=== PATIENT | male | born 1955 | race Caucasian/White ===

== ENCOUNTER → 2016-07-18 | Outpatient (CLI) | payer SELFPAY ==
[2016-06-23 08:05] VITALS: BP 164/79
--- NOTE | 2016-07-18 12:27 | RAD ---
HISTORY: Injury, fall, left shoulder pain Study: Left shoulder three view Comparison: None Findings: The appearance of the clavicle and AC joint are unremarkable. The glenohumeral articulation is norm al in its appearance. No acute cortical disruption or dislocation can be identified. The visualize d portions of the scapula are unremarkable. In addition, the visualized portions of the left hemith orax appear normal. IMPRESSION: 1. Negative exam. Reported By:
== END ==
LOC: RAD 11:07
PROVIDERS: ATTEND Nurse Practitioner Family
DX: M25.512 Pain in left shoulder (principal)
CPT/HCPCS: 73030

== ENCOUNTER 2016-08-03 15:24 | Inpatient (IN) | payer OTHER ==
[2016-08-03] MEDS ORDERED: TUSSIONEX PENNKINETIC SUSP PO PRN (16:14)
[2016-08-03] MEDS ORDERED: NS 1/2 1000 ML IV 1,000 ML IV ONE (16:47)
--- NOTE | 2016-08-03 16:56 | DR.H&P ---
H&P - History & Physical for Day of: H&P Date: 08/03/16 - Chief Complaint Chief Complaint: SOB, COUGH AND WHEEZING, WEAKNESS - Allergies Allergies/Adverse Reactions: Allergies Allergy/AdvReac Type Severity Reaction Status Date / Time No Known Drug Allergy Allergy Verified 06/19/16 10:45 - History of Present Illness History of Present Illness: 61 WHITE MALE DIRECT ADMIT FROM DR CRAVEN OFFICE WITH COPD EXACERBATION. 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 PT'S BP ELEVATED IN OFFICE TODAY 160/110. PT VERY ANXIOUS. PT ALSO HAS SEVERE OA AND CERVICAL DDD WITH PARESTHESIA TO BILATERAL UPPER EXTREMITIES. PLAN TO ADMIT FOR MANAGEMENT OF COPD EXACERBATION, DISCUSSED MARKETING CONTENT COORDINATOR SHELTER PLACEMENT DUE TO PROGRESSING OA, RESP DECLINE. - Past Medical History Past Medical History: Arthritis, COPD - Past Surgical History Surgical History: No History - Family History Family Medical History: Diabetes Mellitus, [place], Hypertension - Social History Does patient currently use any type of tobacco product: Yes Have you used tobacco products in the last 12 months: Yes Type of Tobacco Use: Cigarettes Does any household member use tobacco: No Alcohol Use: None Drug Use: None - Review of Systems Constitutional: Weakness Eyes: No Symptoms Reported ENT: Nose Discharge, Nose Congestion, Throat Pain Respiratory: Cough, Shortness of Breath, SOB with Excertion, Sputum, Wheezing Cardiovascular: Palpitations, Light Headedness Gastrointestinal: No Symptoms Reported Genitourinary: No Symptoms Reported Musculoskeletal: Back Pain, Leg Pain, Neck Pain Skin: No Symptoms Reported Neurological: Weakness - Physical Exam Vital Signs: Blood Pressure [Right Arm] 164/79 Blood Pressure 164/79 Oriented: Normal Eyes: Normal Ear: Normal Nose: Normal Throat: Dry Respiratory: Rhonchi Throughout, Wheezes Throughout Cardiovascular: Normal : Normal Auscultation: Bowel Sounds: Normal Palpation: Normal Tenderness: Epigastric Skin: Decreased Turgur Musculoskeletal: Shoulder, Leg, Back:Thoracic, Back:Lumbar Psychiatric: Anxiety Affect: Depressed Speech Pattern: Clear, Appropriate - Assessment/Plan (1) COPD (chronic obstructive pulmonary disease) Qualifiers: COPD type: COPD with acute exacerbation Chronic bronchitis type: C Emphysema type: E Qualified Code(s): J44.1 - Chronic obstructive pulmonary disease with (acute) exacerbation Status: Chronic Plan: ADMIT, PNEUMONIA PATHWAY, BLOOD AND SPUTUM CULTURES. IV ATBX, RESP THERAPY. CXR, EKG ON ADMISSION (2) Hypertensive urgency Status: Acute Plan: RESUME HOME MEDS, MONITOR. EKG ON ADMISSION (3) Weakness Status: Acute Plan: CHRONIC, PROGRESSIVE DUE TO SEVERE C SPINE AND L SPINE DDD WITH MYELOPATHY , PAIN CONTROL, PT (4) Cervical spine degeneration Qualifiers: Spinal osteoarthritis complication: S Status: Acute (5) Depression Qualifiers: Depression Type: D Major depression recurrence: M Active/Remission status : A Major depression episode severity: M Psychotic features: P Trimester: T Status: Chronic Plan: RESUME HOME MEDS (6) HTN (hypertension) Qualifiers: Hypertension type: H Status: Chronic
[2016-08-03] MEDS ORDERED: SALINE 0.9% 3 ML NEB TX ONE (16:57)
[2016-08-03] MEDS ORDERED: SALINE 0.9% 3 ML NEB TX NEB ONE (17:13)
[2016-08-03] MEDS: NS 1/2 1000 ML IV 1,000 ML IV SCH (17:15)
[2016-08-03] MEDS: ROCEPHIN VIAL 1 GM 1 GM in NS 50 ML IV + SPIKE MINIBAG* 50 ML IV SCH (17:16)
[2016-08-03] MEDS: ROBITUSSIN DM PO SCH ×2 (17:16→20:43)
[2016-08-03] MEDS: ZESTRIL TAB 10 MG PO SCH (17:17)
[2016-08-03] MEDS: XANAX PO PRN (17:17)
[2016-08-03 17:26] LABS: BASOPHILS # (AUTO) 0.1 X10^3/uL (0.0-0.1); BASOPHILS % (AUTO) 0.9 % (0.2-1.0); EOSINOPHILS # (AUTO) 0.1 x10^3/uL (0.0-0.2); EOSINOPHILS % (AUTO) 1.2 % (0.9-2.9); HEMATOCRIT 46.2 % (42.0-54.0); HEMOGLOBIN 16.3 g/dL (13.5-18.0); LYMPHOCYTES # (AUTO) 1.6 X10^3/uL (1.3-2.9); LYMPHOCYTES % (AUTO) 18.1 % (21.0-51.0); MEAN CORPUSCULAR HGB CONC 35.3 g/dL (33.0-35.0); MEAN CORPUSCULAR VOLUME 93.4 fL (80.0-100.0); MEAN PLATELET VOLUME 8.2 fL (7.4-11.0); MONOCYTES # (AUTO) 0.6 x10^3/uL (0.3-0.8); MONOCYTES % (AUTO) 6.2 % (0.0-13.0); NEUTROPHILS # (AUTO) 6.7 x10^3/uL (2.2-4.8); NEUTROPHILS % (AUTO) 73.6 % (42.0-75.0); PLATELET COUNT 159 X10^3/uL (150.0-450.0); RED BLOOD COUNT 4.95 X10^6/uL (4.7-6.0); RED CELL DISTRIBUTION WIDTH 13.4 % (11.6-16.5); WHITE BLOOD COUNT 9.1 X10^3/uL (3.6-10.0)
[2016-08-03 17:46] LABS: ALANINE AMINOTRANSFERASE 16 Units/L (12-78); ALBUMIN 4.1 g/dL (3.4-5.0); ALKALINE PHOSPHATASE 83 Units/L (46-116); ASPARTATE AMINO TRANSFERASE 12 Units/L (15-37); BLOOD UREA NITROGEN 19 mg/dL (7-18); CARBON DIOXIDE 28.4 mmol/L (21-32); CHLORIDE 102 mmol/L (98-107); GLUCOSE 72 mg/dL (65-99); MAGNESIUM 2.2 mg/dL (1.7-2.9); SODIUM 140 mmol/L (136-145); TOTAL PROTEIN 7.3 g/dL (6.4-8.2); eGFR BLACK RACES > 60 (>60); eGFR NON BLACK RACES > 60 (>60)
[2016-08-03 18:09] VITALS: BMI 22.6
[2016-08-03] MEDS ORDERED: POTASSIUM CHLORIDE LIQ 20 MEQ UDC PO PRN (18:27)
[2016-08-03] MEDS ORDERED: K-RIDER 10 MEQ/NS 100 ML 10 MEQ/100 ML BAG IV PRN (18:27)
[2016-08-03] MEDS ORDERED: K-LYTE EFFERVESCENT PO PRN (18:27)
[2016-08-03] MEDS ORDERED: K-DUR TAB 20 MEQ PO PRN (18:27)
[2016-08-03] MEDS: NICODERM PATCH 21 MG/24 HR TD SCH (18:46)
[2016-08-03] MEDS: CHECK PATCH XX SCH (20:44)
[2016-08-03] MEDS: DUONEB 0.5 MG/3 MG NEB SCH (21:42)
[2016-08-04] MEDS ORDERED: LEXAPRO ONE (07:58)
[2016-08-04] MEDS: CHECK PATCH XX SCH ×2 (08:06→21:16)
[2016-08-04] MEDS: LEVAQUIN PREMIX IV 500 MG 500 MG/100 ML BAG IV SCH (08:07)
[2016-08-04] MEDS: NICODERM PATCH 21 MG/24 HR TD SCH (08:07)
[2016-08-04] MEDS: LEXAPRO PO SCH (08:07)
[2016-08-04] MEDS: ROCEPHIN VIAL 1 GM 1 GM in NS 50 ML IV + SPIKE MINIBAG* 50 ML IV SCH (08:08)
[2016-08-04] MEDS: NORCO 10/325 TAB PO PRN ×2 (08:08→21:15)
[2016-08-04] MEDS: ROBITUSSIN DM PO SCH ×4 (08:08→21:15)
[2016-08-04] MEDS: ZESTRIL TAB 10 MG PO SCH (08:08)
[2016-08-04] MEDS: XANAX PO PRN ×2 (08:09→21:16)
[2016-08-04] MEDS: DUONEB 0.5 MG/3 MG NEB SCH ×4 (08:40→20:52)
--- NOTE | 2016-08-04 09:06 | RAD ---
HISTORY: Cough and pneumonia Study: PA and lateral Comparison: 06/21/2016 Findings: The heart is normal. The pulmonary vessels are normal. The lungs are mildly hyperinflated but clear. No consolidation or effusion is seen. The bones are intact. IMPRESSION: Stable chronic changes with no acute abnormality seen. Reported By:
--- NOTE | 2016-08-04 09:15 | CT ---
HISTORY: Shortness of breath, COPD Study: Noncontrast CT scan of the chest Comparison: Chest x-ray done August 03, 2016 Technique: non contrasted CT images of the chest are reviewed in axial, coronal and sagittal planes. Dose reduction techniques utilized automatic exposure control. Findings: There are changes of centrilobular emphysema bilaterally. There is a noncalcified 5.8 millimeter no other nodules are seen. nodule present in the lateral segment of the right middle lobe. Depending on the patient's level of risk, patient may not need CT followup. If high risk optional CT may be obtained at 12 months. No other nodules are seen. There is no evidence of adenopathy, infiltrate or pleural fluid. There are c hanges of mild cylindrical bronchiectasis bilaterally. Heavy right and left coronary artery calcific ations are seen. There is no evidence of thoracic aortic aneurysm. Multiple small bilateral nonobstr ucting kidney stones are present. The liver and adrenal glands are normal. There is multilevel anter ior thoracic spondylosis. IMPRESSION: Noncalcified right middle lobe nodule measuring 5.8 millimeters. Other nodules are seen. There is no evidence of adenopathy or fluid. No infiltrate is seen. Changes of COPD with centrilobular emphysema and mild cylindrical bronchiectasis. Reported By:
[2016-08-04] MEDS: MOBIC TAB 15 MG PO SCH (09:51)
[2016-08-04 12:26] LABS: BASOPHILS % (AUTO) 0.5 % (0.2-1.0); EOSINOPHILS # (AUTO) 0.1 x10^3/uL (0.0-0.2); EOSINOPHILS % (AUTO) 0.8 % (0.9-2.9); HEMATOCRIT 42.3 % (42.0-54.0); HEMOGLOBIN 14.7 g/dL (13.5-18.0); LYMPHOCYTES # (AUTO) 1.3 X10^3/uL (1.3-2.9); LYMPHOCYTES % (AUTO) 17.8 % (21.0-51.0); MEAN CORPUSCULAR HEMOGLOBIN 32.9 pg (27.0-34.0); MEAN CORPUSCULAR HGB CONC 34.8 g/dL (33.0-35.0); MEAN CORPUSCULAR VOLUME 94.5 fL (80.0-100.0); MEAN PLATELET VOLUME 8.3 fL (7.4-11.0); MONOCYTES # (AUTO) 0.5 x10^3/uL (0.3-0.8); MONOCYTES % (AUTO) 6.6 % (0.0-13.0); NEUTROPHILS # (AUTO) 5.4 x10^3/uL (2.2-4.8); NEUTROPHILS % (AUTO) 74.3 % (42.0-75.0); PLATELET COUNT 137 X10^3/uL (150.0-450.0); RED BLOOD COUNT 4.48 X10^6/uL (4.7-6.0); RED CELL DISTRIBUTION WIDTH 13.5 % (11.6-16.5); WHITE BLOOD COUNT 7.3 X10^3/uL (3.6-10.0)
[2016-08-04 12:33] LABS: ALANINE AMINOTRANSFERASE 14 Units/L (12-78); ALBUMIN 3.2 g/dL (3.4-5.0); ALKALINE PHOSPHATASE 70 Units/L (46-116); ASPARTATE AMINO TRANSFERASE 10 Units/L (15-37); BLOOD UREA NITROGEN 19 mg/dL (7-18); CALCIUM 8.7 mg/dL (8.5-10.1); CARBON DIOXIDE 30.8 mmol/L (21-32); CHLORIDE 106 mmol/L (98-107); COR CA(FOR HYPOALB) 9.3 mg/dL (8.5-10.1); COR NA(FOR HYPERGLY) 141 mmol/L (136-145); CREATININE 1.12 mg/dL (0.70-1.30); GLUCOSE 116 mg/dL (65-99); SODIUM 141 mmol/L (136-145); TOTAL PROTEIN 6.1 g/dL (6.4-8.2); eGFR BLACK RACES > 60 (>60); eGFR NON BLACK RACES > 60 (>60)
[2016-08-04] MEDS: NS 1/2 1000 ML IV 1,000 ML IV SCH (12:58)
[2016-08-04] MEDS ORDERED: NS 1/2 1000 ML IV 1,000 ML IV ONE (13:00)
--- NOTE | 2016-08-04 14:48 | PCM.PROG ---
Progress Note - Progress Note for Day of Date: 08/04/16 - Subjective Subjective: patient is a 61-year-old white male who was admitted on 08/03 with COPD exacerbation. Plan to continue IV antibiotics and respiratory therapy. Patient has continued complaints of neck and upper extremity pain. Plan to continue with pain control and discussed with case management plan for rehabilitation therapy. - Past Medical Family Social History Past Med/Fam/Surg Hx: No changes since H&P Allergies: Allergies No Known Drug Allergy Allergy (Verified 06/19/16 10:45) - Review of Systems ROS: No change since H&P - Vital Signs and I&O's Vital Signs: Temperature 98 F Pulse Rate [Right Brachial] 70 Pulse Rate 68 Respiratory Rate 18 Blood Pressure [Right Arm] 105/58 Blood Pressure 164/79 O2 Sat by Pulse Oximetry 94 Intake and Output: Intake & Output 08/02/16 08/03/16 08/04/16 08/05/16 11:59 11:59 11:59 11:59 Intake Total 600 Balance 600 - Physical Exam Oriented: Normal Eyes: Normal Ear: Normal Nose: Normal Throat: Dry Respiratory: Diminished, Rhonchi Cardiovascular: Normal : Normal Auscultation: Bowel Sounds: Normal Tenderness: Epigastric Skin: Decreased Turgur Musculoskeletal: Shoulder, Leg, Back:Thoracic, Back:Lumbar Psychiatric: Anxiety Affect: Depressed Speech Pattern: Clear, Appropriate - Laboratory and Diagnostics Result Diagrams: 08/04/16 12:10 08/04/16 12:10 Labs: 08/03/16 17:15 Sputum - Expectorated Sputum Sputum Culture - Preliminary 08/03/16 17:15 Sputum - Expectorated Sputum - Final Laboratory WBC 7.3 X10^3/uL (3.6-10.0) 08/04/16 12:10 RBC 4.48 X10^6/uL (4.7-6.0) L 08/04/16 12:10 Hgb 14.7 g/dL (13.5-18.0) 08/04/16 12:10 Hct 42.3 % (42.0-54.0) 08/04/16 12:10 MCV 94.5 fL (80.0-100.0) 08/04/16 12:10 MCH 32.9 pg (27.0-34.0) 08/04/16 12:10 MCHC 34.8 g/dL (33.0-35.0) 08/04/16 12:10 RDW 13.5 % (11.6-16.5) 08/04/16 12:10 Plt Count 137 X10^3/uL (150.0-450.0) L 08/04/16 12:10 MPV 8.3 fL (7.4-11.0) 08/04/16 12:10 Neut % 74.3 % (42.0-75.0) 08/04/16 12:10 Lymph % 17.8 % (21.0-51.0) L 08/04/16 12:10 [place] % 6.6 % (0.0-13.0) 08/04/16 12:10 Eos % 0.8 % (0.9-2.9) L 08/04/16 12:10 Baso % 0.5 % (0.2-1.0) 08/04/16 12:10 Neut # 5.4 x10^3/uL (2.2-4.8) H 08/04/16 12:10 Lymph # 1.3 X10^3/uL (1.3-2.9) 08/04/16 12:10 [place] # 0.5 x10^3/uL (0.3-0.8) 08/04/16 12:10 Eos # 0.1 x10^3/uL (0.0-0.2) 08/04/16 12:10 Baso # 0.0 X10^3/uL (0.0-0.1) 08/04/16 12:10 Absolute Nucleated RBC 0.0 /100WBC 08/04/16 12:10 Sodium 141 mmol/L (136-145) 08/04/16 12:10 Corrected Sodium 141 mmol/L (136-145) 08/04/16 12:10 Potassium 3.9 mmol/L (3.5-5.1) 08/04/16 12:10 Chloride 106 mmol/L (98-107) 08/04/16 12:10 Carbon Dioxide 30.8 mmol/L (21-32) 08/04/16 12:10 BUN 19 mg/dL (7-18) H 08/04/16 12:10 Creatinine 1.12 mg/dL (0.70-1.30) 08/04/16 12:10 Est GFR (MDRD) Af Amer > 60 (>60) 08/04/16 12:10 Est GFR (MDRD) Non-Af > 60 (>60) 08/04/16 12:10 Glucose 116 mg/dL (65-99) H 08/04/16 12:10 Calcium 8.7 mg/dL (8.5-10.1) 08/04/16 12:10 Corrected Calcium 9.3 mg/dL (8.5-10.1) 08/04/16 12:10 Magnesium 2.2 mg/dL (1.7-2.9) 08/03/16 17:15 Total Bilirubin 0.30 mg/dL (0.2-1.0) 08/04/16 12:10 AST 10 Units/L (15-37) L 08/04/16 12:10 ALT 14 Units/L (12-78) 08/04/16 12:10 Alkaline Phosphatase 70 Units/L (46-116) 08/04/16 12:10 Total Protein 6.1 g/dL (6.4-8.2) L 08/04/16 12:10 Albumin 3.2 g/dL (3.4-5.0) L 08/04/16 12:10 Globulin 2.9 g/dL (2.5-4.5) 08/04/16 12:10 Albumin/Globulin Ratio 1.1 Ratio (1.1-2.1) 08/04/16 12:10 - Plan (1) COPD (chronic obstructive pulmonary disease) Status: Chronic Qualifiers: COPD type: COPD with acute exacerbation Chronic bronchitis type: C Emphysema type: E Qualified Code(s): J44.1 - Chronic obstructive pulmonary disease with (acute) exacerbation Plan: BLOOD AND SPUTUM CULTURES collected on admission. IV ATBX, RESP THERAPY. CXR, EKG ON ADMISSION (2) Hypertensive urgency Status: Acute Plan: RESUME HOME MEDS, MONITOR. EKG ON ADMISSION (3) Weakness Status: Acute Plan: CHRONIC, PROGRESSIVE DUE TO SEVERE C SPINE AND L SPINE DDD WITH MYELOPATHY , PAIN CONTROL, PT (4) Cervical spine degeneration Status: Acute Qualifiers: Spinal osteoarthritis complication: S (5) Depression Status: Chronic Qualifiers: Depression Type: D Major depression recurrence: M Active/Remission status : A Major depression episode severity: M Psychotic features: P Trimester: T Plan: RESUME HOME MEDS (6) HTN (hypertension) Status: Chronic Qualifiers: Hypertension type: H
[2016-08-05] MEDS ORDERED: NS 1/2 1000 ML IV 1,000 ML IV ONE (04:25)
[2016-08-05] MEDS: NS 1/2 1000 ML IV 1,000 ML IV SCH ×2 (06:14→09:45)
[2016-08-05 06:24] LABS: BASOPHILS % (AUTO) 0.9 % (0.2-1.0); EOSINOPHILS # (AUTO) 0.1 x10^3/uL (0.0-0.2); EOSINOPHILS % (AUTO) 1.9 % (0.9-2.9); HEMATOCRIT 39.3 % (42.0-54.0); HEMOGLOBIN 13.6 g/dL (13.5-18.0); LYMPHOCYTES # (AUTO) 1.5 X10^3/uL (1.3-2.9); LYMPHOCYTES % (AUTO) 27.5 % (21.0-51.0); MEAN CORPUSCULAR HGB CONC 34.6 g/dL (33.0-35.0); MEAN CORPUSCULAR VOLUME 95.2 fL (80.0-100.0); MEAN PLATELET VOLUME 8.6 fL (7.4-11.0); MONOCYTES # (AUTO) 0.4 x10^3/uL (0.3-0.8); MONOCYTES % (AUTO) 6.9 % (0.0-13.0); NEUTROPHILS # (AUTO) 3.4 x10^3/uL (2.2-4.8); NEUTROPHILS % (AUTO) 62.8 % (42.0-75.0); PLATELET COUNT 126 X10^3/uL (150.0-450.0); RED BLOOD COUNT 4.12 X10^6/uL (4.7-6.0); RED CELL DISTRIBUTION WIDTH 13.5 % (11.6-16.5); WHITE BLOOD COUNT 5.4 X10^3/uL (3.6-10.0)
[2016-08-05 06:30] LABS: ALANINE AMINOTRANSFERASE 13 Units/L (12-78); ALBUMIN 2.8 g/dL (3.4-5.0); ALKALINE PHOSPHATASE 70 Units/L (46-116); ASPARTATE AMINO TRANSFERASE 9 Units/L (15-37); BLOOD UREA NITROGEN 16 mg/dL (7-18); CALCIUM 8.4 mg/dL (8.5-10.1); CARBON DIOXIDE 30.7 mmol/L (21-32); CHLORIDE 108 mmol/L (98-107); COR CA(FOR HYPOALB) 9.4 mg/dL (8.5-10.1); GLUCOSE 93 mg/dL (65-99); SODIUM 143 mmol/L (136-145); TOTAL PROTEIN 5.5 g/dL (6.4-8.2); eGFR BLACK RACES > 60 (>60); eGFR NON BLACK RACES > 60 (>60)
[2016-08-05] MEDS: DUONEB 0.5 MG/3 MG NEB SCH ×4 (08:06→20:22)
[2016-08-05] MEDS ORDERED: LEXAPRO ONE (09:09)
[2016-08-05] MEDS: LEVAQUIN PREMIX IV 500 MG 500 MG/100 ML BAG IV SCH (09:43)
[2016-08-05] MEDS: ZESTRIL TAB 10 MG PO SCH (09:44)
[2016-08-05] MEDS: NICODERM PATCH 21 MG/24 HR TD SCH (09:44)
[2016-08-05] MEDS: ROCEPHIN VIAL 1 GM 1 GM in NS 50 ML IV + SPIKE MINIBAG* 50 ML IV SCH (09:44)
[2016-08-05] MEDS: LEXAPRO PO SCH (09:44)
[2016-08-05] MEDS: ROBITUSSIN DM PO SCH ×4 (09:44→21:09)
[2016-08-05] MEDS: MOBIC TAB 15 MG PO SCH (09:44)
[2016-08-05] MEDS: CHECK PATCH XX SCH ×2 (09:45→21:08)
[2016-08-05] MEDS: XANAX PO PRN ×2 (13:41→21:08)
[2016-08-05] MEDS: NORCO 10/325 TAB PO PRN (13:41)
[2016-08-06] MEDS ORDERED: NS 1/2 1000 ML IV 1,000 ML IV ONE ×2 (05:33→20:43)
[2016-08-06] MEDS: NS 1/2 1000 ML IV 1,000 ML IV SCH ×2 (05:44→20:49)
[2016-08-06 06:46] LABS: BASOPHILS # (AUTO) 0.1 X10^3/uL (0.0-0.1); BASOPHILS % (AUTO) 1.2 % (0.2-1.0); EOSINOPHILS # (AUTO) 0.1 x10^3/uL (0.0-0.2); EOSINOPHILS % (AUTO) 2.6 % (0.9-2.9); HEMATOCRIT 40.6 % (42.0-54.0); LYMPHOCYTES # (AUTO) 1.2 X10^3/uL (1.3-2.9); LYMPHOCYTES % (AUTO) 25.4 % (21.0-51.0); MEAN CORPUSCULAR HEMOGLOBIN 33.1 pg (27.0-34.0); MEAN CORPUSCULAR HGB CONC 34.6 g/dL (33.0-35.0); MEAN CORPUSCULAR VOLUME 95.7 fL (80.0-100.0); MEAN PLATELET VOLUME 8.4 fL (7.4-11.0); MONOCYTES # (AUTO) 0.4 x10^3/uL (0.3-0.8); MONOCYTES % (AUTO) 8.8 % (0.0-13.0); NEUTROPHILS # (AUTO) 2.9 x10^3/uL (2.2-4.8); PLATELET COUNT 133 X10^3/uL (150.0-450.0); RED BLOOD COUNT 4.24 X10^6/uL (4.7-6.0); RED CELL DISTRIBUTION WIDTH 13.4 % (11.6-16.5); WHITE BLOOD COUNT 4.7 X10^3/uL (3.6-10.0)
[2016-08-06 07:03] LABS: ALANINE AMINOTRANSFERASE 18 Units/L (12-78); ALBUMIN 3.3 g/dL (3.4-5.0); ALKALINE PHOSPHATASE 67 Units/L (46-116); ASPARTATE AMINO TRANSFERASE 16 Units/L (15-37); BLOOD UREA NITROGEN 12 mg/dL (7-18); CALCIUM 8.7 mg/dL (8.5-10.1); CARBON DIOXIDE 29.6 mmol/L (21-32); CHLORIDE 106 mmol/L (98-107); COR CA(FOR HYPOALB) 9.3 mg/dL (8.5-10.1); CREATININE 1.01 mg/dL (0.70-1.30); GLUCOSE 79 mg/dL (65-99); SODIUM 143 mmol/L (136-145); TOTAL PROTEIN 6.2 g/dL (6.4-8.2); eGFR BLACK RACES > 60 (>60); eGFR NON BLACK RACES > 60 (>60)
[2016-08-06] MEDS: DUONEB 0.5 MG/3 MG NEB SCH ×4 (08:02→20:42)
[2016-08-06] MEDS ORDERED: LEXAPRO ONE (09:19)
[2016-08-06] MEDS: ROCEPHIN VIAL 1 GM 1 GM in NS 50 ML IV + SPIKE MINIBAG* 50 ML IV SCH (09:39)
[2016-08-06] MEDS: MILK OF MAGNESIA PO PRN (09:39)
[2016-08-06] MEDS: ROBITUSSIN DM PO SCH ×4 (09:39→20:49)
[2016-08-06] MEDS: MOBIC TAB 15 MG PO SCH (09:39)
[2016-08-06] MEDS: COLACE CAP 100 MG PO PRN (09:39)
[2016-08-06] MEDS: CHECK PATCH XX SCH ×2 (09:40→20:52)
[2016-08-06] MEDS: NICODERM PATCH 21 MG/24 HR TD SCH (09:40)
[2016-08-06] MEDS: LEVAQUIN PREMIX IV 500 MG 500 MG/100 ML BAG IV SCH (09:40)
[2016-08-06] MEDS: ZESTRIL TAB 10 MG PO SCH (09:40)
[2016-08-06] MEDS: LEXAPRO PO SCH (09:40)
[2016-08-06] MEDS: NORCO 10/325 TAB PO PRN ×2 (13:59→20:49)
[2016-08-06] MEDS: XANAX PO PRN (20:49)
[2016-08-07] MEDS: NS 1/2 1000 ML IV 1,000 ML IV SCH ×3 (01:50→22:24)
[2016-08-07 05:13] LABS: ALANINE AMINOTRANSFERASE 18 Units/L (12-78); ALBUMIN 3.1 g/dL (3.4-5.0); ALKALINE PHOSPHATASE 59 Units/L (46-116); ASPARTATE AMINO TRANSFERASE 16 Units/L (15-37); BLOOD UREA NITROGEN 14 mg/dL (7-18); CALCIUM 8.6 mg/dL (8.5-10.1); CARBON DIOXIDE 28.6 mmol/L (21-32); CHLORIDE 107 mmol/L (98-107); COR CA(FOR HYPOALB) 9.3 mg/dL (8.5-10.1); CREATININE 0.94 mg/dL (0.70-1.30); GLUCOSE 81 mg/dL (65-99); SODIUM 143 mmol/L (136-145); TOTAL PROTEIN 5.8 g/dL (6.4-8.2); eGFR BLACK RACES > 60 (>60); eGFR NON BLACK RACES > 60 (>60)
[2016-08-07 05:14] LABS: BASOPHILS % (AUTO) 1.1 % (0.2-1.0); EOSINOPHILS # (AUTO) 0.1 x10^3/uL (0.0-0.2); EOSINOPHILS % (AUTO) 3.4 % (0.9-2.9); HEMATOCRIT 37.4 % (42.0-54.0); HEMOGLOBIN 13.1 g/dL (13.5-18.0); LYMPHOCYTES # (AUTO) 1.5 X10^3/uL (1.3-2.9); LYMPHOCYTES % (AUTO) 34.4 % (21.0-51.0); MEAN CORPUSCULAR HEMOGLOBIN 33.5 pg (27.0-34.0); MEAN CORPUSCULAR VOLUME 95.6 fL (80.0-100.0); MEAN PLATELET VOLUME 8.4 fL (7.4-11.0); MONOCYTES # (AUTO) 0.3 x10^3/uL (0.3-0.8); MONOCYTES % (AUTO) 7.9 % (0.0-13.0); NEUTROPHILS # (AUTO) 2.3 x10^3/uL (2.2-4.8); NEUTROPHILS % (AUTO) 53.2 % (42.0-75.0); PLATELET COUNT 122 X10^3/uL (150.0-450.0); RED BLOOD COUNT 3.91 X10^6/uL (4.7-6.0); RED CELL DISTRIBUTION WIDTH 13.5 % (11.6-16.5); WHITE BLOOD COUNT 4.4 X10^3/uL (3.6-10.0)
[2016-08-07] MEDS ORDERED: LEXAPRO ONE (08:37)
[2016-08-07] MEDS: DUONEB 0.5 MG/3 MG NEB SCH ×5 (08:43→20:59)
[2016-08-07] MEDS: ROCEPHIN VIAL 1 GM 1 GM in NS 50 ML IV + SPIKE MINIBAG* 50 ML IV SCH (09:17)
[2016-08-07] MEDS: LEVAQUIN PREMIX IV 500 MG 500 MG/100 ML BAG IV SCH (09:18)
[2016-08-07] MEDS: COLACE CAP 100 MG PO PRN ×2 (09:19→22:24)
[2016-08-07] MEDS: MILK OF MAGNESIA PO PRN ×2 (09:19→22:24)
[2016-08-07] MEDS: ZESTRIL TAB 10 MG PO SCH (09:19)
[2016-08-07] MEDS: ROBITUSSIN DM PO SCH ×4 (09:19→22:23)
[2016-08-07] MEDS: NICODERM PATCH 21 MG/24 HR TD SCH (09:20)
[2016-08-07] MEDS: LEXAPRO PO SCH (09:20)
[2016-08-07] MEDS: MOBIC TAB 15 MG PO SCH (09:20)
[2016-08-07] MEDS: CHECK PATCH XX SCH ×2 (09:21→22:23)
--- NOTE | 2016-08-07 13:22 | RAD ---
HISTORY: Cough, shortness of breath Study: Chest two-view Comparison: August 03, 2016, CT chest August 04, 2016 Findings: The heart is within normal limits in size. The anita are normal. The aorta is calcified. The lungs ar e hyperinflated consistent with COPD. No acute alveolar infiltrates are identified. The right middle lobe nodule described on the CT is not visible on plain film and follow up should be with CT. The b ricky thorax is unremarkable. IMPRESSION: Lungs hyperinflated but clear, consistent with COPD in the appropriate clinical setting Reported By:
--- NOTE | 2016-08-07 16:56 | PCM.PROG ---
Progress Note - Progress Note for Day of Date: 08/07/16 - Subjective Subjective: patient is a 61-year-old white male who was admitted on 08/03 with COPD exacerbation. Plan to continue IV antibiotics and respiratory therapy. Patient has continued complaints of neck and upper extremity pain. Pt has severe DDD to c spine. pt MRI sent to disability patient advocate. Plan to continue with pain control and discussed with case management plan for rehabilitation therapy. - Past Medical Family Social History Past Med/Fam/Surg Hx: No changes since H&P Allergies: Allergies No Known Drug Allergy Allergy (Verified 06/19/16 10:45) - Review of Systems ROS: No change since H&P - Vital Signs and I&O's Vital Signs: Temperature 98.1 F Pulse Rate [Right Brachial] 114 Pulse Rate 78 Respiratory Rate 18 Blood Pressure [Right Arm] 126/85 Blood Pressure 164/79 O2 Sat by Pulse Oximetry 92 Intake and Output: Intake & Output 08/05/16 08/06/16 08/07/16 08/08/16 11:59 11:59 11:59 11:59 Intake Total 2408 1832 2520 1610 Balance 2408 1832 2520 1610 - Physical Exam Oriented: Normal Eyes: Normal Ear: Normal Nose: Normal Throat: Dry Respiratory: Diminished, Rhonchi Cardiovascular: Normal : Normal Auscultation: Bowel Sounds: Normal Tenderness: Epigastric Skin: Decreased Turgur Musculoskeletal: Shoulder, Leg, Back:Thoracic, Back:Lumbar Psychiatric: Anxiety Affect: Depressed Speech Pattern: Clear, Appropriate - Laboratory and Diagnostics Result Diagrams: 08/07/16 03:40 08/07/16 03:40 Labs: 08/03/16 17:15 Blood Blood Culture - Preliminary 08/03/16 17:05 Blood Blood Culture - Preliminary 08/03/16 17:15 Sputum - Expectorated Sputum Sputum Culture - Final 08/03/16 17:15 Sputum - Expectorated Sputum - Final Laboratory WBC 4.4 X10^3/uL (3.6-10.0) 08/07/16 03:40 RBC 3.91 X10^6/uL (4.7-6.0) L 08/07/16 03:40 Hgb 13.1 g/dL (13.5-18.0) L 08/07/16 03:40 Hct 37.4 % (42.0-54.0) L 08/07/16 03:40 MCV 95.6 fL (80.0-100.0) 08/07/16 03:40 MCH 33.5 pg (27.0-34.0) 08/07/16 03:40 MCHC 35.0 g/dL (33.0-35.0) 08/07/16 03:40 RDW 13.5 % (11.6-16.5) 08/07/16 03:40 Plt Count 122 X10^3/uL (150.0-450.0) L 08/07/16 03:40 MPV 8.4 fL (7.4-11.0) 08/07/16 03:40 Neut % 53.2 % (42.0-75.0) 08/07/16 03:40 Lymph % 34.4 % (21.0-51.0) 08/07/16 03:40 [place] % 7.9 % (0.0-13.0) 08/07/16 03:40 Eos % 3.4 % (0.9-2.9) H 08/07/16 03:40 Baso % 1.1 % (0.2-1.0) H 08/07/16 03:40 Neut # 2.3 x10^3/uL (2.2-4.8) 08/07/16 03:40 Lymph # 1.5 X10^3/uL (1.3-2.9) 08/07/16 03:40 [place] # 0.3 x10^3/uL (0.3-0.8) 08/07/16 03:40 Eos # 0.1 x10^3/uL (0.0-0.2) 08/07/16 03:40 Baso # 0.0 X10^3/uL (0.0-0.1) 08/07/16 03:40 Absolute Nucleated RBC 0.0 /100WBC 08/07/16 03:40 Sodium 143 mmol/L (136-145) 08/07/16 03:40 Corrected Sodium TNP 08/07/16 03:40 Potassium 3.9 mmol/L (3.5-5.1) 08/07/16 03:40 Chloride 107 mmol/L (98-107) 08/07/16 03:40 Carbon Dioxide 28.6 mmol/L (21-32) 08/07/16 03:40 BUN 14 mg/dL (7-18) 08/07/16 03:40 Creatinine 0.94 mg/dL (0.70-1.30) 08/07/16 03:40 Est GFR (MDRD) Af Amer > 60 (>60) 08/07/16 03:40 Est GFR (MDRD) Non-Af > 60 (>60) 08/07/16 03:40 Glucose 81 mg/dL (65-99) 08/07/16 03:40 Calcium 8.6 mg/dL (8.5-10.1) 08/07/16 03:40 Corrected Calcium 9.3 mg/dL (8.5-10.1) 08/07/16 03:40 Magnesium 2.2 mg/dL (1.7-2.9) 08/03/16 17:15 Total Bilirubin 0.50 mg/dL (0.2-1.0) 08/07/16 03:40 AST 16 Units/L (15-37) 08/07/16 03:40 ALT 18 Units/L (12-78) 08/07/16 03:40 Alkaline Phosphatase 59 Units/L (46-116) 08/07/16 03:40 Total Protein 5.8 g/dL (6.4-8.2) L 08/07/16 03:40 Albumin 3.1 g/dL (3.4-5.0) L 08/07/16 03:40 Globulin 2.7 g/dL (2.5-4.5) 08/07/16 03:40 Albumin/Globulin Ratio 1.1 Ratio (1.1-2.1) 08/07/16 03:40 - Plan (1) COPD (chronic obstructive pulmonary disease) Status: Chronic Qualifiers: COPD type: COPD with acute exacerbation Chronic bronchitis type: C Emphysema type: E Qualified Code(s): J44.1 - Chronic obstructive pulmonary disease with (acute) exacerbation Plan: COUGH AND WHEEZING IMPROVED. IV ATBX, RESP THERAPY. CXR, EKG ON ADMISSION (2) Hypertensive urgency Status: Inactive Plan: RESUME HOME MEDS, MONITOR. EKG ON ADMISSION (3) Weakness Status: Acute Plan: CHRONIC, PROGRESSIVE DUE TO SEVERE C SPINE AND L SPINE DDD WITH MYELOPATHY , PAIN CONTROL, PT (4) Cervical spine degeneration Status: Chronic Qualifiers: Spinal osteoarthritis complication: S (5) Depression Status: Chronic Qualifiers: Depression Type: D Major depression recurrence: M Active/Remission status : A Major depression episode severity: M Psychotic features: P Trimester: T Plan: RESUME HOME MEDS (6) HTN (hypertension) Status: Chronic Qualifiers: Hypertension type: H
[2016-08-07] MEDS ORDERED: NS 1/2 1000 ML IV 1,000 ML IV ONE (17:20)
[2016-08-08 05:27] LABS: BASOPHILS % (AUTO) 0.8 % (0.2-1.0); EOSINOPHILS # (AUTO) 0.2 x10^3/uL (0.0-0.2); EOSINOPHILS % (AUTO) 3.3 % (0.9-2.9); HEMOGLOBIN 14.2 g/dL (13.5-18.0); LYMPHOCYTES # (AUTO) 1.5 X10^3/uL (1.3-2.9); LYMPHOCYTES % (AUTO) 26.3 % (21.0-51.0); MEAN CORPUSCULAR HGB CONC 34.5 g/dL (33.0-35.0); MEAN CORPUSCULAR VOLUME 95.7 fL (80.0-100.0); MEAN PLATELET VOLUME 8.5 fL (7.4-11.0); MONOCYTES # (AUTO) 0.4 x10^3/uL (0.3-0.8); MONOCYTES % (AUTO) 7.2 % (0.0-13.0); NEUTROPHILS # (AUTO) 3.5 x10^3/uL (2.2-4.8); NEUTROPHILS % (AUTO) 62.4 % (42.0-75.0); PLATELET COUNT 134 X10^3/uL (150.0-450.0); RED BLOOD COUNT 4.29 X10^6/uL (4.7-6.0); RED CELL DISTRIBUTION WIDTH 13.5 % (11.6-16.5); WHITE BLOOD COUNT 5.6 X10^3/uL (3.6-10.0)
[2016-08-08 05:40] LABS: ALANINE AMINOTRANSFERASE 22 Units/L (12-78); ALBUMIN 3.5 g/dL (3.4-5.0); ALKALINE PHOSPHATASE 66 Units/L (46-116); ASPARTATE AMINO TRANSFERASE 21 Units/L (15-37); BLOOD UREA NITROGEN 15 mg/dL (7-18); CALCIUM 9.1 mg/dL (8.5-10.1); CARBON DIOXIDE 29.2 mmol/L (21-32); CHLORIDE 107 mmol/L (98-107); CREATININE 0.93 mg/dL (0.70-1.30); GLUCOSE 90 mg/dL (65-99); SODIUM 144 mmol/L (136-145); TOTAL PROTEIN 6.4 g/dL (6.4-8.2); eGFR BLACK RACES > 60 (>60); eGFR NON BLACK RACES > 60 (>60)
[2016-08-08] MEDS ORDERED: LEXAPRO ONE (07:55)
[2016-08-08] MEDS: DUONEB 0.5 MG/3 MG NEB SCH ×4 (08:12→21:11)
[2016-08-08] MEDS: NICODERM PATCH 21 MG/24 HR TD SCH (09:31)
[2016-08-08] MEDS: ROBITUSSIN DM PO SCH ×4 (09:32→21:33)
[2016-08-08] MEDS: MOBIC TAB 15 MG PO SCH (09:32)
[2016-08-08] MEDS: LEXAPRO PO SCH (09:32)
[2016-08-08] MEDS: LEVAQUIN PREMIX IV 500 MG 500 MG/100 ML BAG IV SCH (09:32)
[2016-08-08] MEDS: ZESTRIL TAB 10 MG PO SCH (09:32)
[2016-08-08] MEDS: ROCEPHIN VIAL 1 GM 1 GM in NS 50 ML IV + SPIKE MINIBAG* 50 ML IV SCH (09:33)
[2016-08-08] MEDS: CHECK PATCH XX SCH ×2 (09:33→21:34)
[2016-08-08] MEDS ORDERED: NS 1/2 1000 ML IV 1,000 ML IV ONE (14:48)
[2016-08-08] MEDS: NS 1/2 1000 ML IV 1,000 ML IV SCH ×2 (15:24→20:12)
[2016-08-08] MEDS ORDERED: RESTORIL CAP 30 MG PO PRN (18:17)
--- NOTE | 2016-08-08 18:19 | PCM.PROG ---
Progress Note - Progress Note for Day of Date: 08/08/16 - Subjective Subjective: patient is a 61-year-old white male who was admitted on 08/03 with COPD exacerbation. Plan to continue IV antibiotics and respiratory therapy. Patient has continued complaints of neck and upper extremity pain. Pt has severe DDD to c spine. pt MRI sent to disability patient advocate. Plan to continue with pain control and discussed with case management plan for rehabilitation therapy. Pt unable to recieved [facility] rehab therapy due to insurance. Case management to contact adult protective services due to homeless , inability to perform ADL's - Past Medical Family Social History Past Med/Fam/Surg Hx: No changes since H&P Allergies: Allergies No Known Drug Allergy Allergy (Verified 06/19/16 10:45) - Review of Systems ROS: No change since H&P - Vital Signs and I&O's Vital Signs: Temperature 98.1 F Pulse Rate [Left Brachial] 79 Pulse Rate [Right Brachial] 90 Pulse Rate 67 Respiratory Rate 20 Blood Pressure [Left Arm] 159/86 Blood Pressure [Right Arm] 170/93 Blood Pressure 164/79 O2 Sat by Pulse Oximetry 95 Intake and Output: Intake & Output 08/06/16 08/07/16 08/08/16 08/09/16 11:59 11:59 11:59 11:59 Intake Total 1832 2520 2880 1180 Balance 1832 2520 2880 1180 - Physical Exam Oriented: Normal Eyes: Normal Ear: Normal Nose: Normal Throat: Dry Respiratory: Diminished, Rhonchi Cardiovascular: Normal : Normal Auscultation: Bowel Sounds: Normal Tenderness: Epigastric Skin: Decreased Turgur Musculoskeletal: Shoulder, Leg, Back:Thoracic, Back:Lumbar Psychiatric: Anxiety Affect: Depressed Speech Pattern: Clear, Appropriate - Laboratory and Diagnostics Result Diagrams: 08/08/16 04:05 08/08/16 04:05 Labs: 08/03/16 17:15 Blood Blood Culture - Final 08/03/16 17:05 Blood Blood Culture - Final 08/03/16 17:15 Sputum - Expectorated Sputum Sputum Culture - Final 08/03/16 17:15 Sputum - Expectorated Sputum - Final Laboratory WBC 5.6 X10^3/uL (3.6-10.0) 08/08/16 04:05 RBC 4.29 X10^6/uL (4.7-6.0) L 08/08/16 04:05 Hgb 14.2 g/dL (13.5-18.0) 08/08/16 04:05 Hct 41.0 % (42.0-54.0) L 08/08/16 04:05 MCV 95.7 fL (80.0-100.0) 08/08/16 04:05 MCH 33.0 pg (27.0-34.0) 08/08/16 04:05 MCHC 34.5 g/dL (33.0-35.0) 08/08/16 04:05 RDW 13.5 % (11.6-16.5) 08/08/16 04:05 Plt Count 134 X10^3/uL (150.0-450.0) L 08/08/16 04:05 MPV 8.5 fL (7.4-11.0) 08/08/16 04:05 Neut % 62.4 % (42.0-75.0) 08/08/16 04:05 Lymph % 26.3 % (21.0-51.0) 08/08/16 04:05 [place] % 7.2 % (0.0-13.0) 08/08/16 04:05 Eos % 3.3 % (0.9-2.9) H 08/08/16 04:05 Baso % 0.8 % (0.2-1.0) 08/08/16 04:05 Neut # 3.5 x10^3/uL (2.2-4.8) 08/08/16 04:05 Lymph # 1.5 X10^3/uL (1.3-2.9) 08/08/16 04:05 [place] # 0.4 x10^3/uL (0.3-0.8) 08/08/16 04:05 Eos # 0.2 x10^3/uL (0.0-0.2) 08/08/16 04:05 Baso # 0.0 X10^3/uL (0.0-0.1) 08/08/16 04:05 Absolute Nucleated RBC 0.1 /100WBC 08/08/16 04:05 Sodium 144 mmol/L (136-145) 08/08/16 04:05 Corrected Sodium TNP 08/08/16 04:05 Potassium 4.4 mmol/L (3.5-5.1) 08/08/16 04:05 Chloride 107 mmol/L (98-107) 08/08/16 04:05 Carbon Dioxide 29.2 mmol/L (21-32) 08/08/16 04:05 BUN 15 mg/dL (7-18) 08/08/16 04:05 Creatinine 0.93 mg/dL (0.70-1.30) 08/08/16 04:05 Est GFR (MDRD) Af Amer > 60 (>60) 08/08/16 04:05 Est GFR (MDRD) Non-Af > 60 (>60) 08/08/16 04:05 Glucose 90 mg/dL (65-99) 08/08/16 04:05 Calcium 9.1 mg/dL (8.5-10.1) 08/08/16 04:05 Corrected Calcium TNP 08/08/16 04:05 Magnesium 2.2 mg/dL (1.7-2.9) 08/03/16 17:15 Total Bilirubin 0.50 mg/dL (0.2-1.0) 08/08/16 04:05 AST 21 Units/L (15-37) 08/08/16 04:05 ALT 22 Units/L (12-78) 08/08/16 04:05 Alkaline Phosphatase 66 Units/L (46-116) 08/08/16 04:05 Total Protein 6.4 g/dL (6.4-8.2) 08/08/16 04:05 Albumin 3.5 g/dL (3.4-5.0) 08/08/16 04:05 Globulin 2.9 g/dL (2.5-4.5) 08/08/16 04:05 Albumin/Globulin Ratio 1.2 Ratio (1.1-2.1) 08/08/16 04:05 - Plan (1) COPD (chronic obstructive pulmonary disease) Status: Chronic Qualifiers: COPD type: COPD with acute exacerbation Chronic bronchitis type: C Emphysema type: E Qualified Code(s): J44.1 - Chronic obstructive pulmonary disease with (acute) exacerbation Plan: COUGH AND WHEEZING IMPROVED. IV ATBX, RESP THERAPY. CXR, EKG ON ADMISSION (2) Hypertensive urgency Status: Inactive Plan: RESUME HOME MEDS, MONITOR. EKG ON ADMISSION (3) Weakness Status: Acute Plan: CHRONIC, PROGRESSIVE DUE TO SEVERE C SPINE AND L SPINE DDD WITH MYELOPATHY , PAIN CONTROL, PT (4) Cervical spine degeneration Status: Chronic Qualifiers: Spinal osteoarthritis complication: S (5) Depression Status: Chronic Qualifiers: Depression Type: D Major depression recurrence: M Active/Remission status : A Major depression episode severity: M Psychotic features: P Trimester: T Plan: RESUME HOME MEDS (6) HTN (hypertension) Status: Chronic Qualifiers: Hypertension type: H (7) Adult failure to thrive syndrome Status: Acute Plan: Case management to contact adult protective services due to homeless, inability to perform ADL's
[2016-08-08] MEDS ORDERED: RESTORIL CAP 15 MG PO PRN (19:45)
[2016-08-09] MEDS ORDERED: NS 1/2 1000 ML IV 1,000 ML IV ONE (05:20)
[2016-08-09] MEDS: NS 1/2 1000 ML IV 1,000 ML IV SCH ×2 (05:49→13:14)
[2016-08-09] MEDS ORDERED: LEXAPRO ONE (08:17)
[2016-08-09] MEDS: LEVAQUIN PREMIX IV 500 MG 500 MG/100 ML BAG IV SCH (08:44)
[2016-08-09] MEDS: ZESTRIL TAB 10 MG PO SCH (08:47)
[2016-08-09] MEDS: NICODERM PATCH 21 MG/24 HR TD SCH (08:48)
[2016-08-09] MEDS: LEXAPRO PO SCH (08:48)
[2016-08-09] MEDS: MOBIC TAB 15 MG PO SCH (08:48)
[2016-08-09] MEDS: ROBITUSSIN DM PO SCH ×2 (08:56→13:15)
[2016-08-09] MEDS: ROCEPHIN VIAL 1 GM 1 GM in NS 50 ML IV + SPIKE MINIBAG* 50 ML IV SCH (08:56)
[2016-08-09] MEDS: CHECK PATCH XX SCH (08:57)
[2016-08-09] MEDS: DUONEB 0.5 MG/3 MG NEB SCH ×2 (09:14→12:17)
[2016-08-09 12:25] VITALS: BP 165/73
== END 2016-08-09 15:25 | disposition home or self-care (01) | DRG 192 ==
LOC: OBS 15:24 → OBSVTOIN 15:24 → MED/SURG 08-04 14:35
PROVIDERS: ADMIT Internal Medicine; ATTEND Internal Medicine
DX: J44.1 Chronic obstructive pulmonary disease with (acute) exacerbation (principal); R06.00 Dyspnea, unspecified; I16.0 Hypertensive urgency; J20.8 Acute bronchitis due to other specified organisms; R53.1 Weakness; F32.89 Other specified depressive episodes; I10 Essential (primary) hypertension; M50.30 Other cervical disc degeneration, unspecified cervical region; M54.2 Cervicalgia; M54.5 Low back pain; M79.602 Pain in left arm; M79.601 Pain in right arm; R62.7 Adult failure to thrive
CPT/HCPCS: 36415; 71020; 71250; 80053; 83735; 85025; 87040; 87070; 87205; 93005; 93010; 94640; 94760; A4222; J0696; J1956; J7620

== ENCOUNTER 2016-08-11 09:06 | Observation (INO) | payer OTHER ==
[2016-08-11 09:11] VITALS: BMI 23.3
[2016-08-11] MEDS ORDERED: DUONEB 0.5 MG/3 MG NEB ONE (09:29)
[2016-08-11] MEDS ORDERED: TORADOL 30 MG VIAL IVP ONE (09:29)
[2016-08-11] MEDS ORDERED: SOLU-Medrol 125 MG VIAL IVP ONE (09:29)
--- NOTE | 2016-08-11 09:31 | DR.GENAD ---
HPI - PCP Primary Care Physician: PARTH Yan - HPI Comment HPI Comment: PATIENT HAVE SEVERE SPINAL STENOSIS AND ARRTHRITIS PRESENTS WITH SEVERE INTRACTABLE PAIN THAT GOT WORSE YESTERDAY. HE IS ATAXIC AND IS FALLING WHEN HE WALKS. INCREASING SOB AND CHEST PAIN. NOT FEELING GOOD. - Complaint/Symptoms Chief Complaint Doctors Comments: LOWER BACK PAIN, LEFT SIDED WEAKNESS, LEFT ARM PAIN AND ATAXIA, FALLING. ALSO SOB AND CHEST PAIN. Chief Complaint:: BACK PAIN FOR SIX MONTHS, PT LEGS AND HIPS ARE HURTING - Nurses notes reviewed Nurses Notes Review: Yes - Source History Provided: Patient - Mode of Arrival Mode of Arrival: EMS - Timing Onset of Chief Complaint: 08/11/16 Came on: Gradually - Duration Duration: Constant Duration: Days - Severity Severity: Moderate PMH - PMH Past Medical History: Yes Past Medical History: Arthritis, COPD Past Medical History Comment: SPINAL STENOSIS Past Surgical History: No Surgical History: No History - Family History History of Family Medical Conditions: Yes Family Medical History: Diabetes Mellitus, [place], Hypertension - Social History Does patient currently use any type of tobacco product: Yes Have you used tobacco products in the last 12 months: Yes Type of Tobacco Use: Cigarettes How many years tobacco product used: 42 Does any household member use tobacco: No Alcohol Use: None Do you use any recreational Drugs:: No Lives Where: Homeless - infectious screening In the last 2 months have you had wt loss of >10#?: NO Have you had fever, night sweats or hemotysis?: No Have you traveled outside the country in the last 6 months?: No Isolation: Standard ROS - Review of Systems Constitutional: Weakness, Fatigue. negative: Chills, Fever Eyes: No Symptoms Reported. negative: Eye Pain, Discharge ENTM: Nose Congestion. negative: Ear Pain, Nose Discharge, Throat Pain Respiratoy: Productive Cough, Short of Breath, Wheezing. negative: Hemoptysis Cardiovascular: Chest Pain. negative: Edema, Palpitations Gastrointestinal/Abdominal: No Symptoms Reported. negative: Constipation, Diarrhea, Nausea, Vomiting Genitourinary: No Symptoms Reported. negative: Dysuria, Frequency, Hematuria Neurological: Headache, Weakness, Dizziness, Problems Walking (ATAXIA) Musculoskeletal: Joint Pain, Muscle Pain Integumentary: negative: Change in Color, Bruises, Juandice Hematologic/Lymphatic: Easy Bruising Endocrine: No Symptoms Reported All Other Systems: Reviewed and Negative PE - Vital Signs Vitals: Temperature 98.1 F Pulse Rate 90 Respiratory Rate 18 Blood Pressure [Left Arm] 153/99 Blood Pressure [Right Arm] 165/73 Blood Pressure 153/99 O2 Sat by Pulse Oximetry 95 - General Limitations: No Limitations General Appearance: Alert - Head Head Exam: Normal Inspection - Eyes Eye exam: Normal Appearance - ENT ENT Exam: Normal External Ear Exam External Ear Exam: Normal External Inspection TM/Canal Exam: Bilateral Normal Nose Exam: Normal Nose Exam Mouth Exam: Normal Inspection Throat Exam: Normal Inspection - Neck Neck Exam: Trachea Midline - Chest Chest Inspection: Symmetric Chest Wall Rise - Respiratory Respiratory Exam: Respiratory Distress Respiratory Exam: Bilateral Wheezing, Bilateral Rhonchi, Upper Wheezing, Upper Rhonchi, Lower Wheezing, Lower Rhonchi - Cardiovascular Cardiovascular Exam: Regular Rate, Normal Rhythm, Normal Heart Sounds - Abdominal Exam Abdominal Exam: Normal Bowel Sounds, Soft. negative: Tenderness - Extremities Extremities Exam: Normal Capillary Refill. negative: Edema, Calf Tenderness - Back Back Exam: Paraspinal Tenderness, Vertebral Tenderness (LUMBER) - Neurologic Neurological Exam: Alert, Oriented X3, Motor Sensory Deficit (LEFT SIDE) - Psychiatric Psychiatric Exam: Anxious - Skin Skin Exam: Normal Color MDM - Differential Diagnosis Differential Diagnosis: SPINAL STENOSIS LUMBER SPINE, LEFT SIDED WEAKNESS, CVA, COPD, CP Course - Treatment Treatment: SEE ORDERS - Consultation Consultation Comments: DISCUSS PATIENT WITH DR. ENGEL. HE WILL ADMIT PATIENT. - Education/Counseling Education/Counseling: Patient, Education Educated On: Treatment, Diagnosis ROR - Labs Reviewed Laboratory Results Reviewed?: Yes Result Diagrams: 08/11/16 09:32 08/11/16 09:32 Laboratory: WBC 5.5 X10^3/uL (3.6-10.0) 08/11/16 09:32 RBC 4.80 X10^6/uL (4.7-6.0) 08/11/16 09:32 Hgb 16.0 g/dL (13.5-18.0) 08/11/16 09:32 Hct 45.5 % (42.0-54.0) 08/11/16 09:32 MCV 94.8 fL (80.0-100.0) 08/11/16 09:32 MCH 33.3 pg (27.0-34.0) 08/11/16 09:32 MCHC 35.1 g/dL (33.0-35.0) H 04/21/17 09:32 RDW 13.3 % (11.6-16.5) 08/11/16 09:32 Plt Count 150 X10^3/uL (150.0-450.0) 08/11/16 09:32 MPV 8.3 fL (7.4-11.0) 08/11/16 09:32 Neut % 67.5 % (42.0-75.0) 08/11/16 09:32 Lymph % 21.0 % (21.0-51.0) 08/11/16 09:32 [place] % 7.8 % (0.0-13.0) 08/11/16 09:32 Eos % 2.7 % (0.9-2.9) 08/11/16 09:32 Baso % 1.0 % (0.2-1.0) 08/11/16 09:32 Neut # 3.7 x10^3/uL (2.2-4.8) 08/11/16 09:32 Lymph # 1.2 X10^3/uL (1.3-2.9) L 08/11/16 09:32 [place] # 0.4 x10^3/uL (0.3-0.8) 08/11/16 09:32 Eos # 0.2 x10^3/uL (0.0-0.2) 08/11/16 09:32 Baso # 0.1 X10^3/uL (0.0-0.1) 08/11/16 09:32 Absolute Nucleated RBC 0.1 /100WBC 08/11/16 09:32 Sodium 142 mmol/L (136-145) 08/11/16 09:32 Corrected Sodium TNP 08/11/16 09:32 Potassium 4.3 mmol/L (3.5-5.1) 08/11/16 09:32 Chloride 105 mmol/L (98-107) 08/11/16 09:32 Carbon Dioxide 27.1 mmol/L (21-32) 08/11/16 09:32 BUN 24 mg/dL (7-18) H 08/11/16 09:32 Creatinine 1.04 mg/dL (0.70-1.30) 08/11/16 09:32 Est GFR (MDRD) Af Amer > 60 (>60) 08/11/16 09:32 Est GFR (MDRD) Non-Af > 60 (>60) 08/11/16 09:32 Glucose 91 mg/dL (65-99) 08/11/16 09:32 Calcium 9.4 mg/dL (8.5-10.1) 08/11/16 09:32 Corrected Calcium TNP 08/11/16 09:32 Total Bilirubin 0.90 mg/dL (0.2-1.0) 08/11/16 09:32 AST 18 Units/L (15-37) 08/11/16 09:32 ALT 10 Units/L (12-78) L 08/11/16 09:32 Alkaline Phosphatase 70 Units/L (46-116) 08/11/16 09:32 Creatine Kinase 103 Units/L (39-308) 08/11/16 21:16 CK-MB (CK-2) 2.9 ng/mL (0-4.0) 08/11/16 21:16 CK/CKMB % Calc 2.8 % (<4) 08/11/16 21:16 Troponin I < 0.02 ng/mL (0-1.5) 08/11/16 21:16 Total Protein 7.0 g/dL (6.4-8.2) 08/11/16 09:32 Albumin 4.0 g/dL (3.4-5.0) 08/11/16 09:32 Globulin 3.0 g/dL (2.5-4.5) 08/11/16 09:32 Albumin/Globulin Ratio 1.3 Ratio (1.1-2.1) 08/11/16 09:32 Specimen Type Clean catch urine 08/11/16 19:25 Urine Color Yellow (YELLOW) 08/11/16 19:25 Urine Appearance Slightly hazy (CLEAR) 08/11/16 19:25 Urine pH 5.0 (5.0 - 8.0) 08/11/16 19:25 Ur Specific [place] 1.025 (1.000-1.030) 08/11/16 19:25 Urine Protein 1+ (NEGATIVE) 08/11/16 19:25 Urine Glucose (UA) Negative (NEGATIVE) 08/11/16 19:25 Urine Ketones Negative (NEGATIVE) 08/11/16 19:25 Urine Occult Blood 3+ (NEGATIVE) 08/11/16 19:25 Urine Nitrite Negative (NEGATIVE) 08/11/16 19:25 Urine Bilirubin Negative (NEGATIVE) 08/11/16 19:25 Urine Urobilinogen Normal (NORMAL) 08/11/16 19:25 Ur Leukocyte Esterase Negative (NEGATIVE) 08/11/16 19:25 Urine RBC 3 - 5 /HPF (NEGATIVE) 08/11/16 19:25 Urine WBC Rare /HPF (NEGATIVE) 08/11/16 19:25 Ur Squamous Epith Cells Few /HPF (NEGATIVE) 08/11/16 19:25 Urine Bacteria Trace /HPF (NEGATIVE) 08/11/16 19:25 Urine Mucus Few /HPF (NEGATIVE) 08/11/16 19:25 Ur Culture Indicated? No/not indicated 08/11/16 19:25 - XRAY XRAY Interpreted by: Radiologist XRAY Findings: REPORT DISCUSS WITH PATIENT. - EKG Rhythm: NSR (EKG NOTED) - Diagnosis Discharge Problem: Intractable pain, COPD exacerbation, Left-sided weakness, Ataxia, Chest pain - Discharge Plan Disposition: 09 ADMITTED INPATIENT Condition: Stable - Follow ups/Referrals - Instructions
[2016-08-11] MEDS ORDERED: SOLU-Medrol 125 MG VIAL ONE (09:32)
[2016-08-11] MEDS ORDERED: TORADOL 30 MG VIAL ONE (09:32)
[2016-08-11] MEDS ORDERED: DUONEB 0.5 MG/3 MG ONE (09:45)
[2016-08-11 10:00] LABS: BASOPHILS # (AUTO) 0.1 X10^3/uL (0.0-0.1); EOSINOPHILS # (AUTO) 0.2 x10^3/uL (0.0-0.2); EOSINOPHILS % (AUTO) 2.7 % (0.9-2.9); HEMATOCRIT 45.5 % (42.0-54.0); LYMPHOCYTES # (AUTO) 1.2 X10^3/uL (1.3-2.9); MEAN CORPUSCULAR HEMOGLOBIN 33.3 pg (27.0-34.0); MEAN CORPUSCULAR HGB CONC 35.1 g/dL (33.0-35.0); MEAN CORPUSCULAR VOLUME 94.8 fL (80.0-100.0); MEAN PLATELET VOLUME 8.3 fL (7.4-11.0); MONOCYTES # (AUTO) 0.4 x10^3/uL (0.3-0.8); MONOCYTES % (AUTO) 7.8 % (0.0-13.0); NEUTROPHILS # (AUTO) 3.7 x10^3/uL (2.2-4.8); NEUTROPHILS % (AUTO) 67.5 % (42.0-75.0); PLATELET COUNT 150 X10^3/uL (150.0-450.0); RED CELL DISTRIBUTION WIDTH 13.3 % (11.6-16.5); WHITE BLOOD COUNT 5.5 X10^3/uL (3.6-10.0)
[2016-08-11 10:05] LABS: BLOOD UREA NITROGEN 24 mg/dL (7-18); CALCIUM 9.4 mg/dL (8.5-10.1); CARBON DIOXIDE 27.1 mmol/L (21-32); CHLORIDE 105 mmol/L (98-107); CREATININE 1.04 mg/dL (0.70-1.30); GLUCOSE 91 mg/dL (65-99); SODIUM 142 mmol/L (136-145); TROPONIN I < 0.02 ng/mL (0-1.5); eGFR BLACK RACES > 60 (>60); eGFR NON BLACK RACES > 60 (>60)
[2016-08-11 10:09] LABS: ALANINE AMINOTRANSFERASE 10 Units/L (12-78); ALKALINE PHOSPHATASE 70 Units/L (46-116); ASPARTATE AMINO TRANSFERASE 18 Units/L (15-37); CKMB % 2.8 % (<4); CREATINE KINASE 138 Units/L (39-308); CREATINE KINASE MB 3.8 ng/mL (0-4.0)
--- NOTE | 2016-08-11 10:32 | CT ---
CT brain without contrast Indication: Left-sided weakness Comparison: 06/19/2016 Technique: Multiple axial images of the brain were obtained from the skull base to the vertex without administr ation of IV contrast. Coronal and sagittal images were also provided. Radiation dose reduction techniques were performed utilizing adjustment for MA/kVP based on patient body size. Findings: No change in right greater the left periventricular and deep white matter hypoattenuation and remote lacunar infarct within the right thalamus. No acute intraparenchymal hemorrhage or mass can be identified. No extra-axial fluid collections ar e seen. No alteration in the attenuation of the brain parenchyma can be identified to suggest acute or subacute ischemic change. The ventricular system is symmetric and nondilated. moderate mucosal thickening of the right maxillary sinus and bilateral anterior ethmoidal air cells. IMPRESSION: 1. No acute intracranial process is identified. 2. Stable chronic findings as described above. Reported By:
--- NOTE | 2016-08-11 10:34 | RAD ---
HISTORY: Chest pain Study: Single view of the chest. Comparison: 08/07/2016 Findings: The cardiomediastinal silhouette is normal. No focal consolidations, pleural effusions or pneumothor ax. Osseous structures demonstrate no acute abnormality. IMPRESSION: 1. No acute cardiopulmonary process. Reported By:
[2016-08-11] MEDS ORDERED: PHENERGAN INJ 25 MG IV PRN (11:50)
[2016-08-11] MEDS ORDERED: DUONEB 0.5 MG/3 MG NEB SCH (13:00)
[2016-08-11] MEDS: MORPHINE SULFATE INJ 4 MG IVP PRN (14:54)
[2016-08-11 16:21] LABS: CKMB % 3.1 % (<4); CREATINE KINASE MB 3.2 ng/mL (0-4.0); TROPONIN I 0.02 ng/mL (0-1.5)
[2016-08-11 19:45] LABS: BILIRUBIN,URINE NEGATIVE (NEGATIVE); BLOOD/HEMOGLOBIN,URINE 3+ (NEGATIVE); GLUCOSE, URINE NEGATIVE (NEGATIVE); KETONES,URINE NEGATIVE (NEGATIVE); LEUKOCYTE ESTERASE ,URINE NEGATIVE (NEGATIVE); NITRITES,URINE NEGATIVE (NEGATIVE); PROTEIN,URINE 1+ (NEGATIVE); UROBILINOGEN,URINE NORMAL (NORMAL)
[2016-08-11 19:55] LABS: APPEARANCE,URINE SLIGHTLY HAZY (CLEAR); COLOR,URINE YELLOW (YELLOW)
[2016-08-11 19:56] LABS: BACTERIA,URINE TRACE /HPF (NEGATIVE); MUCUS,URINE FEW /HPF (NEGATIVE); SQUAMOUS EPITHELIAL CELL,UR FEW /HPF (NEGATIVE)
[2016-08-11] MEDS: DUONEB 0.5 MG/3 MG NEB SCH (20:52)
[2016-08-11 22:05] LABS: CKMB % 2.8 % (<4); CREATINE KINASE 103 Units/L (39-308); CREATINE KINASE MB 2.9 ng/mL (0-4.0); TROPONIN I < 0.02 ng/mL (0-1.5)
[2016-08-12 05:38] LABS: BASOPHILS # (AUTO) 0.1 X10^3/uL (0.0-0.1); BASOPHILS % (AUTO) 0.7 % (0.2-1.0); EOSINOPHILS # (AUTO) 0.1 x10^3/uL (0.0-0.2); EOSINOPHILS % (AUTO) 0.9 % (0.9-2.9); HEMATOCRIT 40.8 % (42.0-54.0); HEMOGLOBIN 13.9 g/dL (13.5-18.0); LYMPHOCYTES # (AUTO) 1.9 X10^3/uL (1.3-2.9); LYMPHOCYTES % (AUTO) 19.1 % (21.0-51.0); MEAN CORPUSCULAR HEMOGLOBIN 32.5 pg (27.0-34.0); MEAN CORPUSCULAR VOLUME 95.6 fL (80.0-100.0); MEAN PLATELET VOLUME 8.4 fL (7.4-11.0); MONOCYTES # (AUTO) 0.7 x10^3/uL (0.3-0.8); MONOCYTES % (AUTO) 6.7 % (0.0-13.0); NEUTROPHILS # (AUTO) 7.2 x10^3/uL (2.2-4.8); NEUTROPHILS % (AUTO) 72.6 % (42.0-75.0); PLATELET COUNT 146 X10^3/uL (150.0-450.0); RED BLOOD COUNT 4.27 X10^6/uL (4.7-6.0); RED CELL DISTRIBUTION WIDTH 13.5 % (11.6-16.5); WHITE BLOOD COUNT 9.9 X10^3/uL (3.6-10.0)
[2016-08-12 06:19] LABS: ALANINE AMINOTRANSFERASE 18 Units/L (12-78); ALBUMIN 3.4 g/dL (3.4-5.0); ALKALINE PHOSPHATASE 66 Units/L (46-116); ASPARTATE AMINO TRANSFERASE 16 Units/L (15-37); BLOOD UREA NITROGEN 28 mg/dL (7-18); CALCIUM 8.8 mg/dL (8.5-10.1); CARBON DIOXIDE 24.7 mmol/L (21-32); CHLORIDE 105 mmol/L (98-107); CREATININE 1.12 mg/dL (0.70-1.30); GLUCOSE 96 mg/dL (65-99); SODIUM 140 mmol/L (136-145); TOTAL PROTEIN 6.1 g/dL (6.4-8.2); eGFR BLACK RACES > 60 (>60); eGFR NON BLACK RACES > 60 (>60)
[2016-08-12] MEDS ORDERED: LEXAPRO ONE (08:13)
[2016-08-12] MEDS: DUONEB 0.5 MG/3 MG NEB SCH ×2 (08:31→20:55)
[2016-08-12] MEDS: SOLU-Medrol 40 MG VIAL IVP SCH ×2 (08:31→17:04)
[2016-08-12] MEDS: ASPIRIN EC 81 MG PO SCH (08:32)
[2016-08-12] MEDS: LEXAPRO PO SCH (08:32)
[2016-08-12] MEDS: MOBIC TAB 15 MG PO SCH (08:32)
[2016-08-12] MEDS: MORPHINE SULFATE INJ 4 MG IVP PRN (08:33)
[2016-08-12] MEDS: ZANAFLEX PO SCH ×2 (15:18→20:07)
[2016-08-12] MEDS: NEURONTIN CAP 300 MG PO SCH ×2 (15:18→22:34)
[2016-08-13] MEDS: SOLU-Medrol 40 MG VIAL IVP SCH ×3 (00:25→16:56)
[2016-08-13 05:10] LABS: BASOPHILS % (AUTO) 0.1 % (0.2-1.0); HEMATOCRIT 39.9 % (42.0-54.0); HEMOGLOBIN 13.7 g/dL (13.5-18.0); LYMPHOCYTES # (AUTO) 0.5 X10^3/uL (1.3-2.9); LYMPHOCYTES % (AUTO) 5.8 % (21.0-51.0); MEAN CORPUSCULAR HGB CONC 34.2 g/dL (33.0-35.0); MEAN CORPUSCULAR VOLUME 96.2 fL (80.0-100.0); MEAN PLATELET VOLUME 8.6 fL (7.4-11.0); MONOCYTES # (AUTO) 0.1 x10^3/uL (0.3-0.8); MONOCYTES % (AUTO) 1.6 % (0.0-13.0); NEUTROPHILS # (AUTO) 7.4 x10^3/uL (2.2-4.8); NEUTROPHILS % (AUTO) 92.5 % (42.0-75.0); PLATELET COUNT 138 X10^3/uL (150.0-450.0); RED BLOOD COUNT 4.15 X10^6/uL (4.7-6.0); RED CELL DISTRIBUTION WIDTH 13.1 % (11.6-16.5); WHITE BLOOD COUNT 8.1 X10^3/uL (3.6-10.0)
[2016-08-13 05:20] LABS: ALANINE AMINOTRANSFERASE 19 Units/L (12-78); ALBUMIN 3.4 g/dL (3.4-5.0); ALKALINE PHOSPHATASE 59 Units/L (46-116); ASPARTATE AMINO TRANSFERASE 15 Units/L (15-37); BLOOD UREA NITROGEN 23 mg/dL (7-18); CALCIUM 8.9 mg/dL (8.5-10.1); CHLORIDE 107 mmol/L (98-107); COR NA(FOR HYPERGLY) 143 mmol/L (136-145); CREATININE 0.98 mg/dL (0.70-1.30); GLUCOSE 136 mg/dL (65-99); SODIUM 142 mmol/L (136-145); eGFR BLACK RACES > 60 (>60); eGFR NON BLACK RACES > 60 (>60)
[2016-08-13] MEDS: NEURONTIN CAP 300 MG PO SCH ×3 (05:32→23:12)
[2016-08-13 05:49] LABS: PLATELET MORPHOLOGY COMMENT NORMAL (NORMAL)
[2016-08-13] MEDS: DUONEB 0.5 MG/3 MG NEB SCH ×2 (08:03→20:25)
[2016-08-13] MEDS ORDERED: LEXAPRO ONE (08:53)
[2016-08-13] MEDS: MOBIC TAB 15 MG PO SCH (09:18)
[2016-08-13] MEDS: ASPIRIN EC 81 MG PO SCH (09:18)
[2016-08-13] MEDS: LEXAPRO PO SCH (09:18)
[2016-08-13] MEDS: TORADOL 30 MG VIAL IVP PRN (09:19)
[2016-08-13] MEDS: ZANAFLEX PO SCH ×2 (09:19→20:41)
[2016-08-13] MEDS: MORPHINE SULFATE INJ 4 MG IVP PRN (14:04)
[2016-08-14] MEDS: SOLU-Medrol 40 MG VIAL IVP SCH ×3 (02:00→18:00)
[2016-08-14 05:13] LABS: BASOPHILS % (AUTO) 0.1 % (0.2-1.0); HEMATOCRIT 36.7 % (42.0-54.0); HEMOGLOBIN 12.8 g/dL (13.5-18.0); LYMPHOCYTES # (AUTO) 0.6 X10^3/uL (1.3-2.9); LYMPHOCYTES % (AUTO) 5.2 % (21.0-51.0); MEAN CORPUSCULAR HEMOGLOBIN 33.1 pg (27.0-34.0); MEAN CORPUSCULAR HGB CONC 34.8 g/dL (33.0-35.0); MEAN PLATELET VOLUME 8.5 fL (7.4-11.0); MONOCYTES # (AUTO) 0.4 x10^3/uL (0.3-0.8); MONOCYTES % (AUTO) 3.9 % (0.0-13.0); NEUTROPHILS # (AUTO) 10.3 x10^3/uL (2.2-4.8); NEUTROPHILS % (AUTO) 90.8 % (42.0-75.0); PLATELET COUNT 142 X10^3/uL (150.0-450.0); RED BLOOD COUNT 3.86 X10^6/uL (4.7-6.0); RED CELL DISTRIBUTION WIDTH 13.3 % (11.6-16.5); WHITE BLOOD COUNT 11.3 X10^3/uL (3.6-10.0)
[2016-08-14 05:17] LABS: ALANINE AMINOTRANSFERASE 19 Units/L (12-78); ALBUMIN 3.2 g/dL (3.4-5.0); ALKALINE PHOSPHATASE 62 Units/L (46-116); ASPARTATE AMINO TRANSFERASE 11 Units/L (15-37); BLOOD UREA NITROGEN 26 mg/dL (7-18); CALCIUM 8.9 mg/dL (8.5-10.1); CARBON DIOXIDE 28.1 mmol/L (21-32); CHLORIDE 107 mmol/L (98-107); COR CA(FOR HYPOALB) 9.5 mg/dL (8.5-10.1); COR NA(FOR HYPERGLY) 143 mmol/L (136-145); CREATININE 0.97 mg/dL (0.70-1.30); GLUCOSE 129 mg/dL (65-99); SODIUM 142 mmol/L (136-145); TOTAL PROTEIN 5.7 g/dL (6.4-8.2); eGFR BLACK RACES > 60 (>60); eGFR NON BLACK RACES > 60 (>60)
[2016-08-14 05:42] LABS: BAND NEUTROPHILS % 3 % (0-10); PLATELET MORPHOLOGY COMMENT NORMAL (NORMAL)
[2016-08-14] MEDS: NEURONTIN CAP 300 MG PO SCH ×3 (05:54→21:01)
[2016-08-14] MEDS: DUONEB 0.5 MG/3 MG NEB SCH ×2 (08:38→20:29)
[2016-08-14] MEDS ORDERED: LEXAPRO ONE (08:57)
[2016-08-14] MEDS: MOBIC TAB 15 MG PO SCH (09:17)
[2016-08-14] MEDS: LEXAPRO PO SCH (09:17)
[2016-08-14] MEDS: ZANAFLEX PO SCH ×2 (09:17→21:01)
[2016-08-14] MEDS: ASPIRIN EC 81 MG PO SCH (09:18)
--- NOTE | 2016-08-14 13:56 | PCM.PROG ---
Progress Note - Progress Note for Day of Date: 08/14/16 - Subjective Subjective: CONFUSION, DEPRESSION AND BILATERAL UPPER EXTREMITY WEAKNESS. PT IS 61 WM ER ADMISSION ON SUNDAY AFTER PRESENTING PER EMS WITH CO SOB AND CP. PT HAS CT HEAD AND SERIAL CE'S, STABLE FOR ACUTE CHANGES. PT IS SUFFERING FROM SEVERE DEPRESSION AND CURRENTLY TAKES LEXAPRO. PLAN TO INCREASE TO 20MG, DISCUSSED MENTAL HEALTH REFERRAL WITH PT. - Past Medical Family Social History Past Med/Fam/Surg Hx: No changes since H&P Allergies: Allergies No Known Drug Allergy Allergy (Verified 06/19/16 10:45) - Review of Systems ROS: No change since H&P - Vital Signs and I&O's Vital Signs: Temperature 97.8 F Pulse Rate [Right Brachial] 65 Pulse Rate [Left Brachial] 60 Pulse Rate 82 Respiratory Rate 18 Blood Pressure [Left Arm] 129/80 Blood Pressure [Right Arm] 176/80 O2 Sat by Pulse Oximetry 95 Intake and Output: Intake & Output 08/12/16 08/13/16 08/14/16 08/15/16 11:59 11:59 11:59 11:59 Intake Total 610 1550 2510 Balance 610 1550 2510 - Physical Exam Oriented: Normal Eyes: Normal Ear: Normal Nose: Normal Throat: Dry Respiratory: Wheezes, Rhonchi Cardiovascular: Normal : Normal Auscultation: Bowel Sounds: Normal Palpation: Normal Tenderness: Normal Skin: Normal Musculoskeletal: Back:Thoracic, Back:Lumbar, Motor Deficit (3/4 HAND STRENGTH BILAT), Sensory Deficit (BILATERAL PARESTHESIAS TO HANDS, ) Psychiatric: Depression Speech Pattern: Clear, Appropriate - Laboratory and Diagnostics Result Diagrams: 08/14/16 04:45 08/14/16 04:45 Labs: Laboratory WBC 11.3 X10^3/uL (3.6-10.0) H 08/14/16 04:45 RBC 3.86 X10^6/uL (4.7-6.0) L 08/14/16 04:45 Hgb 12.8 g/dL (13.5-18.0) L 08/14/16 04:45 Hct 36.7 % (42.0-54.0) L 08/14/16 04:45 MCV 95.0 fL (80.0-100.0) 08/14/16 04:45 MCH 33.1 pg (27.0-34.0) 08/14/16 04:45 MCHC 34.8 g/dL (33.0-35.0) 08/14/16 04:45 RDW 13.3 % (11.6-16.5) 08/14/16 04:45 Plt Count 142 X10^3/uL (150.0-450.0) L 08/14/16 04:45 Plt Count Comment Adequate (ADEQUATE) 08/14/16 04:45 MPV 8.5 fL (7.4-11.0) 08/14/16 04:45 Neut % 90.8 % (42.0-75.0) H 08/14/16 04:45 Lymph % 5.2 % (21.0-51.0) L 08/14/16 04:45 [place] % 3.9 % (0.0-13.0) 08/14/16 04:45 Eos % 0.0 % (0.9-2.9) L 08/14/16 04:45 Baso % 0.1 % (0.2-1.0) L 08/14/16 04:45 Neut # 10.3 x10^3/uL (2.2-4.8) H 08/14/16 04:45 Lymph # 0.6 X10^3/uL (1.3-2.9) L 08/14/16 04:45 [place] # 0.4 x10^3/uL (0.3-0.8) 08/14/16 04:45 Eos # 0.0 x10^3/uL (0.0-0.2) 08/14/16 04:45 Baso # 0.0 X10^3/uL (0.0-0.1) 08/14/16 04:45 Absolute Nucleated RBC 0.0 /100WBC 08/14/16 04:45 Total Counted 100 08/14/16 04:45 Neutrophils % (Manual) 84 % (39-76) H 08/14/16 04:45 Band Neutrophils % 3 % (0-10) 08/14/16 04:45 Lymphocytes % (Manual) 8 % (13-43) L 08/14/16 04:45 Monocytes % (Manual) 4 % (4-9) 08/14/16 04:45 Eosinophils % (Manual) 1 % (0-6) 08/14/16 04:45 Plt Morphology Comment Normal (NORMAL) 08/14/16 04:45 RBC Morphology Normal (NORMAL) 08/14/16 04:45 Sodium 142 mmol/L (136-145) 08/14/16 04:45 Corrected Sodium 143 mmol/L (136-145) 08/14/16 04:45 Potassium 4.5 mmol/L (3.5-5.1) 08/14/16 04:45 Chloride 107 mmol/L (98-107) 08/14/16 04:45 Carbon Dioxide 28.1 mmol/L (21-32) 08/14/16 04:45 BUN 26 mg/dL (7-18) H 08/14/16 04:45 Creatinine 0.97 mg/dL (0.70-1.30) 08/14/16 04:45 Est GFR (MDRD) Af Amer > 60 (>60) 08/14/16 04:45 Est GFR (MDRD) Non-Af > 60 (>60) 08/14/16 04:45 Glucose 129 mg/dL (65-99) H 08/14/16 04:45 Calcium 8.9 mg/dL (8.5-10.1) 08/14/16 04:45 Corrected Calcium 9.5 mg/dL (8.5-10.1) 08/14/16 04:45 Total Bilirubin 0.30 mg/dL (0.2-1.0) 08/14/16 04:45 AST 11 Units/L (15-37) L 08/14/16 04:45 ALT 19 Units/L (12-78) 08/14/16 04:45 Alkaline Phosphatase 62 Units/L (46-116) 08/14/16 04:45 Creatine Kinase 103 Units/L (39-308) 08/11/16 21:16 CK-MB (CK-2) 2.9 ng/mL (0-4.0) 08/11/16 21:16 CK/CKMB % Calc 2.8 % (<4) 08/11/16 21:16 Troponin I < 0.02 ng/mL (0-1.5) 08/11/16 21:16 Total Protein 5.7 g/dL (6.4-8.2) L 08/14/16 04:45 Albumin 3.2 g/dL (3.4-5.0) L 08/14/16 04:45 Globulin 2.5 g/dL (2.5-4.5) 08/14/16 04:45 Albumin/Globulin Ratio 1.3 Ratio (1.1-2.1) 08/14/16 04:45 Specimen Type Clean catch urine 08/11/16 19:25 Urine Color Yellow (YELLOW) 08/11/16 19:25 Urine Appearance Slightly hazy (CLEAR) 08/11/16 19:25 Urine pH 5.0 (5.0 - 8.0) 08/11/16 19:25 Ur Specific [place] 1.025 (1.000-1.030) 08/11/16 19:25 Urine Protein 1+ (NEGATIVE) 08/11/16 19:25 Urine Glucose (UA) Negative (NEGATIVE) 08/11/16 19:25 Urine Ketones Negative (NEGATIVE) 08/11/16 19:25 Urine Occult Blood 3+ (NEGATIVE) 08/11/16 19:25 Urine Nitrite Negative (NEGATIVE) 08/11/16 19:25 Urine Bilirubin Negative (NEGATIVE) 08/11/16 19:25 Urine Urobilinogen Normal (NORMAL) 08/11/16 19:25 Ur Leukocyte Esterase Negative (NEGATIVE) 08/11/16 19:25 Urine RBC 3 - 5 /HPF (NEGATIVE) 08/11/16 19:25 Urine WBC Rare /HPF (NEGATIVE) 08/11/16 19:25 Ur Squamous Epith Cells Few /HPF (NEGATIVE) 08/11/16 19:25 Urine Bacteria Trace /HPF (NEGATIVE) 08/11/16 19:25 Urine Mucus Few /HPF (NEGATIVE) 08/11/16 19:25 Ur Culture Indicated? No/not indicated 08/11/16 19:25 - Plan (1) COPD exacerbation Status: Acute Plan: CONTINUE RESP THERAPY (2) Chest pain Status: Acute Qualifiers: Chest pain type: C Ischemic chest pain type: I Plan: NEGATIVE CARDIAC ENZYMES, CONTINUE BP CONTROL. RESP THERAPY (3) Left-sided weakness Status: Acute Plan: R/T CERVICAL SPINE DDD, PT (4) Adult failure to thrive syndrome Status: Acute (5) Cervical spine degeneration Status: Chronic Qualifiers: Spinal osteoarthritis complication: S (6) Depression Status: Chronic Qualifiers: Depression Type: D Major depression recurrence: M Active/Remission status : A Major depression episode severity: M Psychotic features: P Trimester: T Plan: INCREASE LEXAPRO (7) HTN (hypertension) Status: Chronic Qualifiers: Hypertension type: H
[2016-08-14] MEDS: NORVASC TAB 5 MG PO SCH (15:18)
[2016-08-14] MEDS: TORADOL 30 MG VIAL IVP PRN (15:36)
[2016-08-15] MEDS: SOLU-Medrol 40 MG VIAL IVP SCH ×2 (00:43→09:15)
[2016-08-15] MEDS: NEURONTIN CAP 300 MG PO SCH ×3 (05:43→21:32)
[2016-08-15 05:46] LABS: BASOPHILS % (AUTO) 0.2 % (0.2-1.0); HEMOGLOBIN 13.4 g/dL (13.5-18.0); LYMPHOCYTES # (AUTO) 0.6 X10^3/uL (1.3-2.9); LYMPHOCYTES % (AUTO) 5.4 % (21.0-51.0); MEAN CORPUSCULAR HEMOGLOBIN 33.1 pg (27.0-34.0); MEAN CORPUSCULAR HGB CONC 34.3 g/dL (33.0-35.0); MEAN CORPUSCULAR VOLUME 96.4 fL (80.0-100.0); MONOCYTES # (AUTO) 0.2 x10^3/uL (0.3-0.8); MONOCYTES % (AUTO) 1.6 % (0.0-13.0); NEUTROPHILS # (AUTO) 9.4 x10^3/uL (2.2-4.8); NEUTROPHILS % (AUTO) 92.8 % (42.0-75.0); PLATELET COUNT 143 X10^3/uL (150.0-450.0); RED BLOOD COUNT 4.05 X10^6/uL (4.7-6.0); RED CELL DISTRIBUTION WIDTH 13.4 % (11.6-16.5); WHITE BLOOD COUNT 10.1 X10^3/uL (3.6-10.0)
[2016-08-15 06:09] LABS: ALANINE AMINOTRANSFERASE 22 Units/L (12-78); ALBUMIN 3.3 g/dL (3.4-5.0); ALKALINE PHOSPHATASE 59 Units/L (46-116); ASPARTATE AMINO TRANSFERASE 12 Units/L (15-37); BLOOD UREA NITROGEN 26 mg/dL (7-18); CALCIUM 8.9 mg/dL (8.5-10.1); CARBON DIOXIDE 28.4 mmol/L (21-32); COR CA(FOR HYPOALB) 9.5 mg/dL (8.5-10.1); CREATININE 1.12 mg/dL (0.70-1.30); GLUCOSE 121 mg/dL (65-99); TOTAL PROTEIN 5.9 g/dL (6.4-8.2); eGFR BLACK RACES > 60 (>60); eGFR NON BLACK RACES > 60 (>60)
[2016-08-15 06:11] LABS: PLATELET MORPHOLOGY COMMENT NORMAL (NORMAL)
[2016-08-15 06:18] LABS: CHLORIDE 103 mmol/L (98-107); SODIUM 140 mmol/L (136-145)
[2016-08-15 06:30] LABS: COR NA(FOR HYPERGLY) 141 mmol/L (136-145)
[2016-08-15] MEDS: DUONEB 0.5 MG/3 MG NEB SCH ×2 (08:33→21:24)
[2016-08-15] MEDS ORDERED: LEXAPRO ONE (09:11)
[2016-08-15] MEDS: MOBIC TAB 15 MG PO SCH (09:14)
[2016-08-15] MEDS: ASPIRIN EC 81 MG PO SCH (09:14)
[2016-08-15] MEDS: LEXAPRO PO SCH (09:14)
[2016-08-15] MEDS: ZANAFLEX PO SCH ×2 (09:15→21:32)
[2016-08-15] MEDS: NORVASC TAB 5 MG PO SCH (09:15)
--- NOTE | 2016-08-15 18:42 | PCM.PROG ---
Progress Note - Subjective Subjective: CO DEPRESSION AND BILATERAL UPPER EXTREMITY WEAKNESS. PT IS 61 WM ER ADMISSION ON SUNDAY AFTER PRESENTING PER EMS WITH CO SOB AND CP. PT HAS CT HEAD AND SERIAL CE'S, STABLE FOR ACUTE CHANGES. PT IS SUFFERING FROM SEVERE DEPRESSION AND CURRENTLY TAKES LEXAPRO. PLAN TO INCREASE TO 20MG, DISCUSSED MENTAL HEALTH REFERRAL WITH PT. - Past Medical Family Social History Past Med/Fam/Surg Hx: No changes since H&P Allergies: Allergies No Known Drug Allergy Allergy (Verified 06/19/16 10:45) - Review of Systems ROS: No change since H&P - Vital Signs and I&O's Vital Signs: Temperature 97.9 F Pulse Rate [Right Brachial] 65 Pulse Rate [Left Brachial] 82 Pulse Rate 77 Respiratory Rate 18 Blood Pressure [Left Arm] 120/58 Blood Pressure [Right Arm] 184/86 O2 Sat by Pulse Oximetry 96 Intake and Output: Intake & Output 08/13/16 08/14/16 08/15/16 08/16/16 11:59 11:59 11:59 11:59 Intake Total 1550 2510 2240 800 Balance 1550 2510 2240 800 - Physical Exam Oriented: Normal Eyes: Normal Ear: Normal Nose: Normal Throat: Dry Respiratory: Wheezes, Rhonchi Cardiovascular: Normal : Normal Auscultation: Bowel Sounds: Normal Tenderness: Normal Skin: Normal Musculoskeletal: Back:Thoracic, Back:Lumbar, Motor Deficit (3/4 HAND STRENGTH BILAT), Sensory Deficit (BILATERAL PARESTHESIAS TO HANDS, ) Psychiatric: Depression Speech Pattern: Clear, Appropriate - Laboratory and Diagnostics Result Diagrams: 08/15/16 04:50 08/15/16 04:50 Labs: Laboratory WBC 10.1 X10^3/uL (3.6-10.0) H 08/15/16 04:50 RBC 4.05 X10^6/uL (4.7-6.0) L 08/15/16 04:50 Hgb 13.4 g/dL (13.5-18.0) L 08/15/16 04:50 Hct 39.0 % (42.0-54.0) L 08/15/16 04:50 MCV 96.4 fL (80.0-100.0) 08/15/16 04:50 MCH 33.1 pg (27.0-34.0) 08/15/16 04:50 MCHC 34.3 g/dL (33.0-35.0) 08/15/16 04:50 RDW 13.4 % (11.6-16.5) 08/15/16 04:50 Plt Count 143 X10^3/uL (150.0-450.0) L 08/15/16 04:50 Plt Count Comment Adequate (ADEQUATE) 08/15/16 04:50 MPV 9.0 fL (7.4-11.0) 08/15/16 04:50 Neut % 92.8 % (42.0-75.0) H 08/15/16 04:50 Lymph % 5.4 % (21.0-51.0) L 08/15/16 04:50 [place] % 1.6 % (0.0-13.0) 08/15/16 04:50 Eos % 0.0 % (0.9-2.9) L 08/15/16 04:50 Baso % 0.2 % (0.2-1.0) 08/15/16 04:50 Neut # 9.4 x10^3/uL (2.2-4.8) H 08/15/16 04:50 Lymph # 0.6 X10^3/uL (1.3-2.9) L 08/15/16 04:50 [place] # 0.2 x10^3/uL (0.3-0.8) L 08/15/16 04:50 Eos # 0.0 x10^3/uL (0.0-0.2) 08/15/16 04:50 Baso # 0.0 X10^3/uL (0.0-0.1) 08/15/16 04:50 Absolute Nucleated RBC 0.0 /100WBC 08/15/16 04:50 Total Counted 100 08/15/16 04:50 Neutrophils % (Manual) 95 % (39-76) H 08/15/16 04:50 Band Neutrophils % 3 % (0-10) 08/14/16 04:45 Lymphocytes % (Manual) 3 % (13-43) L 08/15/16 04:50 Monocytes % (Manual) 2 % (4-9) L 08/15/16 04:50 Eosinophils % (Manual) 1 % (0-6) 08/14/16 04:45 Plt Morphology Comment Normal (NORMAL) 08/15/16 04:50 RBC Morphology Normal (NORMAL) 08/15/16 04:50 Sodium 140 mmol/L (136-145) 08/15/16 04:50 Corrected Sodium 141 mmol/L (136-145) 08/15/16 04:50 Potassium 4.4 mmol/L (3.5-5.1) 08/15/16 04:50 Chloride 103 mmol/L (98-107) 08/15/16 04:50 Carbon Dioxide 28.4 mmol/L (21-32) 08/15/16 04:50 BUN 26 mg/dL (7-18) H 08/15/16 04:50 Creatinine 1.12 mg/dL (0.70-1.30) 08/15/16 04:50 Est GFR (MDRD) Af Amer > 60 (>60) 08/15/16 04:50 Est GFR (MDRD) Non-Af > 60 (>60) 08/15/16 04:50 Glucose 121 mg/dL (65-99) H 08/15/16 04:50 Calcium 8.9 mg/dL (8.5-10.1) 08/15/16 04:50 Corrected Calcium 9.5 mg/dL (8.5-10.1) 08/15/16 04:50 Total Bilirubin 0.30 mg/dL (0.2-1.0) 08/15/16 04:50 AST 12 Units/L (15-37) L 08/15/16 04:50 ALT 22 Units/L (12-78) 08/15/16 04:50 Alkaline Phosphatase 59 Units/L (46-116) 08/15/16 04:50 Creatine Kinase 103 Units/L (39-308) 08/11/16 21:16 CK-MB (CK-2) 2.9 ng/mL (0-4.0) 08/11/16 21:16 CK/CKMB % Calc 2.8 % (<4) 08/11/16 21:16 Troponin I < 0.02 ng/mL (0-1.5) 08/11/16 21:16 Total Protein 5.9 g/dL (6.4-8.2) L 08/15/16 04:50 Albumin 3.3 g/dL (3.4-5.0) L 08/15/16 04:50 Globulin 2.6 g/dL (2.5-4.5) 08/15/16 04:50 Albumin/Globulin Ratio 1.3 Ratio (1.1-2.1) 08/15/16 04:50 Specimen Type Clean catch urine 08/11/16 19:25 Urine Color Yellow (YELLOW) 08/11/16 19:25 Urine Appearance Slightly hazy (CLEAR) 08/11/16 19:25 Urine pH 5.0 (5.0 - 8.0) 08/11/16 19:25 Ur Specific [place] 1.025 (1.000-1.030) 08/11/16 19:25 Urine Protein 1+ (NEGATIVE) 08/11/16 19:25 Urine Glucose (UA) Negative (NEGATIVE) 08/11/16 19:25 Urine Ketones Negative (NEGATIVE) 08/11/16 19:25 Urine Occult Blood 3+ (NEGATIVE) 08/11/16 19:25 Urine Nitrite Negative (NEGATIVE) 08/11/16 19:25 Urine Bilirubin Negative (NEGATIVE) 08/11/16 19:25 Urine Urobilinogen Normal (NORMAL) 08/11/16 19:25 Ur Leukocyte Esterase Negative (NEGATIVE) 08/11/16 19:25 Urine RBC 3 - 5 /HPF (NEGATIVE) 08/11/16 19:25 Urine WBC Rare /HPF (NEGATIVE) 08/11/16 19:25 Ur Squamous Epith Cells Few /HPF (NEGATIVE) 08/11/16 19:25 Urine Bacteria Trace /HPF (NEGATIVE) 08/11/16 19:25 Urine Mucus Few /HPF (NEGATIVE) 08/11/16 19:25 Ur Culture Indicated? No/not indicated 08/11/16 19:25 - Plan (1) COPD exacerbation Status: Acute Plan: CONTINUE RESP THERAPY (2) Chest pain Status: Acute Qualifiers: Chest pain type: C Ischemic chest pain type: I Plan: NEGATIVE CARDIAC ENZYMES, CONTINUE BP CONTROL. RESP THERAPY (3) Left-sided weakness Status: Acute Plan: R/T CERVICAL SPINE DDD, PT (4) Adult failure to thrive syndrome Status: Acute Plan: UNABLE TO PERFORM ADLS, FOOD PREPARATION, ASSITANCE WITH GROOMING AND DRESSING. CASE MANAGEMENT WORKING ON HOUSING FOR PT (5) Cervical spine degeneration Status: Chronic Qualifiers: Spinal osteoarthritis complication: S (6) Depression Status: Chronic Qualifiers: Depression Type: D Major depression recurrence: M Active/Remission status : A Major depression episode severity: M Psychotic features: P Trimester: T Plan: INCREASE LEXAPRO (7) HTN (hypertension) Status: Chronic Qualifiers: Hypertension type: H
[2016-08-15] MEDS: TORADOL 30 MG VIAL IVP PRN (19:05)
[2016-08-16] MEDS: TORADOL 30 MG VIAL IVP PRN ×2 (06:09→16:08)
[2016-08-16] MEDS: NEURONTIN CAP 300 MG PO SCH ×3 (06:09→21:18)
[2016-08-16 06:18] LABS: BASOPHILS % (AUTO) 0.3 % (0.2-1.0); EOSINOPHILS % (AUTO) 0.2 % (0.9-2.9); HEMATOCRIT 38.3 % (42.0-54.0); HEMOGLOBIN 13.4 g/dL (13.5-18.0); LYMPHOCYTES % (AUTO) 27.2 % (21.0-51.0); MEAN CORPUSCULAR HEMOGLOBIN 33.3 pg (27.0-34.0); MEAN CORPUSCULAR HGB CONC 34.9 g/dL (33.0-35.0); MEAN CORPUSCULAR VOLUME 95.5 fL (80.0-100.0); MEAN PLATELET VOLUME 8.7 fL (7.4-11.0); MONOCYTES # (AUTO) 0.6 x10^3/uL (0.3-0.8); MONOCYTES % (AUTO) 7.6 % (0.0-13.0); NEUTROPHILS # (AUTO) 4.8 x10^3/uL (2.2-4.8); NEUTROPHILS % (AUTO) 64.7 % (42.0-75.0); PLATELET COUNT 127 X10^3/uL (150.0-450.0); RED BLOOD COUNT 4.01 X10^6/uL (4.7-6.0); RED CELL DISTRIBUTION WIDTH 13.4 % (11.6-16.5); WHITE BLOOD COUNT 7.5 X10^3/uL (3.6-10.0)
[2016-08-16 06:30] LABS: ALANINE AMINOTRANSFERASE 34 Units/L (12-78); ALKALINE PHOSPHATASE 53 Units/L (46-116); ASPARTATE AMINO TRANSFERASE 13 Units/L (15-37); BLOOD UREA NITROGEN 29 mg/dL (7-18); CALCIUM 8.2 mg/dL (8.5-10.1); CARBON DIOXIDE 28.9 mmol/L (21-32); CHLORIDE 109 mmol/L (98-107); CREATININE 0.96 mg/dL (0.70-1.30); GLUCOSE 81 mg/dL (65-99); SODIUM 144 mmol/L (136-145); TOTAL PROTEIN 5.3 g/dL (6.4-8.2); eGFR BLACK RACES > 60 (>60); eGFR NON BLACK RACES > 60 (>60)
[2016-08-16] MEDS ORDERED: LEXAPRO ONE (08:54)
[2016-08-16] MEDS: DUONEB 0.5 MG/3 MG NEB SCH ×2 (09:11→20:07)
[2016-08-16] MEDS: LEXAPRO PO SCH (09:16)
[2016-08-16] MEDS: NORVASC TAB 5 MG PO SCH (09:16)
[2016-08-16] MEDS: ASPIRIN EC 81 MG PO SCH (09:16)
[2016-08-16] MEDS: MOBIC TAB 15 MG PO SCH (09:16)
[2016-08-16] MEDS: ZANAFLEX PO SCH ×2 (09:17→21:19)
--- NOTE | 2016-08-16 18:09 | PCM.PROG ---
Progress Note - Progress Note for Day of Date: 08/16/16 - Subjective Subjective: CO DEPRESSION AND BILATERAL UPPER EXTREMITY WEAKNESS. PT SAY COMMENTS TO STAFF TODAY "I JUST WANT TO END IT ALL" "I DONT THINK I CAN LIVE LIKE THIS" CRYING TO STAFF. PT IS 61 WM ER ADMISSION ON SUNDAY AFTER PRESENTING PER EMS WITH CO SOB AND CP. PT HAS CT HEAD AND SERIAL CE'S, STABLE FOR ACUTE CHANGES. PT IS SUFFERING FROM SEVERE DEPRESSION AND CURRENTLY TAKES LEXAPRO, WHICH WE DOSE INCREASED SINCE ADMISSION. DISCUSSED MENTAL HEALTH REFERRAL WITH PT. - Past Medical Family Social History Past Med/Fam/Surg Hx: No changes since H&P Allergies: Allergies No Known Drug Allergy Allergy (Verified 06/19/16 10:45) - Review of Systems ROS: No change since H&P - Vital Signs and I&O's Vital Signs: Temperature 97.4 F Pulse Rate [Right Brachial] 77 Pulse Rate [Left Brachial] 82 Pulse Rate 63 Respiratory Rate 18 Blood Pressure [Left Arm] 114/65 Blood Pressure [Right Arm] 150/94 O2 Sat by Pulse Oximetry 93 Intake and Output: Intake & Output 08/14/16 08/15/16 08/16/16 08/17/16 11:59 11:59 11:59 11:59 Intake Total 2510 2240 1610 650 Balance 2510 2240 1610 650 - Physical Exam Oriented: Normal Eyes: Normal Ear: Normal Nose: Normal Throat: Dry Respiratory: Wheezes, Rhonchi Cardiovascular: Normal : Normal Auscultation: Bowel Sounds: Normal Tenderness: Normal Skin: Normal Musculoskeletal: Back:Thoracic, Back:Lumbar, Motor Deficit (3/4 HAND STRENGTH BILAT), Sensory Deficit (BILATERAL PARESTHESIAS TO HANDS, ) Psychiatric: Depression Mood Description: Sad Speech Pattern: Clear, Appropriate - Laboratory and Diagnostics Result Diagrams: 08/16/16 05:45 08/16/16 05:45 Labs: Laboratory WBC 7.5 X10^3/uL (3.6-10.0) 08/16/16 05:45 RBC 4.01 X10^6/uL (4.7-6.0) L 08/16/16 05:45 Hgb 13.4 g/dL (13.5-18.0) L 08/16/16 05:45 Hct 38.3 % (42.0-54.0) L 08/16/16 05:45 MCV 95.5 fL (80.0-100.0) 08/16/16 05:45 MCH 33.3 pg (27.0-34.0) 08/16/16 05:45 MCHC 34.9 g/dL (33.0-35.0) 08/16/16 05:45 RDW 13.4 % (11.6-16.5) 08/16/16 05:45 Plt Count 127 X10^3/uL (150.0-450.0) L 08/16/16 05:45 Plt Count Comment Adequate (ADEQUATE) 08/15/16 04:50 MPV 8.7 fL (7.4-11.0) 08/16/16 05:45 Neut % 64.7 % (42.0-75.0) 08/16/16 05:45 Lymph % 27.2 % (21.0-51.0) 08/16/16 05:45 [place] % 7.6 % (0.0-13.0) 08/16/16 05:45 Eos % 0.2 % (0.9-2.9) L 08/16/16 05:45 Baso % 0.3 % (0.2-1.0) 08/16/16 05:45 Neut # 4.8 x10^3/uL (2.2-4.8) 08/16/16 05:45 Lymph # 2.0 X10^3/uL (1.3-2.9) 08/16/16 05:45 [place] # 0.6 x10^3/uL (0.3-0.8) 08/16/16 05:45 Eos # 0.0 x10^3/uL (0.0-0.2) 08/16/16 05:45 Baso # 0.0 X10^3/uL (0.0-0.1) 08/16/16 05:45 Absolute Nucleated RBC 0.0 /100WBC 08/16/16 05:45 Total Counted 100 08/15/16 04:50 Neutrophils % (Manual) 95 % (39-76) H 08/15/16 04:50 Band Neutrophils % 3 % (0-10) 08/14/16 04:45 Lymphocytes % (Manual) 3 % (13-43) L 08/15/16 04:50 Monocytes % (Manual) 2 % (4-9) L 08/15/16 04:50 Eosinophils % (Manual) 1 % (0-6) 08/14/16 04:45 Plt Morphology Comment Normal (NORMAL) 08/15/16 04:50 RBC Morphology Normal (NORMAL) 08/15/16 04:50 Sodium 144 mmol/L (136-145) 08/16/16 05:45 Corrected Sodium TNP 08/16/16 05:45 Potassium 3.9 mmol/L (3.5-5.1) 08/16/16 05:45 Chloride 109 mmol/L (98-107) H 08/16/16 05:45 Carbon Dioxide 28.9 mmol/L (21-32) 08/16/16 05:45 BUN 29 mg/dL (7-18) H 08/16/16 05:45 Creatinine 0.96 mg/dL (0.70-1.30) 08/16/16 05:45 Est GFR (MDRD) Af Amer > 60 (>60) 08/16/16 05:45 Est GFR (MDRD) Non-Af > 60 (>60) 08/16/16 05:45 Glucose 81 mg/dL (65-99) 08/16/16 05:45 Calcium 8.2 mg/dL (8.5-10.1) L 08/16/16 05:45 Corrected Calcium 9.0 mg/dL (8.5-10.1) 08/16/16 05:45 Total Bilirubin 0.40 mg/dL (0.2-1.0) 08/16/16 05:45 AST 13 Units/L (15-37) L 08/16/16 05:45 ALT 34 Units/L (12-78) 08/16/16 05:45 Alkaline Phosphatase 53 Units/L (46-116) 08/16/16 05:45 Creatine Kinase 103 Units/L (39-308) 08/11/16 21:16 CK-MB (CK-2) 2.9 ng/mL (0-4.0) 08/11/16 21:16 CK/CKMB % Calc 2.8 % (<4) 08/11/16 21:16 Troponin I < 0.02 ng/mL (0-1.5) 08/11/16 21:16 Total Protein 5.3 g/dL (6.4-8.2) L 08/16/16 05:45 Albumin 3.0 g/dL (3.4-5.0) L 08/16/16 05:45 Globulin 2.3 g/dL (2.5-4.5) L 08/16/16 05:45 Albumin/Globulin Ratio 1.3 Ratio (1.1-2.1) 08/16/16 05:45 Specimen Type Clean catch urine 08/11/16 19:25 Urine Color Yellow (YELLOW) 08/11/16 19:25 Urine Appearance Slightly hazy (CLEAR) 08/11/16 19:25 Urine pH 5.0 (5.0 - 8.0) 08/11/16 19:25 Ur Specific [place] 1.025 (1.000-1.030) 08/11/16 19:25 Urine Protein 1+ (NEGATIVE) 08/11/16 19:25 Urine Glucose (UA) Negative (NEGATIVE) 08/11/16 19:25 Urine Ketones Negative (NEGATIVE) 08/11/16 19:25 Urine Occult Blood 3+ (NEGATIVE) 08/11/16 19:25 Urine Nitrite Negative (NEGATIVE) 08/11/16 19:25 Urine Bilirubin Negative (NEGATIVE) 08/11/16 19:25 Urine Urobilinogen Normal (NORMAL) 08/11/16 19:25 Ur Leukocyte Esterase Negative (NEGATIVE) 08/11/16 19:25 Urine RBC 3 - 5 /HPF (NEGATIVE) 08/11/16 19:25 Urine WBC Rare /HPF (NEGATIVE) 08/11/16 19:25 Ur Squamous Epith Cells Few /HPF (NEGATIVE) 08/11/16 19:25 Urine Bacteria Trace /HPF (NEGATIVE) 08/11/16 19:25 Urine Mucus Few /HPF (NEGATIVE) 08/11/16 19:25 Ur Culture Indicated? No/not indicated 08/11/16 19:25 - Plan (1) COPD exacerbation Status: Acute Plan: CONTINUE RESP THERAPY (2) Chest pain Status: Acute Qualifiers: Chest pain type: C Ischemic chest pain type: I Plan: NEGATIVE CARDIAC ENZYMES, CONTINUE BP CONTROL. RESP THERAPY (3) Left-sided weakness Status: Acute Plan: R/T CERVICAL SPINE DDD, PT (4) Adult failure to thrive syndrome Status: Acute Plan: UNABLE TO PERFORM ADLS, FOOD PREPARATION, ASSITANCE WITH GROOMING AND DRESSING. CASE MANAGEMENT WORKING ON HOUSING FOR PT (5) Cervical spine degeneration Status: Chronic Qualifiers: Spinal osteoarthritis complication: S (6) Depression Status: Chronic Qualifiers: Depression Type: D Major depression recurrence: M Active/Remission status : A Major depression episode severity: M Psychotic features: P Trimester: T Plan: CONTINUE LEXAPRO, INCREASE NEGATIVE COMMENTS, THREATS TO "END IT ALL". CONSULT MENTAL HEALTH, DISCUSSED PLACEMENT WITH BEHAVIOR UNIT, PT IS AGREEABLE TO MENTAL HEALTH EVALUATION. (7) HTN (hypertension) Status: Chronic Qualifiers: Hypertension type: H
[2016-08-17] MEDS: NEURONTIN CAP 300 MG PO SCH ×3 (05:50→21:11)
[2016-08-17] MEDS ORDERED: LEXAPRO ONE (09:05)
[2016-08-17] MEDS: ASPIRIN EC 81 MG PO SCH (09:08)
[2016-08-17] MEDS: MOBIC TAB 15 MG PO SCH (09:08)
[2016-08-17] MEDS: NORVASC TAB 5 MG PO SCH (09:08)
[2016-08-17] MEDS: ZANAFLEX PO SCH ×2 (09:08→21:11)
[2016-08-17] MEDS: LEXAPRO PO SCH (09:08)
[2016-08-17] MEDS: DUONEB 0.5 MG/3 MG NEB SCH ×2 (09:34→20:59)
--- NOTE | 2016-08-17 16:05 | PCM.PROG ---
Progress Note - Progress Note for Day of Date: 08/17/16 - Subjective Subjective: PT MORE CALM TODAY, STATES HE WAS VERY UPSET DO TO ARGUMENT WITH FAMILY MEMBER. PT STATES UPPER EXTREMITY WEAKNESS WORSE. PT IS 61 WM ER ADMISSION ON SUNDAY AFTER PRESENTING PER EMS WITH CO SOB AND CP. PT HAS CT HEAD AND SERIAL CE'S, STABLE FOR ACUTE CHANGES. PT IS SUFFERING FROM SEVERE DEPRESSION AND CURRENTLY TAKES LEXAPRO, WHICH WE DOSE INCREASED SINCE ADMISSION. DISCUSSED MENTAL HEALTH REFERRAL WITH PT. - Past Medical Family Social History Past Med/Fam/Surg Hx: No changes since H&P Allergies: Allergies No Known Drug Allergy Allergy (Verified 06/19/16 10:45) - Review of Systems ROS: No change since H&P - Vital Signs and I&O's Vital Signs: Temperature 98 F Pulse Rate [Right Brachial] 64 Pulse Rate [Left Brachial] 75 Pulse Rate 98 Respiratory Rate 20 Blood Pressure [Left Arm] 123/77 Blood Pressure [Right Arm] 170/90 O2 Sat by Pulse Oximetry 92 Intake and Output: Intake & Output 08/15/16 08/16/16 08/17/16 08/18/16 11:59 11:59 11:59 11:59 Intake Total 2240 3179 894 4803 Balance 2240 6857 009 1102 - Physical Exam Oriented: Normal Eyes: Normal Ear: Normal Nose: Normal Throat: Dry Respiratory: Wheezes, Rhonchi Cardiovascular: Normal : Normal Auscultation: Bowel Sounds: Normal Tenderness: Normal Skin: Normal Musculoskeletal: Back:Thoracic, Back:Lumbar, Motor Deficit (3/4 HAND STRENGTH BILAT), Sensory Deficit (BILATERAL PARESTHESIAS TO HANDS, ) Psychiatric: Depression Mood Description: Sad Speech Pattern: Clear, Appropriate - Laboratory and Diagnostics Result Diagrams: 08/16/16 05:45 08/16/16 05:45 Labs: Laboratory WBC 7.5 X10^3/uL (3.6-10.0) 08/16/16 05:45 RBC 4.01 X10^6/uL (4.7-6.0) L 08/16/16 05:45 Hgb 13.4 g/dL (13.5-18.0) L 08/16/16 05:45 Hct 38.3 % (42.0-54.0) L 08/16/16 05:45 MCV 95.5 fL (80.0-100.0) 08/16/16 05:45 MCH 33.3 pg (27.0-34.0) 08/16/16 05:45 MCHC 34.9 g/dL (33.0-35.0) 08/16/16 05:45 RDW 13.4 % (11.6-16.5) 08/16/16 05:45 Plt Count 127 X10^3/uL (150.0-450.0) L 08/16/16 05:45 Plt Count Comment Adequate (ADEQUATE) 08/15/16 04:50 MPV 8.7 fL (7.4-11.0) 08/16/16 05:45 Neut % 64.7 % (42.0-75.0) 08/16/16 05:45 Lymph % 27.2 % (21.0-51.0) 08/16/16 05:45 [place] % 7.6 % (0.0-13.0) 08/16/16 05:45 Eos % 0.2 % (0.9-2.9) L 08/16/16 05:45 Baso % 0.3 % (0.2-1.0) 08/16/16 05:45 Neut # 4.8 x10^3/uL (2.2-4.8) 08/16/16 05:45 Lymph # 2.0 X10^3/uL (1.3-2.9) 08/16/16 05:45 [place] # 0.6 x10^3/uL (0.3-0.8) 08/16/16 05:45 Eos # 0.0 x10^3/uL (0.0-0.2) 08/16/16 05:45 Baso # 0.0 X10^3/uL (0.0-0.1) 08/16/16 05:45 Absolute Nucleated RBC 0.0 /100WBC 08/16/16 05:45 Total Counted 100 08/15/16 04:50 Neutrophils % (Manual) 95 % (39-76) H 08/15/16 04:50 Band Neutrophils % 3 % (0-10) 08/14/16 04:45 Lymphocytes % (Manual) 3 % (13-43) L 08/15/16 04:50 Monocytes % (Manual) 2 % (4-9) L 08/15/16 04:50 Eosinophils % (Manual) 1 % (0-6) 08/14/16 04:45 Plt Morphology Comment Normal (NORMAL) 08/15/16 04:50 RBC Morphology Normal (NORMAL) 08/15/16 04:50 Sodium 144 mmol/L (136-145) 08/16/16 05:45 Corrected Sodium TNP 08/16/16 05:45 Potassium 3.9 mmol/L (3.5-5.1) 08/16/16 05:45 Chloride 109 mmol/L (98-107) H 08/16/16 05:45 Carbon Dioxide 28.9 mmol/L (21-32) 08/16/16 05:45 BUN 29 mg/dL (7-18) H 08/16/16 05:45 Creatinine 0.96 mg/dL (0.70-1.30) 08/16/16 05:45 Est GFR (MDRD) Af Amer > 60 (>60) 08/16/16 05:45 Est GFR (MDRD) Non-Af > 60 (>60) 08/16/16 05:45 Glucose 81 mg/dL (65-99) 08/16/16 05:45 Calcium 8.2 mg/dL (8.5-10.1) L 08/16/16 05:45 Corrected Calcium 9.0 mg/dL (8.5-10.1) 08/16/16 05:45 Total Bilirubin 0.40 mg/dL (0.2-1.0) 08/16/16 05:45 AST 13 Units/L (15-37) L 08/16/16 05:45 ALT 34 Units/L (12-78) 08/16/16 05:45 Alkaline Phosphatase 53 Units/L (46-116) 08/16/16 05:45 Creatine Kinase 103 Units/L (39-308) 08/11/16 21:16 CK-MB (CK-2) 2.9 ng/mL (0-4.0) 08/11/16 21:16 CK/CKMB % Calc 2.8 % (<4) 08/11/16 21:16 Troponin I < 0.02 ng/mL (0-1.5) 08/11/16 21:16 Total Protein 5.3 g/dL (6.4-8.2) L 08/16/16 05:45 Albumin 3.0 g/dL (3.4-5.0) L 08/16/16 05:45 Globulin 2.3 g/dL (2.5-4.5) L 08/16/16 05:45 Albumin/Globulin Ratio 1.3 Ratio (1.1-2.1) 08/16/16 05:45 Specimen Type Clean catch urine 08/11/16 19:25 Urine Color Yellow (YELLOW) 08/11/16 19:25 Urine Appearance Slightly hazy (CLEAR) 08/11/16 19:25 Urine pH 5.0 (5.0 - 8.0) 08/11/16 19:25 Ur Specific [place] 1.025 (1.000-1.030) 08/11/16 19:25 Urine Protein 1+ (NEGATIVE) 08/11/16 19:25 Urine Glucose (UA) Negative (NEGATIVE) 08/11/16 19:25 Urine Ketones Negative (NEGATIVE) 08/11/16 19:25 Urine Occult Blood 3+ (NEGATIVE) 08/11/16 19:25 Urine Nitrite Negative (NEGATIVE) 08/11/16 19:25 Urine Bilirubin Negative (NEGATIVE) 08/11/16 19:25 Urine Urobilinogen Normal (NORMAL) 08/11/16 19:25 Ur Leukocyte Esterase Negative (NEGATIVE) 08/11/16 19:25 Urine RBC 3 - 5 /HPF (NEGATIVE) 08/11/16 19:25 Urine WBC Rare /HPF (NEGATIVE) 08/11/16 19:25 Ur Squamous Epith Cells Few /HPF (NEGATIVE) 08/11/16 19:25 Urine Bacteria Trace /HPF (NEGATIVE) 08/11/16 19:25 Urine Mucus Few /HPF (NEGATIVE) 08/11/16 19:25 Ur Culture Indicated? No/not indicated 08/11/16 19:25 - Plan (1) COPD exacerbation Status: Acute Plan: CONTINUE RESP THERAPY (2) Chest pain Status: Acute Qualifiers: Chest pain type: C Ischemic chest pain type: I Plan: NEGATIVE CARDIAC ENZYMES, CONTINUE BP CONTROL. RESP THERAPY (3) Left-sided weakness Status: Acute Plan: R/T CERVICAL SPINE DDD, PT (4) Adult failure to thrive syndrome Status: Acute Plan: UNABLE TO PERFORM ADLS, FOOD PREPARATION, ASSITANCE WITH GROOMING AND DRESSING. CASE MANAGEMENT WORKING ON HOUSING FOR PT (5) Cervical spine degeneration Status: Chronic Qualifiers: Spinal osteoarthritis complication: S (6) Depression Status: Chronic Qualifiers: Depression Type: D Major depression recurrence: M Active/Remission status : A Major depression episode severity: M Psychotic features: P Trimester: T Plan: CONTINUE LEXAPRO. CONSULT MENTAL HEALTH, DISCUSSED PLACEMENT WITH BEHAVIOR UNIT, PT IS AGREEABLE TO MENTAL HEALTH EVALUATION. (7) HTN (hypertension) Status: Chronic Qualifiers: Hypertension type: H
[2016-08-17] MEDS: TORADOL 30 MG VIAL IVP PRN (19:54)
[2016-08-18] MEDS: NEURONTIN CAP 300 MG PO SCH ×3 (05:31→21:00)
[2016-08-18] MEDS ORDERED: LEXAPRO ONE (07:38)
[2016-08-18] MEDS: MOBIC TAB 15 MG PO SCH (08:36)
[2016-08-18] MEDS: ZANAFLEX PO SCH ×2 (08:36→21:00)
[2016-08-18] MEDS: LEXAPRO PO SCH (08:36)
[2016-08-18] MEDS: ASPIRIN EC 81 MG PO SCH (08:36)
[2016-08-18] MEDS: NORVASC TAB 5 MG PO SCH (08:37)
[2016-08-18] MEDS: DUONEB 0.5 MG/3 MG NEB SCH ×2 (09:05→20:30)
--- NOTE | 2016-08-18 15:46 | PCM.PROG ---
Progress Note - Progress Note for Day of Date: 08/18/16 - Subjective Subjective: PT MORE CALM TODAY, PT ACCEPTED AT [facility], BED PENDING. PT IS 61 WM ER ADMISSION ON SUNDAY AFTER PRESENTING PER EMS WITH CO SOB AND CP. PT HAS CT HEAD AND SERIAL CE'S, STABLE FOR ACUTE CHANGES. PT IS SUFFERING FROM SEVERE DEPRESSION AND CURRENTLY TAKES LEXAPRO, WHICH WE DOSE INCREASED SINCE ADMISSION. DISCUSSED MENTAL HEALTH REFERRAL WITH PT. - Past Medical Family Social History Past Med/Fam/Surg Hx: No changes since H&P Allergies: Allergies No Known Drug Allergy Allergy (Verified 06/19/16 10:45) - Review of Systems ROS: No change since H&P - Vital Signs and I&O's Vital Signs: Temperature 97.6 F Pulse Rate [Right Brachial] 71 Pulse Rate [Left Brachial] 83 Pulse Rate 78 Respiratory Rate 20 Blood Pressure [Left Arm] 124/74 Blood Pressure [Right Arm] 170/90 O2 Sat by Pulse Oximetry 96 Intake and Output: Intake & Output 08/16/16 08/17/16 08/18/16 08/19/16 11:59 11:59 11:59 11:59 Intake Total 6906 178 9724 1660 Balance 9087 779 9487 1660 - Physical Exam Oriented: Normal Eyes: Normal Ear: Normal Nose: Normal Throat: Dry Respiratory: Wheezes, Rhonchi Cardiovascular: Normal : Normal Auscultation: Bowel Sounds: Normal Tenderness: Normal Skin: Normal Musculoskeletal: Back:Thoracic, Back:Lumbar, Motor Deficit (3/4 HAND STRENGTH BILAT), Sensory Deficit (BILATERAL PARESTHESIAS TO HANDS, ) Psychiatric: Depression Mood Description: Sad Speech Pattern: Clear - Laboratory and Diagnostics Result Diagrams: 08/16/16 05:45 08/16/16 05:45 Labs: Laboratory WBC 7.5 X10^3/uL (3.6-10.0) 08/16/16 05:45 RBC 4.01 X10^6/uL (4.7-6.0) L 08/16/16 05:45 Hgb 13.4 g/dL (13.5-18.0) L 08/16/16 05:45 Hct 38.3 % (42.0-54.0) L 08/16/16 05:45 MCV 95.5 fL (80.0-100.0) 08/16/16 05:45 MCH 33.3 pg (27.0-34.0) 08/16/16 05:45 MCHC 34.9 g/dL (33.0-35.0) 08/16/16 05:45 RDW 13.4 % (11.6-16.5) 08/16/16 05:45 Plt Count 127 X10^3/uL (150.0-450.0) L 08/16/16 05:45 Plt Count Comment Adequate (ADEQUATE) 08/15/16 04:50 MPV 8.7 fL (7.4-11.0) 08/16/16 05:45 Neut % 64.7 % (42.0-75.0) 08/16/16 05:45 Lymph % 27.2 % (21.0-51.0) 08/16/16 05:45 [place] % 7.6 % (0.0-13.0) 08/16/16 05:45 Eos % 0.2 % (0.9-2.9) L 08/16/16 05:45 Baso % 0.3 % (0.2-1.0) 08/16/16 05:45 Neut # 4.8 x10^3/uL (2.2-4.8) 08/16/16 05:45 Lymph # 2.0 X10^3/uL (1.3-2.9) 08/16/16 05:45 [place] # 0.6 x10^3/uL (0.3-0.8) 08/16/16 05:45 Eos # 0.0 x10^3/uL (0.0-0.2) 08/16/16 05:45 Baso # 0.0 X10^3/uL (0.0-0.1) 08/16/16 05:45 Absolute Nucleated RBC 0.0 /100WBC 08/16/16 05:45 Total Counted 100 08/15/16 04:50 Neutrophils % (Manual) 95 % (39-76) H 08/15/16 04:50 Band Neutrophils % 3 % (0-10) 08/14/16 04:45 Lymphocytes % (Manual) 3 % (13-43) L 08/15/16 04:50 Monocytes % (Manual) 2 % (4-9) L 08/15/16 04:50 Eosinophils % (Manual) 1 % (0-6) 08/14/16 04:45 Plt Morphology Comment Normal (NORMAL) 08/15/16 04:50 RBC Morphology Normal (NORMAL) 08/15/16 04:50 Sodium 144 mmol/L (136-145) 08/16/16 05:45 Corrected Sodium TNP 08/16/16 05:45 Potassium 3.9 mmol/L (3.5-5.1) 08/16/16 05:45 Chloride 109 mmol/L (98-107) H 08/16/16 05:45 Carbon Dioxide 28.9 mmol/L (21-32) 08/16/16 05:45 BUN 29 mg/dL (7-18) H 08/16/16 05:45 Creatinine 0.96 mg/dL (0.70-1.30) 08/16/16 05:45 Est GFR (MDRD) Af Amer > 60 (>60) 08/16/16 05:45 Est GFR (MDRD) Non-Af > 60 (>60) 08/16/16 05:45 Glucose 81 mg/dL (65-99) 08/16/16 05:45 Calcium 8.2 mg/dL (8.5-10.1) L 08/16/16 05:45 Corrected Calcium 9.0 mg/dL (8.5-10.1) 08/16/16 05:45 Total Bilirubin 0.40 mg/dL (0.2-1.0) 08/16/16 05:45 AST 13 Units/L (15-37) L 08/16/16 05:45 ALT 34 Units/L (12-78) 08/16/16 05:45 Alkaline Phosphatase 53 Units/L (46-116) 08/16/16 05:45 Creatine Kinase 103 Units/L (39-308) 08/11/16 21:16 CK-MB (CK-2) 2.9 ng/mL (0-4.0) 08/11/16 21:16 CK/CKMB % Calc 2.8 % (<4) 08/11/16 21:16 Troponin I < 0.02 ng/mL (0-1.5) 08/11/16 21:16 Total Protein 5.3 g/dL (6.4-8.2) L 08/16/16 05:45 Albumin 3.0 g/dL (3.4-5.0) L 08/16/16 05:45 Globulin 2.3 g/dL (2.5-4.5) L 08/16/16 05:45 Albumin/Globulin Ratio 1.3 Ratio (1.1-2.1) 08/16/16 05:45 Specimen Type Clean catch urine 08/11/16 19:25 Urine Color Yellow (YELLOW) 08/11/16 19:25 Urine Appearance Slightly hazy (CLEAR) 08/11/16 19:25 Urine pH 5.0 (5.0 - 8.0) 08/11/16 19:25 Ur Specific [place] 1.025 (1.000-1.030) 08/11/16 19:25 Urine Protein 1+ (NEGATIVE) 08/11/16 19:25 Urine Glucose (UA) Negative (NEGATIVE) 08/11/16 19:25 Urine Ketones Negative (NEGATIVE) 08/11/16 19:25 Urine Occult Blood 3+ (NEGATIVE) 08/11/16 19:25 Urine Nitrite Negative (NEGATIVE) 08/11/16 19:25 Urine Bilirubin Negative (NEGATIVE) 08/11/16 19:25 Urine Urobilinogen Normal (NORMAL) 08/11/16 19:25 Ur Leukocyte Esterase Negative (NEGATIVE) 08/11/16 19:25 Urine RBC 3 - 5 /HPF (NEGATIVE) 08/11/16 19:25 Urine WBC Rare /HPF (NEGATIVE) 08/11/16 19:25 Ur Squamous Epith Cells Few /HPF (NEGATIVE) 08/11/16 19:25 Urine Bacteria Trace /HPF (NEGATIVE) 08/11/16 19:25 Urine Mucus Few /HPF (NEGATIVE) 08/11/16 19:25 Ur Culture Indicated? No/not indicated 08/11/16 19:25 - Plan (1) COPD exacerbation Status: Acute Plan: CONTINUE RESP THERAPY (2) Chest pain Status: Acute Qualifiers: Chest pain type: C Ischemic chest pain type: I Plan: NEGATIVE CARDIAC ENZYMES, CONTINUE BP CONTROL. RESP THERAPY (3) Left-sided weakness Status: Acute Plan: R/T CERVICAL SPINE DDD, PT (4) Adult failure to thrive syndrome Status: Acute Plan: UNABLE TO PERFORM ADLS, FOOD PREPARATION, ASSITANCE WITH GROOMING AND DRESSING. CASE MANAGEMENT WORKING ON HOUSING FOR PT (5) Cervical spine degeneration Status: Chronic Qualifiers: Spinal osteoarthritis complication: S (6) Depression Status: Chronic Qualifiers: Depression Type: D Major depression recurrence: M Active/Remission status : A Major depression episode severity: M Psychotic features: P Trimester: T Plan: CONTINUE LEXAPRO. CONSULT MENTAL HEALTH, DISCUSSED PLACEMENT WITH BEHAVIOR UNIT, PT IS AGREEABLE TO MENTAL HEALTH EVALUATION. (7) HTN (hypertension) Status: Chronic Qualifiers: Hypertension type: H
[2016-08-18] MEDS: TORADOL 30 MG VIAL IVP PRN (20:58)
[2016-08-19] MEDS: NEURONTIN CAP 300 MG PO SCH ×3 (05:35→20:59)
[2016-08-19] MEDS ORDERED: LEXAPRO ONE (08:32)
[2016-08-19] MEDS: DUONEB 0.5 MG/3 MG NEB SCH ×2 (08:52→20:21)
[2016-08-19] MEDS: MOBIC TAB 15 MG PO SCH (09:06)
[2016-08-19] MEDS: LEXAPRO PO SCH (09:06)
[2016-08-19] MEDS: NORVASC TAB 5 MG PO SCH (09:06)
[2016-08-19] MEDS: ZANAFLEX PO SCH ×2 (09:06→20:59)
[2016-08-19] MEDS: ASPIRIN EC 81 MG PO SCH (09:06)
[2016-08-19] MEDS: MORPHINE SULFATE INJ 4 MG IVP PRN (19:28)
[2016-08-20] MEDS: NEURONTIN CAP 300 MG PO SCH ×3 (05:49→21:37)
[2016-08-20 06:23] LABS: BASOPHILS % (AUTO) 0.4 % (0.2-1.0); EOSINOPHILS # (AUTO) 0.2 x10^3/uL (0.0-0.2); HEMATOCRIT 37.9 % (42.0-54.0); HEMOGLOBIN 12.9 g/dL (13.5-18.0); LYMPHOCYTES # (AUTO) 1.7 X10^3/uL (1.3-2.9); LYMPHOCYTES % (AUTO) 26.6 % (21.0-51.0); MEAN CORPUSCULAR HGB CONC 34.2 g/dL (33.0-35.0); MEAN CORPUSCULAR VOLUME 96.7 fL (80.0-100.0); MEAN PLATELET VOLUME 8.5 fL (7.4-11.0); MONOCYTES # (AUTO) 0.4 x10^3/uL (0.3-0.8); PLATELET COUNT 135 X10^3/uL (150.0-450.0); RED BLOOD COUNT 3.92 X10^6/uL (4.7-6.0); RED CELL DISTRIBUTION WIDTH 13.3 % (11.6-16.5); WHITE BLOOD COUNT 6.3 X10^3/uL (3.6-10.0)
[2016-08-20 06:27] LABS: ALANINE AMINOTRANSFERASE 17 Units/L (12-78); ALBUMIN 2.8 g/dL (3.4-5.0); ALKALINE PHOSPHATASE 59 Units/L (46-116); ASPARTATE AMINO TRANSFERASE 11 Units/L (15-37); BLOOD UREA NITROGEN 20 mg/dL (7-18); CALCIUM 8.3 mg/dL (8.5-10.1); CARBON DIOXIDE 27.1 mmol/L (21-32); CHLORIDE 108 mmol/L (98-107); COR CA(FOR HYPOALB) 9.3 mg/dL (8.5-10.1); CREATININE 0.93 mg/dL (0.70-1.30); GLUCOSE 74 mg/dL (65-99); SODIUM 143 mmol/L (136-145); TOTAL PROTEIN 5.5 g/dL (6.4-8.2); eGFR BLACK RACES > 60 (>60); eGFR NON BLACK RACES > 60 (>60)
[2016-08-20] MEDS ORDERED: LEXAPRO ONE (08:33)
[2016-08-20] MEDS: MOBIC TAB 15 MG PO SCH (08:49)
[2016-08-20] MEDS: ASPIRIN EC 81 MG PO SCH (08:49)
[2016-08-20] MEDS: LEXAPRO PO SCH (08:49)
[2016-08-20] MEDS: NORVASC TAB 5 MG PO SCH (08:49)
[2016-08-20] MEDS: ZANAFLEX PO SCH ×2 (08:49→21:37)
[2016-08-20] MEDS: DUONEB 0.5 MG/3 MG NEB SCH ×2 (08:54→20:37)
[2016-08-21] MEDS: NEURONTIN CAP 300 MG PO SCH ×3 (05:45→22:13)
[2016-08-21] MEDS: DUONEB 0.5 MG/3 MG NEB SCH ×2 (08:10→21:14)
[2016-08-21] MEDS ORDERED: LEXAPRO ONE (08:11)
[2016-08-21] MEDS: MOBIC TAB 15 MG PO SCH (08:45)
[2016-08-21] MEDS: LEXAPRO PO SCH (08:45)
[2016-08-21] MEDS: ZANAFLEX PO SCH ×2 (08:45→22:13)
[2016-08-21] MEDS: ASPIRIN EC 81 MG PO SCH (08:46)
[2016-08-21] MEDS: NORVASC TAB 5 MG PO SCH (08:46)
--- NOTE | 2016-08-21 14:11 | PCM.PROG ---
Progress Note - Progress Note for Day of Date: 08/21/16 - Subjective Subjective: PT MORE CALM TODAY, PT ACCEPTED AT [facility], BED PENDING. PT IS 61 WM ER ADMISSION ON SUNDAY AFTER PRESENTING PER EMS WITH CO SOB AND CP. PT HAS CT HEAD AND SERIAL CE'S, STABLE FOR ACUTE CHANGES. PT IS SUFFERING FROM SEVERE DEPRESSION AND CURRENTLY TAKES LEXAPRO, WHICH WE DOSE INCREASED SINCE ADMISSION. DISCUSSED MENTAL HEALTH REFERRAL WITH PT. - Past Medical Family Social History Past Med/Fam/Surg Hx: No changes since H&P Allergies: Allergies No Known Drug Allergy Allergy (Verified 06/19/16 10:45) - Review of Systems ROS: No change since H&P - Vital Signs and I&O's Vital Signs: Temperature 97.9 F Pulse Rate [Right Brachial] 74 Pulse Rate [Left Brachial] 76 Pulse Rate 76 Respiratory Rate 18 Blood Pressure [Left Arm] 123/68 Blood Pressure [Right Arm] 146/81 O2 Sat by Pulse Oximetry 97 Intake and Output: Intake & Output 08/19/16 08/20/16 08/21/16 08/22/16 11:59 11:59 11:59 11:59 Intake Total 1670 610 520 Balance 1670 610 520 - Physical Exam Oriented: Normal Eyes: Normal Ear: Normal Nose: Normal Throat: Dry Respiratory: Wheezes, Rhonchi Cardiovascular: Normal : Normal Auscultation: Bowel Sounds: Normal Tenderness: Normal Skin: Normal Musculoskeletal: Back:Thoracic, Back:Lumbar, Motor Deficit (3/4 HAND STRENGTH BILAT), Sensory Deficit (BILATERAL PARESTHESIAS TO HANDS, ) Psychiatric: Depression Mood Description: Sad Speech Pattern: Clear, Appropriate - Laboratory and Diagnostics Result Diagrams: 08/20/16 04:20 08/20/16 04:20 Labs: Laboratory WBC 6.3 X10^3/uL (3.6-10.0) 08/20/16 04:20 RBC 3.92 X10^6/uL (4.7-6.0) L 08/20/16 04:20 Hgb 12.9 g/dL (13.5-18.0) L 08/20/16 04:20 Hct 37.9 % (42.0-54.0) L 08/20/16 04:20 MCV 96.7 fL (80.0-100.0) 08/20/16 04:20 MCH 33.0 pg (27.0-34.0) 08/20/16 04:20 MCHC 34.2 g/dL (33.0-35.0) 08/20/16 04:20 RDW 13.3 % (11.6-16.5) 08/20/16 04:20 Plt Count 135 X10^3/uL (150.0-450.0) L 08/20/16 04:20 Plt Count Comment Adequate (ADEQUATE) 08/15/16 04:50 MPV 8.5 fL (7.4-11.0) 08/20/16 04:20 Neut % 63.0 % (42.0-75.0) 08/20/16 04:20 Lymph % 26.6 % (21.0-51.0) 08/20/16 04:20 [place] % 7.0 % (0.0-13.0) 08/20/16 04:20 Eos % 3.0 % (0.9-2.9) H 08/20/16 04:20 Baso % 0.4 % (0.2-1.0) 08/20/16 04:20 Neut # 4.0 x10^3/uL (2.2-4.8) 08/20/16 04:20 Lymph # 1.7 X10^3/uL (1.3-2.9) 08/20/16 04:20 [place] # 0.4 x10^3/uL (0.3-0.8) 08/20/16 04:20 Eos # 0.2 x10^3/uL (0.0-0.2) 08/20/16 04:20 Baso # 0.0 X10^3/uL (0.0-0.1) 08/20/16 04:20 Absolute Nucleated RBC 0.3 /100WBC 08/20/16 04:20 Total Counted 100 08/15/16 04:50 Neutrophils % (Manual) 95 % (39-76) H 08/15/16 04:50 Band Neutrophils % 3 % (0-10) 08/14/16 04:45 Lymphocytes % (Manual) 3 % (13-43) L 08/15/16 04:50 Monocytes % (Manual) 2 % (4-9) L 08/15/16 04:50 Eosinophils % (Manual) 1 % (0-6) 08/14/16 04:45 Plt Morphology Comment Normal (NORMAL) 08/15/16 04:50 RBC Morphology Normal (NORMAL) 08/15/16 04:50 Sodium 143 mmol/L (136-145) 08/20/16 04:20 Corrected Sodium TNP 08/20/16 04:20 Potassium 4.0 mmol/L (3.5-5.1) 08/20/16 04:20 Chloride 108 mmol/L (98-107) H 08/20/16 04:20 Carbon Dioxide 27.1 mmol/L (21-32) 08/20/16 04:20 BUN 20 mg/dL (7-18) H 08/20/16 04:20 Creatinine 0.93 mg/dL (0.70-1.30) 08/20/16 04:20 Est GFR (MDRD) Af Amer > 60 (>60) 08/20/16 04:20 Est GFR (MDRD) Non-Af > 60 (>60) 08/20/16 04:20 Glucose 74 mg/dL (65-99) 08/20/16 04:20 Calcium 8.3 mg/dL (8.5-10.1) L 08/20/16 04:20 Corrected Calcium 9.3 mg/dL (8.5-10.1) 08/20/16 04:20 Total Bilirubin 0.40 mg/dL (0.2-1.0) 08/20/16 04:20 AST 11 Units/L (15-37) L 08/20/16 04:20 ALT 17 Units/L (12-78) 08/20/16 04:20 Alkaline Phosphatase 59 Units/L (46-116) 08/20/16 04:20 Creatine Kinase 103 Units/L (39-308) 08/11/16 21:16 CK-MB (CK-2) 2.9 ng/mL (0-4.0) 08/11/16 21:16 CK/CKMB % Calc 2.8 % (<4) 08/11/16 21:16 Troponin I < 0.02 ng/mL (0-1.5) 08/11/16 21:16 Total Protein 5.5 g/dL (6.4-8.2) L 08/20/16 04:20 Albumin 2.8 g/dL (3.4-5.0) L 08/20/16 04:20 Globulin 2.7 g/dL (2.5-4.5) 08/20/16 04:20 Albumin/Globulin Ratio 1.0 Ratio (1.1-2.1) L 08/20/16 04:20 Specimen Type Clean catch urine 08/11/16 19:25 Urine Color Yellow (YELLOW) 08/11/16 19:25 Urine Appearance Slightly hazy (CLEAR) 08/11/16 19:25 Urine pH 5.0 (5.0 - 8.0) 08/11/16 19:25 Ur Specific [place] 1.025 (1.000-1.030) 08/11/16 19:25 Urine Protein 1+ (NEGATIVE) 08/11/16 19:25 Urine Glucose (UA) Negative (NEGATIVE) 08/11/16 19:25 Urine Ketones Negative (NEGATIVE) 08/11/16 19:25 Urine Occult Blood 3+ (NEGATIVE) 08/11/16 19:25 Urine Nitrite Negative (NEGATIVE) 08/11/16 19:25 Urine Bilirubin Negative (NEGATIVE) 08/11/16 19:25 Urine Urobilinogen Normal (NORMAL) 08/11/16 19:25 Ur Leukocyte Esterase Negative (NEGATIVE) 08/11/16 19:25 Urine RBC 3 - 5 /HPF (NEGATIVE) 08/11/16 19:25 Urine WBC Rare /HPF (NEGATIVE) 08/11/16 19:25 Ur Squamous Epith Cells Few /HPF (NEGATIVE) 08/11/16 19:25 Urine Bacteria Trace /HPF (NEGATIVE) 08/11/16 19:25 Urine Mucus Few /HPF (NEGATIVE) 08/11/16 19:25 Ur Culture Indicated? No/not indicated 08/11/16 19:25 - Plan (1) HTN (hypertension) Status: Chronic Qualifiers: Hypertension type: essential hypertension Qualified Code(s): I10 - Essential (primary) hypertension Plan: CONTINUE HOME MEDS (2) Cervical spine degeneration Status: Chronic Qualifiers: Spinal osteoarthritis complication: S Plan: PAIN CONTROL AND PT (3) COPD exacerbation Status: Acute Plan: CONTINUE RESP THERAPY (4) Left-sided weakness Status: Acute Plan: R/T CERVICAL SPINE DDD, PT (5) Adult failure to thrive syndrome Status: Inactive Plan: UNABLE TO PERFORM ADLS, FOOD PREPARATION, ASSITANCE WITH GROOMING AND DRESSING. CASE MANAGEMENT WORKING ON HOUSING FOR PT (6) Depression Status: Chronic Qualifiers: Depression Type: D Major depression recurrence: M Active/Remission status : A Major depression episode severity: M Psychotic features: P Trimester: T Plan: CONTINUE LEXAPRO. CONSULT MENTAL HEALTH, DISCUSSED PLACEMENT WITH BEHAVIOR UNIT, PT IS AGREEABLE TO MENTAL HEALTH EVALUATION.
[2016-08-22] MEDS: NEURONTIN CAP 300 MG PO SCH ×3 (05:11→21:25)
[2016-08-22] MEDS: DUONEB 0.5 MG/3 MG NEB SCH ×2 (08:35→20:40)
[2016-08-22] MEDS ORDERED: LEXAPRO ONE (09:30)
[2016-08-22] MEDS: NORVASC TAB 5 MG PO SCH (09:50)
[2016-08-22] MEDS: MOBIC TAB 15 MG PO SCH (09:50)
[2016-08-22] MEDS: ZANAFLEX PO SCH ×2 (09:50→21:25)
[2016-08-22] MEDS: LEXAPRO PO SCH (09:50)
[2016-08-22] MEDS: ASPIRIN EC 81 MG PO SCH (09:50)
[2016-08-23] MEDS: NEURONTIN CAP 300 MG PO SCH ×3 (05:57→21:29)
[2016-08-23] MEDS ORDERED: LEXAPRO ONE (08:41)
[2016-08-23] MEDS: DUONEB 0.5 MG/3 MG NEB SCH ×2 (09:28→20:53)
[2016-08-23] MEDS: MOBIC TAB 15 MG PO SCH (09:44)
[2016-08-23] MEDS: NORVASC TAB 5 MG PO SCH (09:44)
[2016-08-23] MEDS: ZANAFLEX PO SCH ×2 (09:44→21:29)
[2016-08-23] MEDS: LEXAPRO PO SCH (09:44)
[2016-08-23] MEDS: ASPIRIN EC 81 MG PO SCH (09:45)
--- NOTE | 2016-08-23 16:35 | RAD ---
HISTORY: Twisting injury Study: Right ankle three views Comparison: None Findings: No acute cortical disruption or dislocation can be identified. The ankle mortise remains well align ed. No significant soft tissue swelling or injury can be seen. The visualized portions of the talu s and calcaneus are unremarkable. IMPRESSION: 1. Negative exam. Reported By:
[2016-08-24] MEDS: NEURONTIN CAP 300 MG PO SCH (05:43)
[2016-08-24 08:29] VITALS: BP 141/82
== END 2016-08-24 08:25 | disposition home or self-care (01) | DRG 192 ==
LOC: ER 09:29 → MED/SURG 11:40
PROVIDERS: ADMIT Internal Medicine; ATTEND Internal Medicine
DX: J44.1 Chronic obstructive pulmonary disease with (acute) exacerbation (principal); R94.31 Abnormal electrocardiogram [ECG] [EKG]; R06.02 Shortness of breath; R07.89 Other chest pain; M54.5 Low back pain; M48.06 Spinal stenosis, lumbar region; M79.602 Pain in left arm; M62.81 Muscle weakness (generalized); R26.0 Ataxic gait; Z91.81 History of falling; R62.7 Adult failure to thrive; F32.89 Other specified depressive episodes; I10 Essential (primary) hypertension; M50.30 Other cervical disc degeneration, unspecified cervical region; R26.89 Other abnormalities of gait and mobility
CPT/HCPCS: 36415; 70450; 71010; 73610; 80053; 81001; 82550; 82553; 84484; 85025; 93005; 93010; 94640; 94760; 96365; 96374; 96375; 97535; 99218; 99284; A4222; G0378; J1885; J2270; J2920; J2930; J7620

== ENCOUNTER 2016-09-11 07:43 | Emergency (ER) | payer SELFPAY ==
[2016-09-11 07:56] VITALS: BP 131/87; BMI 20.9
[2016-09-11] MEDS ORDERED: NS 1000 ML 1,000 ML IV ONE (08:05)
--- NOTE | 2016-09-11 08:06 | DR.GENAD ---
HPI - PCP Primary Care Physician: NFD - Complaint/Symptoms Chief Complaint Doctors Comments: Patient states that he has neck and back pain. He has limited use of his left upper extremity. Patient states that he is homeless and he sleeps in his truck. He admits to neck, shoulder and left arm pain. Chief Complaint:: Pt came in by EMS for neck and back pain. Left shoulder appears to be dislocated. Pt states he keeps falling. - Source History Provided: Patient, EMS - Mode of Arrival Mode of Arrival: Stretcher - Timing Onset of Chief Complaint: 09/11/16 <ANUP LAZO - Last Filed: 09/11/16 08:29> PMH - PMH Past Medical History: Yes Past Medical History: Arthritis, COPD Past Surgical History: No Surgical History: No History - Family History History of Family Medical Conditions: Yes Family Medical History: Diabetes Mellitus, [place], Hypertension - Social History Does patient currently use any type of tobacco product: Yes Have you used tobacco products in the last 12 months: Yes Type of Tobacco Use: Cigarettes Does any household member use tobacco: No Alcohol Use: None Do you use any recreational Drugs:: No Lives With: Alone Lives Where: Home - infectious screening In the last 2 months have you had wt loss of >10#?: NO Have you had fever, night sweats or hemotysis?: No Have you traveled outside the country in the last 6 months?: No Isolation: Standard <ANUP LAZO - Last Filed: 09/11/16 08:29> PE - General Limitations: No Limitations General Appearance: Alert, In No Apparent Distress - Head Head Exam: Normal Inspection, Atraumatic - Eyes Eye exam: Normal Appearance, PERRL, EOMI - ENT ENT Exam: Normal Exam External Ear Exam: Normal External Inspection TM/Canal Exam: Bilateral Normal Nose Exam: Normal Nose Exam Mouth Exam: Normal Inspection Throat Exam: Normal Inspection - Neck Neck Exam: Normal Inspection - Chest Chest Inspection: Normal Inspection - Respiratory Respiratory Exam: Normal Lung Sounds Bilat Respiratory Exam: Bilateral Clear to Auscultation - Cardiovascular Cardiovascular Exam: Regular Rate, Normal Rhythm - Abdominal Exam Abdominal Exam: Normal Inspection (scaphoid) Abdominal Tenderness: negative: RUQ, RLQ, LUQ, LLQ, Epigastrium, Suprapubic, Diffuse, Mild, Moderate, Severe, Other - Extremities Extremities Exam: Normal Inspection - Back Back Exam: Normal Inspection, Tenderness. negative: (R) CVA Tenderness, (L) CVA Tenderness - Neurologic Neurological Exam: Alert, Oriented X3, CN II-XII Intact - Psychiatric Psychiatric Exam: Normal Affect - Skin Skin Exam: Warm, Dry, Intact <ANUP LAZO - Last Filed: 09/11/16 08:29> ROR - Labs Reviewed Result Diagrams: 09/11/16 08:25 09/11/16 08:25 <SAVAGE GUERRERO - Last Filed: 09/12/16 11:05> - Labs Reviewed Laboratory: WBC 10.7 X10^3/uL (3.6-10.0) H 09/11/16 08:25 RBC 4.53 X10^6/uL (4.7-6.0) L 09/11/16 08:25 Hgb 14.7 g/dL (13.5-18.0) 09/11/16 08:25 Hct 43.0 % (42.0-54.0) 09/11/16 08:25 MCV 94.9 fL (80.0-100.0) 09/11/16 08:25 MCH 32.5 pg (27.0-34.0) 09/11/16 08:25 MCHC 34.2 g/dL (33.0-35.0) 09/11/16 08:25 RDW 13.5 % (11.6-16.5) 09/11/16 08:25 Plt Count 240 X10^3/uL (150.0-450.0) 09/11/16 08:25 MPV 7.7 fL (7.4-11.0) 09/11/16 08:25 Neut % 84.0 % (42.0-75.0) H 09/11/16 08:25 Lymph % 10.4 % (21.0-51.0) L 09/11/16 08:25 [place] % 4.3 % (0.0-13.0) 09/11/16 08:25 Eos % 0.9 % (0.9-2.9) 09/11/16 08:25 Baso % 0.4 % (0.2-1.0) 09/11/16 08:25 Neut # 9.0 x10^3/uL (2.2-4.8) H 09/11/16 08:25 Lymph # 1.1 X10^3/uL (1.3-2.9) L 09/11/16 08:25 [place] # 0.5 x10^3/uL (0.3-0.8) 09/11/16 08:25 Eos # 0.1 x10^3/uL (0.0-0.2) 09/11/16 08:25 Baso # 0.0 X10^3/uL (0.0-0.1) 09/11/16 08:25 Absolute Nucleated RBC 0.0 /100WBC 09/11/16 08:25 Sodium 141 mmol/L (136-145) 09/11/16 08:25 Corrected Sodium TNP 09/11/16 08:25 Potassium 3.7 mmol/L (3.5-5.1) 09/11/16 08:25 Chloride 102 mmol/L (98-107) 09/11/16 08:25 Carbon Dioxide 27.5 mmol/L (21-32) 09/11/16 08:25 BUN 20 mg/dL (7-18) H 09/11/16 08:25 Creatinine 1.02 mg/dL (0.70-1.30) 09/11/16 08:25 Est GFR (MDRD) Af Amer > 60 (>60) 09/11/16 08:25 Est GFR (MDRD) Non-Af > 60 (>60) 09/11/16 08:25 Glucose 72 mg/dL (65-99) 09/11/16 08:25 Calcium 9.1 mg/dL (8.5-10.1) 09/11/16 08:25 Corrected Calcium 9.7 mg/dL (8.5-10.1) 09/11/16 08:25 Total Bilirubin 1.30 mg/dL (0.2-1.0) H 09/11/16 08:25 AST 21 Units/L (15-37) 09/11/16 08:25 ALT 30 Units/L (12-78) 09/11/16 08:25 Alkaline Phosphatase 89 Units/L (46-116) 09/11/16 08:25 C-Reactive Protein 24.50 mg/L (0-3.0) H 09/11/16 08:25 Total Protein 6.9 g/dL (6.4-8.2) 09/11/16 08:25 Albumin 3.2 g/dL (3.4-5.0) L 09/11/16 08:25 Globulin 3.7 g/dL (2.5-4.5) 09/11/16 08:25 Albumin/Globulin Ratio 0.9 Ratio (1.1-2.1) L 09/11/16 08:25 (SAVAGE GUERRERO) <ANUP LAZO - Last Filed: 09/11/16 08:29> <SAVAGE GUERRERO - Last Filed: 09/12/16 11:05> - Diagnosis Discharge Problem: Arthritis Muscle strain of ankle Qualifiers: Encounter type: initial encounter Laterality: unspecified laterality Qualified Code(s): S96.919A - Strain of unspecified muscle and tendon at ankle and foot level, unspecified foot, initial encounter Shoulder pain Qualifiers: Laterality: left Chronicity: unspecified Qualified Code(s): M25.512 - Pain in left shoulder - Discharge Plan Disposition: 01 HOME, SELF-CARE Condition: Stable Prescriptions: Cyclobenzaprine HCl [FLEXERIL 10 MG *] 10 mg PO TID PRN #30 tab PRN Reason: Ibuprofen [MOTRIN TAB 600 MG *] 600 mg PO TID PRN #30 tab PRN Reason: Pain/Inflammation - Follow ups/Referrals Follow ups/Referrals: NFD,None [Primary Care Provider] - 2 days - Instructions Instructions: Shoulder Pain, Back Pain, Adult, [id number], Cervical Sprain, [id number] Additional Instructions: return to ed if worse.
[2016-09-11] MEDS ORDERED: NS 1000 ML 1,000 ML ONE (08:09)
[2016-09-11 08:53] LABS: BASOPHILS % (AUTO) 0.4 % (0.2-1.0); EOSINOPHILS # (AUTO) 0.1 x10^3/uL (0.0-0.2); EOSINOPHILS % (AUTO) 0.9 % (0.9-2.9); HEMOGLOBIN 14.7 g/dL (13.5-18.0); LYMPHOCYTES # (AUTO) 1.1 X10^3/uL (1.3-2.9); LYMPHOCYTES % (AUTO) 10.4 % (21.0-51.0); MEAN CORPUSCULAR HEMOGLOBIN 32.5 pg (27.0-34.0); MEAN CORPUSCULAR HGB CONC 34.2 g/dL (33.0-35.0); MEAN CORPUSCULAR VOLUME 94.9 fL (80.0-100.0); MEAN PLATELET VOLUME 7.7 fL (7.4-11.0); MONOCYTES # (AUTO) 0.5 x10^3/uL (0.3-0.8); MONOCYTES % (AUTO) 4.3 % (0.0-13.0); PLATELET COUNT 240 X10^3/uL (150.0-450.0); RED BLOOD COUNT 4.53 X10^6/uL (4.7-6.0); RED CELL DISTRIBUTION WIDTH 13.5 % (11.6-16.5); WHITE BLOOD COUNT 10.7 X10^3/uL (3.6-10.0)
[2016-09-11 08:54] LABS: ALANINE AMINOTRANSFERASE 30 Units/L (12-78); ALBUMIN 3.2 g/dL (3.4-5.0); ALKALINE PHOSPHATASE 89 Units/L (46-116); ASPARTATE AMINO TRANSFERASE 21 Units/L (15-37); BLOOD UREA NITROGEN 20 mg/dL (7-18); CALCIUM 9.1 mg/dL (8.5-10.1); CARBON DIOXIDE 27.5 mmol/L (21-32); CHLORIDE 102 mmol/L (98-107); COR CA(FOR HYPOALB) 9.7 mg/dL (8.5-10.1); CREATININE 1.02 mg/dL (0.70-1.30); GLUCOSE 72 mg/dL (65-99); SODIUM 141 mmol/L (136-145); TOTAL PROTEIN 6.9 g/dL (6.4-8.2); eGFR BLACK RACES > 60 (>60); eGFR NON BLACK RACES > 60 (>60)
--- NOTE | 2016-09-11 09:04 | RAD ---
HISTORY: Injury to left shoulder. Study: Left shoulder two views Comparison: July 18, 2016 Findings: There is arthritic change at the acromioclavicular joint and glenohumeral joint. No acute cortical disruption or dislocation can be identified. The visualized portions of the scapula are unremarkabl e. In addition, the visualized portions of the chest appear unremarkable. IMPRESSION: 1. No evidence of acute osseous injury to the left shoulder. 2. Arthritic change at the acromioclavicular and glenohumeral joints. Reported By:
== END 2016-09-11 10:48 | disposition home or self-care (01) ==
LOC: ER 07:43
DX: S96.919A Strain of unspecified muscle and tendon at ankle and foot level, unspecified foot, initial encounter (principal); M19.90 Unspecified osteoarthritis, unspecified site; M25.512 Pain in left shoulder; Y33.XXXA Other specified events, undetermined intent, initial encounter
CPT/HCPCS: 36415; 73030; 80053; 85025; 86140; 96365; 99283; A4222

== ENCOUNTER 2016-09-12 07:45 | Emergency (ER) | payer SELFPAY ==
[2016-09-12 07:59] VITALS: BMI 21.3
--- NOTE | 2016-09-12 08:16 | DR.GENAD ---
HPI - PCP Primary Care Physician: NEHA VILLARREALP - Complaint/Symptoms Chief Complaint Doctors Comments: Seen in ER yesterday. ormal CBC,CMP Urine and shoulder xray. Patient is apparently homeless and did not want to leave.IVF were given also yesterday. Chief Complaint:: EMS OUT TO PT WITH FALL AND INJURY.. PT C/O WEAKNESS TO EMS AND THAT HE CAN'T TAKE IT ANY MORE.. Self Treatment fo Chief Complaint: PT SEEN IN ER ON 09/11/16 AND GIVEN IVF - Nurses notes reviewed Nurses Notes Review: Yes - Source History Provided: Patient - Mode of Arrival Mode of Arrival: Stretcher - Timing Onset of Chief Complaint: 09/11/16 Came on: Gradually - Duration Duration: Constant Duration: Weeks - Severity Severity: Mild - Associated Signs and Symptoms Associated Signs and Symptoms: weakness PMH - PMH Past Medical History: Yes Past Medical History: Arthritis, COPD Past Surgical History: Yes Surgical History: No History - Family History History of Family Medical Conditions: Yes Family Medical History: Diabetes Mellitus, [place], Hypertension - Social History Does patient currently use any type of tobacco product: Yes Have you used tobacco products in the last 12 months: Yes Type of Tobacco Use: Cigarettes How many years tobacco product used: 40 Does any household member use tobacco: No Alcohol Use: None Do you use any recreational Drugs:: No Lives With: Other - infectious screening In the last 2 months have you had wt loss of >10#?: NO Have you had fever, night sweats or hemotysis?: No Have you traveled outside the country in the last 6 months?: No Isolation: Standard ROS - Review of Systems Constitutional: Weakness Eyes: No Symptoms Reported ENTM: No Symptoms Reported Respiratoy: No Symptoms Reported Cardiovascular: No Symptoms Reported Gastrointestinal/Abdominal: No Symptoms Reported Genitourinary: No Symptoms Reported Neurological: No Symptoms Reported Musculoskeletal: No Symptoms Reported Integumentary: No Symptoms Reported Hematologic/Lymphatic: No Symptoms Reported Endocrine: No Symptoms Reported Psychiatric: Depression PE - Vital Signs Vitals: Temperature 97.4 F Pulse Rate 85 Respiratory Rate 20 Blood Pressure [Left Arm] 141/82 Blood Pressure [Right Arm] 126/69 Blood Pressure 140/92 O2 Sat by Pulse Oximetry 90 - General Limitations: No Limitations General Appearance: Alert, In No Apparent Distress - Head Head Exam: Normal Inspection - Eyes Eye exam: Normal Appearance, EOMI. negative: Scleral Icterus, Conjunctival Injection - ENT ENT Exam: Normal Exam, Normal Oropharynx External Ear Exam: Normal External Inspection Mouth Exam: Other (poor dentition) - Neck Neck Exam: Normal Inspection, Trachea Midline - Chest Chest Inspection: Normal Inspection - Respiratory Respiratory Exam: Normal Lung Sounds Bilat. negative: Accessory Muscle Use, Respiratory Distress Respiratory Exam: Bilateral Clear to Auscultation - Cardiovascular Cardiovascular Exam: Regular Rate - Abdominal Exam Abdominal Exam: Normal Inspection, Normal Bowel Sounds, Soft. negative: Distention, Tenderness - Extremities Extremities Exam: Normal Inspection, Full ROM - Back Back Exam: Normal Inspection - Neurologic Neurological Exam: Alert, Oriented X3, CN II-XII Intact - Psychiatric Psychiatric Exam: Depressed - Skin Skin Exam: Warm, Dry, Intact, Normal Color ROR - Labs Reviewed Laboratory: Sample Site Lra 09/12/16 08:40 ABG pH 7.430 (7.35-7.45) 09/12/16 08:40 ABG pCO2 44.0 mmHg (35.0-45.0) 09/12/16 08:40 ABG pO2 76.0 mmHg (80.0-100.0) L 09/12/16 08:40 ABG HCO3 29.2 mmol/L (22-26) H 09/12/16 08:40 ABG O2 Saturation 95.0 % (90-100) 09/12/16 08:40 ABG Base Excess 4.3 mmol/L (-2.0-2.0) H 09/12/16 08:40 Sathish Test Pos 09/12/16 08:40 A-a Gradient 69.0 mmHg 09/12/16 08:40 FiO2 28.000 09/12/16 08:40 Blood Gas Comments Maeve well cs 09/12/16 08:40 Creatine Kinase 89 Units/L (39-308) 09/12/16 08:47 Troponin I 0.02 ng/mL (0-1.5) 09/12/16 08:47 Urine Opiates Screen Negative (NEG=<300) 09/12/16 10:06 Urine Methadone Screen Negative (NEG=<300) 09/12/16 10:06 Ur Barbiturates Screen Negative (NEG=<200) 09/12/16 10:06 Ur Phencyclidine Scrn Negative (NEG=<25) 09/12/16 10:06 Ur Amphetamines Screen Negative (NEG=<1000) 09/12/16 10:06 U Benzodiazepines Scrn Negative (NEG=<200) 09/12/16 10:06 Urine Cocaine Screen Negative (NEG=<300) 09/12/16 10:06 U Marijuana (THC) Screen Negative (NEG=<50) 09/12/16 10:06 - Diagnosis Discharge Problem: Weakness - Discharge Plan Condition: Stable - Follow ups/Referrals Follow ups/Referrals: NFD,None [Primary Care Provider] - 3 days - Instructions
[2016-09-12 08:47] LABS: ABG ALLEN TEST POS; ABG BASE EXCESS 4.3 mmol/L (-2.0-2.0); ABG HCO3 29.2 mmol/L (22-26)
[2016-09-12 09:09] LABS: TROPONIN I 0.02 ng/mL (0-1.5)
[2016-09-12 17:03] LABS: BASOPHILS # (AUTO) 0.1 X10^3/uL (0.0-0.1); BASOPHILS % (AUTO) 1.4 % (0.2-1.0); EOSINOPHILS # (AUTO) 0.1 x10^3/uL (0.0-0.2); HEMATOCRIT 39.8 % (42.0-54.0); HEMOGLOBIN 13.9 g/dL (13.5-18.0); LYMPHOCYTES # (AUTO) 1.2 X10^3/uL (1.3-2.9); LYMPHOCYTES % (AUTO) 17.9 % (21.0-51.0); MEAN CORPUSCULAR HEMOGLOBIN 32.3 pg (27.0-34.0); MEAN CORPUSCULAR HGB CONC 34.8 g/dL (33.0-35.0); MEAN CORPUSCULAR VOLUME 92.6 fL (80.0-100.0); MEAN PLATELET VOLUME 7.7 fL (7.4-11.0); MONOCYTES # (AUTO) 0.4 x10^3/uL (0.3-0.8); MONOCYTES % (AUTO) 5.5 % (0.0-13.0); NEUTROPHILS # (AUTO) 4.9 x10^3/uL (2.2-4.8); NEUTROPHILS % (AUTO) 74.2 % (42.0-75.0); PLATELET COUNT 213 X10^3/uL (150.0-450.0); RED BLOOD COUNT 4.29 X10^6/uL (4.7-6.0); RED CELL DISTRIBUTION WIDTH 12.8 % (11.6-16.5); WHITE BLOOD COUNT 6.6 X10^3/uL (3.6-10.0)
[2016-09-12 17:19] LABS: ACETAMINOPHEN 3.5 ug/mL (10-30); SALICYLATE 2.8 mg/dL (2.8-20)
[2016-09-12 17:20] LABS: ALANINE AMINOTRANSFERASE 25 Units/L (12-78); ALBUMIN 2.9 g/dL (3.4-5.0); ALKALINE PHOSPHATASE 76 Units/L (46-116); ASPARTATE AMINO TRANSFERASE 22 Units/L (15-37); BLOOD ALCOHOL < 3 mg/dL (0-19.9); BLOOD UREA NITROGEN 13 mg/dL (7-18); CALCIUM 8.6 mg/dL (8.5-10.1); CARBON DIOXIDE 30.8 mmol/L (21-32); CHLORIDE 106 mmol/L (98-107); COR CA(FOR HYPOALB) 9.5 mg/dL (8.5-10.1); CREATININE 0.83 mg/dL (0.70-1.30); GLUCOSE 93 mg/dL (65-99); SODIUM 143 mmol/L (136-145); TOTAL PROTEIN 6.2 g/dL (6.4-8.2); eGFR BLACK RACES > 60 (>60); eGFR NON BLACK RACES > 60 (>60)
[2016-09-12] MEDS ORDERED: K-LYTE EFFERVESCENT ONE (17:32)
[2016-09-12] MEDS ORDERED: K-LYTE EFFERVESCENT PO SCH (18:00)
[2016-09-12 19:30] VITALS: BP 164/92
== END 2016-09-12 21:19 | disposition home or self-care (01) ==
LOC: ER 08:04
DX: R53.1 Weakness (principal)
CPT/HCPCS: 36415; 36600; 80053; 80307; 80320; 82550; 82803; 84132; 84484; 85025; 93005; 93010; 99282; 99285; G0434; G6038; G6039; G6040

== ENCOUNTER 2016-09-18 12:56 | Observation (INO) | payer OTHER ==
--- NOTE | 2016-09-18 14:05 | DR.EXTPAIN ---
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 He was put out of the house. Patient states that he is unable to walk due to his arthritis. He was scheduled for surgery but did not have the funds to pay according to him. He has been seen on several visits to the ED for lack of a polace to stay. 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 He has been displaced from his home where he reside with his son who has put him out. He states that he is willing to try and get placement in the retirement; which is the purpose of the hospitalization. Chief Complaint:: PT. STATES MY SON PUT ME IN MY TRUCK AND DROVE ME TO TOWN AND LEFT ME. I CAN'T WALK OR ANYTHING. I ONLY HAVE CONTROL OVER MY RIGHT ARM AND NECK. PT. FELL OUT OF HIS TRUCK ONTO [place] TRYING TO GET SOMEONE'S ATTENTION TO HELP HIM. - Source History Provided: Patient, EMS - Mode of arrival Mode of Arrival: EMS - Timing Onset of Chief Complaint: 09/18/16 PMH - PMH Past Medical History: Yes Past Medical History: Arthritis, COPD Past Surgical History: No Surgical History: No History - Family History History of Family Medical Conditions: Yes Family Medical History: Diabetes Mellitus, [place], Hypertension - Social History Does patient currently use any type of tobacco product: Yes Have you used tobacco products in the last 12 months: Yes Type of Tobacco Use: None Does any household member use tobacco: No Alcohol Use: None Do you use any recreational Drugs:: No Lives With: Alone Lives Where: Homeless - infectious screening In the last 2 months have you had wt loss of >10#?: NO Have you had fever, night sweats or hemotysis?: No Have you traveled outside the country in the last 6 months?: No Isolation: Standard ROS - Review of Systems Eyes: No Symptoms Reported ENTM: No Symptoms Reported Respiratoy: No Symptoms Reported Cardiovascular: No Symptoms Reported Gastrointestinal/Abdominal: No Symptoms Reported Genitourinary: No Symptoms Reported Neurological: Weakness, Problems Walking Musculoskeletal: Back Pain, Neck Pain Integumentary: No Symptoms Reported Hematologic/Lymphatic: No Symptoms Reported Endocrine: No Symptoms Reported Psychiatric: No Symptoms Reported All Other Systems: Reviewed and Negative PE - Vital Signs Vitals: Temperature 97.6 F Pulse Rate [Right Brachial] 105 Pulse Rate 120 Respiratory Rate 17 Blood Pressure [Left Arm] 164/92 Blood Pressure [Right Arm] 116/84 Blood Pressure 98/88 O2 Sat by Pulse Oximetry 95 - General Limitations: No Limitations General Appearance: Alert, In No Apparent Distress - Head Head Exam: Normal Inspection, Atraumatic - Eyes Eye exam: Normal Appearance, PERRL, EOMI - ENT ENT Exam: Normal Exam - Neck Neck Exam: Normal Inspection - Chest Chest Inspection: Normal Inspection - Respiratory Respiratory Exam: Normal Lung Sounds Bilat Respiratory Exam: Bilateral Clear to Auscultation - Cardiovascular Cardiovascular Exam: Regular Rate, Normal Rhythm - Abdominal Exam Abdominal Exam: Normal Inspection, Normal Bowel Sounds Abdominal Tenderness: negative: RUQ, RLQ, LUQ, LLQ, Epigastrium, Suprapubic, Diffuse, Mild, Moderate, Severe, Other - Extremities Extremities Exam: Normal Inspection, Other (admits to limitation of left upper extremity due to arthritis) - Upper Extremities Shoulder Exam: Normal Inspection Arm Exam: Normal Inspection Elbow Exam: Normal Inspection Forearm Exam: Normal Inspection Hand Exam: Normal Inspection Neuromotor Exam: Normal Exam Neurosensory Exam: Normal Exam Hand Tendon Exam: Flexor Digitorium Profundus (Location) Upper Ext. Vascular Exam: Capillary Refill - Lower Extremities Hip/Pelvis Exam: Normal Inspection Upper Leg Exam: Normal Inspection Knee Exam: Normal Inspection Lower Leg Exam: Normal Inspection, Other Foot/Toe Exam: Normal Inspection Neurovascular/Tendon Exam: Normal Capillary Refill Gait Exam: Unable to bear weight (due to arthritis) - Back Back Exam: Normal Inspection - Neurological Neurological Exam: Alert, Oriented X3, CN II-XII Intact - Psychiatric Psychiatric Exam: Normal Affect - Skin Skin Exam: Warm, Dry, Other (abrasion left elbow/forearm) Type of Lesion: Rash Course - Treatment Treatment: Dr Szymanski is in agreement to admits for retirement placement but wanted administration to be in agreement for this admission since the patient has left AMA on previous occasion. ROR - Labs Reviewed Result Diagrams: 09/18/16 14:19 09/18/16 14:19 Laboratory: WBC 12.0 X10^3/uL (3.6-10.0) H 09/18/16 14:19 RBC 4.48 X10^6/uL (4.7-6.0) L 09/18/16 14:19 Hgb 14.5 g/dL (13.5-18.0) 09/18/16 14:19 Hct 42.3 % (42.0-54.0) 09/18/16 14:19 MCV 94.4 fL (80.0-100.0) 09/18/16 14:19 MCH 32.3 pg (27.0-34.0) 09/18/16 14:19 MCHC 34.2 g/dL (33.0-35.0) 09/18/16 14:19 RDW 13.4 % (11.6-16.5) 09/18/16 14:19 Plt Count 232 X10^3/uL (150.0-450.0) 09/18/16 14:19 MPV 8.2 fL (7.4-11.0) 09/18/16 14:19 Neut % 84.6 % (42.0-75.0) H 09/18/16 14:19 Lymph % 9.9 % (21.0-51.0) L 09/18/16 14:19 [place] % 4.4 % (0.0-13.0) 09/18/16 14:19 Eos % 0.3 % (0.9-2.9) L 09/18/16 14:19 Baso % 0.8 % (0.2-1.0) 09/18/16 14:19 Neut # 10.1 x10^3/uL (2.2-4.8) H 09/18/16 14:19 Lymph # 1.2 X10^3/uL (1.3-2.9) L 09/18/16 14:19 [place] # 0.5 x10^3/uL (0.3-0.8) 09/18/16 14:19 Eos # 0.0 x10^3/uL (0.0-0.2) 09/18/16 14:19 Baso # 0.1 X10^3/uL (0.0-0.1) 09/18/16 14:19 Absolute Nucleated RBC 0.0 /100WBC 09/18/16 14:19 Sodium 144 mmol/L (136-145) 09/18/16 14:19 Corrected Sodium 144 mmol/L (136-145) 09/18/16 14:19 Potassium 3.5 mmol/L (3.5-5.1) 09/18/16 14:19 Chloride 107 mmol/L (98-107) 09/18/16 14:19 Carbon Dioxide 27.1 mmol/L (21-32) 09/18/16 14:19 BUN 27 mg/dL (7-18) H 09/18/16 14:19 Creatinine 1.02 mg/dL (0.70-1.30) 09/18/16 14:19 Est GFR (MDRD) Af Amer > 60 (>60) 09/18/16 14:19 Est GFR (MDRD) Non-Af > 60 (>60) 09/18/16 14:19 Glucose 118 mg/dL (65-99) H 09/18/16 14:19 Calcium 8.9 mg/dL (8.5-10.1) 09/18/16 14:19 Corrected Calcium 9.7 mg/dL (8.5-10.1) 09/18/16 14:19 Total Bilirubin 0.80 mg/dL (0.2-1.0) 09/18/16 14:19 AST 36 Units/L (15-37) 09/18/16 14:19 ALT 28 Units/L (12-78) 09/18/16 14:19 Alkaline Phosphatase 81 Units/L (46-116) 09/18/16 14:19 Total Protein 6.5 g/dL (6.4-8.2) 09/18/16 14:19 Albumin 3.0 g/dL (3.4-5.0) L 09/18/16 14:19 Globulin 3.5 g/dL (2.5-4.5) 09/18/16 14:19 Albumin/Globulin Ratio 0.9 Ratio (1.1-2.1) L 09/18/16 14:19 - Diagnosis Discharge Problem: Homeless DJD (degenerative joint disease) Qualifiers: Osteoarthritis location: spine Spinal region: cervicothoracic Spinal osteoarthritis complication: with radiculopathy Qualified Code(s): M47.23 - Other spondylosis with radiculopathy, cervicothoracic region - Discharge Plan Condition: Stable - Follow ups/Referrals Follow ups/Referrals: NFD,None [Primary Care Provider] - 3 days - Instructions
[2016-09-18 14:28] LABS: BASOPHILS # (AUTO) 0.1 X10^3/uL (0.0-0.1); BASOPHILS % (AUTO) 0.8 % (0.2-1.0); EOSINOPHILS % (AUTO) 0.3 % (0.9-2.9); HEMATOCRIT 42.3 % (42.0-54.0); HEMOGLOBIN 14.5 g/dL (13.5-18.0); LYMPHOCYTES # (AUTO) 1.2 X10^3/uL (1.3-2.9); LYMPHOCYTES % (AUTO) 9.9 % (21.0-51.0); MEAN CORPUSCULAR HEMOGLOBIN 32.3 pg (27.0-34.0); MEAN CORPUSCULAR HGB CONC 34.2 g/dL (33.0-35.0); MEAN CORPUSCULAR VOLUME 94.4 fL (80.0-100.0); MEAN PLATELET VOLUME 8.2 fL (7.4-11.0); MONOCYTES # (AUTO) 0.5 x10^3/uL (0.3-0.8); MONOCYTES % (AUTO) 4.4 % (0.0-13.0); NEUTROPHILS # (AUTO) 10.1 x10^3/uL (2.2-4.8); NEUTROPHILS % (AUTO) 84.6 % (42.0-75.0); PLATELET COUNT 232 X10^3/uL (150.0-450.0); RED BLOOD COUNT 4.48 X10^6/uL (4.7-6.0); RED CELL DISTRIBUTION WIDTH 13.4 % (11.6-16.5)
[2016-09-18 14:40] LABS: ALANINE AMINOTRANSFERASE 28 Units/L (12-78); ALKALINE PHOSPHATASE 81 Units/L (46-116); ASPARTATE AMINO TRANSFERASE 36 Units/L (15-37); BLOOD UREA NITROGEN 27 mg/dL (7-18); CALCIUM 8.9 mg/dL (8.5-10.1); CARBON DIOXIDE 27.1 mmol/L (21-32); CHLORIDE 107 mmol/L (98-107); COR CA(FOR HYPOALB) 9.7 mg/dL (8.5-10.1); COR NA(FOR HYPERGLY) 144 mmol/L (136-145); CREATININE 1.02 mg/dL (0.70-1.30); GLUCOSE 118 mg/dL (65-99); SODIUM 144 mmol/L (136-145); TOTAL PROTEIN 6.5 g/dL (6.4-8.2); eGFR BLACK RACES > 60 (>60); eGFR NON BLACK RACES > 60 (>60)
[2016-09-18] MEDS ORDERED: NORCO 10/325 TAB PO PRN (19:51)
[2016-09-18] MEDS ORDERED: ZANAFLEX PO PRN (19:51)
[2016-09-18] MEDS ORDERED: CYCLOBENZAPRINE HCL PO SCH (20:00)
[2016-09-18] MEDS ORDERED: BUTT CREAM (COMPOUND) TOP PRN (20:31)
[2016-09-18] MEDS: FLEXERIL TAB 10 MG PO SCH (21:11)
[2016-09-18] MEDS: KEFLEX CAP 500 MG PO SCH (21:11)
[2016-09-18] MEDS: NS 1000 ML 1,000 ML IV SCH (21:11)
[2016-09-19] MEDS: FLEXERIL TAB 10 MG PO SCH ×4 (03:14→22:05)
[2016-09-19 06:16] LABS: BASOPHILS # (AUTO) 0.1 X10^3/uL (0.0-0.1); BASOPHILS % (AUTO) 1.3 % (0.2-1.0); EOSINOPHILS # (AUTO) 0.1 x10^3/uL (0.0-0.2); EOSINOPHILS % (AUTO) 1.6 % (0.9-2.9); HEMATOCRIT 37.4 % (42.0-54.0); HEMOGLOBIN 12.9 g/dL (13.5-18.0); LYMPHOCYTES # (AUTO) 1.3 X10^3/uL (1.3-2.9); LYMPHOCYTES % (AUTO) 19.6 % (21.0-51.0); MEAN CORPUSCULAR HEMOGLOBIN 32.4 pg (27.0-34.0); MEAN CORPUSCULAR HGB CONC 34.6 g/dL (33.0-35.0); MEAN CORPUSCULAR VOLUME 93.5 fL (80.0-100.0); MEAN PLATELET VOLUME 8.5 fL (7.4-11.0); MONOCYTES # (AUTO) 0.5 x10^3/uL (0.3-0.8); MONOCYTES % (AUTO) 7.6 % (0.0-13.0); NEUTROPHILS # (AUTO) 4.7 x10^3/uL (2.2-4.8); NEUTROPHILS % (AUTO) 69.9 % (42.0-75.0); PLATELET COUNT 202 X10^3/uL (150.0-450.0); RED CELL DISTRIBUTION WIDTH 13.2 % (11.6-16.5); WHITE BLOOD COUNT 6.7 X10^3/uL (3.6-10.0)
[2016-09-19 06:23] LABS: ALANINE AMINOTRANSFERASE 32 Units/L (12-78); ALBUMIN 2.4 g/dL (3.4-5.0); ALKALINE PHOSPHATASE 77 Units/L (46-116); ASPARTATE AMINO TRANSFERASE 49 Units/L (15-37); BLOOD UREA NITROGEN 27 mg/dL (7-18); CALCIUM 8.5 mg/dL (8.5-10.1); CARBON DIOXIDE 28.7 mmol/L (21-32); CHLORIDE 108 mmol/L (98-107); COR CA(FOR HYPOALB) 9.8 mg/dL (8.5-10.1); COR NA(FOR HYPERGLY) 143 mmol/L (136-145); CREATININE 0.91 mg/dL (0.70-1.30); GLUCOSE 111 mg/dL (65-99); SODIUM 143 mmol/L (136-145); TOTAL PROTEIN 5.6 g/dL (6.4-8.2); eGFR BLACK RACES > 60 (>60); eGFR NON BLACK RACES > 60 (>60)
[2016-09-19] MEDS ORDERED: LEXAPRO ONE (08:54)
[2016-09-19] MEDS: NS 1000 ML 1,000 ML IV SCH ×2 (09:13→22:04)
[2016-09-19] MEDS: LEXAPRO PO SCH (09:13)
[2016-09-19] MEDS: KEFLEX CAP 500 MG PO SCH ×4 (09:13→22:05)
--- NOTE | 2016-09-19 13:10 | DR.H&P ---
H&P - History & Physical for Day of: H&P Date: 09/18/16 - Chief Complaint Chief Complaint: WOUNDS FROM FALLS, WEAKNESS - Allergies Allergies/Adverse Reactions: Allergies Allergy/AdvReac Type Severity Reaction Status Date / Time No Known Drug Allergy Allergy Verified 09/18/16 13:18 - History of Present Illness History of Present Illness: PATIENT IS A 61-YEAR-OLD WHITE MALE WHO WAS ADMITTED FROM THE EMERGENCY ROOM AFTER PRESENTING WITH COMPLAINTS OF MULTIPLE SUPERFICIAL LACERATIONS FROM REPEATED FALLING. pATIENT STATES HIS FAMILY MEMBER LEFT HIM UNDERGO [facility]. PATIENT STATES HE IS HOMELESS AND HAS NO ONE TO TAKE CARE OF HIM AND HE IS UNABLE OF TAKING CARE OF HIMSELF. pATIENT WAS RECENTLY IN [facility] FOR TREATMENT OF SEVERE DEGENERATIVE DISC DISEASE WELL copd AND CHRONIC DEPRESSION. pATIENT HAS A WELFARE SPECIALIST FOR HIS PHYSICAL DISABILITY CASE WHICH IS PENDING. wE HAVE TRIED MULTIPLE TIMES TO HAVE PATIENT ACCEPTED IN MENTAL HEALTH FACILITIES WELL LONG-TERM CARE. pATIENT WAS SEEN IN [place] APPROXIMATELY 2-3 WEEKS AGO AND WAS TOLD HE NEEDED SURGERY ON HIS NECK. sINCE HIS LAST er VISIT IN [place] PATIENT STATES THAT HE IS UNABLE TO FEED HIMSELF HE CANNOT USE THE URINAL PATIENT HAS BEEN WEARING ADULT DIAPERS PATIENT HAS VERY POOR HYGIENE AND SMELLS STRONGLY OF URINE. pATIENT'S PRESENTATION IS VERY OUT OF SORTS. PPLANS ADMIT FOR HYDRATION AND PHYSICAL THERAPY ASSESSMENT WELL ANTIBIOTIC THERAPY FOR SUPERFICIAL WOUNDS - Past Medical History Past Medical History: Arthritis, COPD - Past Surgical History Surgical History: No History - Family History Family Medical History: Diabetes Mellitus, [place], Hypertension - Social History Does patient currently use any type of tobacco product: Yes Have you used tobacco products in the last 12 months: Yes Type of Tobacco Use: Cigarettes Does any household member use tobacco: No Alcohol Use: None Drug Use: None - Review of Systems Constitutional: Weakness, Other (POOR HYGIENE, SMELLS OF URINE) Eyes: No Symptoms Reported ENT: No Symptoms Reported Respiratory: No Symptoms Reported Cardiovascular: No Symptoms Reported Gastrointestinal: No Symptoms Reported Genitourinary: No Symptoms Reported Musculoskeletal: Back Pain, Neck Pain Skin: Wound (SCATTERED SF LACERATIONS TO BILATERAL UPPER EXTREMITIES) Neurological: Weakness - Physical Exam Vital Signs: Temperature 98.0 F Pulse Rate [Right Brachial] 77 Respiratory Rate 20 Blood Pressure [Right Arm] 142/86 O2 Sat by Pulse Oximetry 92 Oriented: Normal Eyes: Normal Ear: Normal Nose: Normal Throat: Normal Respiratory: RLL Exp. Wheeze, LLL Exp. Wheeze Cardiovascular: Normal : Normal Auscultation: Bowel Sounds: Normal Palpation: Normal Tenderness: Normal Skin: Decreased Turgur, Wound, Bruising Musculoskeletal: Back:Thoracic, Back:Lumbar, Motor Deficit (BILATERAL UPPER EXTREMITY AND LOWER EXTREMITY MUSCLE WEAKNESS) Psychiatric: Anxiety, Depression Mood Description: Withdrawn Affect: Depressed Speech Pattern: Clear, Appropriate - Assessment/Plan (1) Weakness Status: Acute Plan: PT CONSULT (2) Homeless Status: Acute (3) Arthritis Status: Chronic (4) Cervical spine degeneration Qualifiers: Spinal osteoarthritis complication: S Status: Chronic Plan: PAIN CONTROL PT (5) Depression Qualifiers: Depression Type: D Major depression recurrence: M Active/Remission status : A Major depression episode severity: M Psychotic features: P Trimester: T Status: Chronic (6) HTN (hypertension) Qualifiers: Hypertension type: essential hypertension Qualified Code(s): I10 - Essential (primary) hypertension Status: Chronic Plan: RESUME HOME MEDS
[2016-09-19] MEDS: COLACE CAP 100 MG PO SCH (22:05)
[2016-09-20] MEDS: FLEXERIL TAB 10 MG PO SCH ×4 (03:02→21:42)
[2016-09-20 06:25] LABS: BASOPHILS # (AUTO) 0.1 X10^3/uL (0.0-0.1); BASOPHILS % (AUTO) 1.9 % (0.2-1.0); EOSINOPHILS # (AUTO) 0.1 x10^3/uL (0.0-0.2); EOSINOPHILS % (AUTO) 2.5 % (0.9-2.9); HEMOGLOBIN 12.7 g/dL (13.5-18.0); LYMPHOCYTES # (AUTO) 1.3 X10^3/uL (1.3-2.9); LYMPHOCYTES % (AUTO) 28.4 % (21.0-51.0); MEAN CORPUSCULAR HEMOGLOBIN 32.1 pg (27.0-34.0); MEAN CORPUSCULAR HGB CONC 34.3 g/dL (33.0-35.0); MEAN CORPUSCULAR VOLUME 93.7 fL (80.0-100.0); MEAN PLATELET VOLUME 8.4 fL (7.4-11.0); MONOCYTES # (AUTO) 0.4 x10^3/uL (0.3-0.8); MONOCYTES % (AUTO) 7.7 % (0.0-13.0); NEUTROPHILS # (AUTO) 2.8 x10^3/uL (2.2-4.8); NEUTROPHILS % (AUTO) 59.5 % (42.0-75.0); PLATELET COUNT 180 X10^3/uL (150.0-450.0); RED BLOOD COUNT 3.95 X10^6/uL (4.7-6.0); WHITE BLOOD COUNT 4.8 X10^3/uL (3.6-10.0)
[2016-09-20 06:44] LABS: ALANINE AMINOTRANSFERASE 35 Units/L (12-78); ALBUMIN 2.1 g/dL (3.4-5.0); ALKALINE PHOSPHATASE 67 Units/L (46-116); ASPARTATE AMINO TRANSFERASE 39 Units/L (15-37); BLOOD UREA NITROGEN 18 mg/dL (7-18); CALCIUM 8.5 mg/dL (8.5-10.1); CARBON DIOXIDE 25.3 mmol/L (21-32); CHLORIDE 109 mmol/L (98-107); CREATININE 0.76 mg/dL (0.70-1.30); GLUCOSE 84 mg/dL (65-99); SODIUM 143 mmol/L (136-145); TOTAL PROTEIN 5.7 g/dL (6.4-8.2); eGFR BLACK RACES > 60 (>60); eGFR NON BLACK RACES > 60 (>60)
[2016-09-20] MEDS ORDERED: LEXAPRO ONE (08:08)
[2016-09-20] MEDS: KEFLEX CAP 500 MG PO SCH ×4 (08:09→21:42)
[2016-09-20] MEDS: LEXAPRO PO SCH (08:09)
[2016-09-20] MEDS: NS 1000 ML 1,000 ML IV SCH (10:15)
--- NOTE | 2016-09-20 17:56 | PCM.PROG ---
Progress Note - Progress Note for Day of Date: 09/20/16 - Subjective Subjective: PT CONTINUED WITH UPPER AND LOWER EXTREMITY WEAKNESS. 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 PT ALSO SIGNIFICANTLY DECREASED LOWER EXTREMITY MUSCLE STRENGTH AND LIMITED MOBILITY. 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 PT EVALUATION THIS AM, DISCUSSED POSSIBLE TRANSFER TO NEUROSURGEON/ TERTIARY CARE FACILTY. - Past Medical Family Social History Past Med/Fam/Surg Hx: No changes since H&P Allergies: Allergies No Known Drug Allergy Allergy (Verified 09/18/16 13:18) - Review of Systems ROS: No change since H&P - Vital Signs and I&O's Vital Signs: Temperature 97.8 F Pulse Rate [Right Brachial] 76 Respiratory Rate 20 Blood Pressure [Left Arm] 179/93 Blood Pressure [Right Arm] 147/91 O2 Sat by Pulse Oximetry 94 Intake and Output: Intake & Output 09/18/16 09/19/16 09/20/16 09/21/16 11:59 11:59 11:59 11:59 Intake Total 1290 2670 1200 Output Total 1025 1025 Balance 1290 1645 175 - Physical Exam Oriented: Normal Eyes: Normal Ear: Normal Nose: Normal Throat: Normal Respiratory: Diminished Cardiovascular: Normal : Normal Auscultation: Bowel Sounds: Normal Tenderness: Normal Skin: Decreased Turgur, Wound, Bruising Musculoskeletal: Back:Thoracic, Back:Lumbar, Motor Deficit (BILATERAL UPPER EXTREMITY AND LOWER EXTREMITY MUSCLE WEAKNESS) Psychiatric: Anxiety, Depression Mood Description: Withdrawn Affect: Depressed Speech Pattern: Clear, Appropriate - Laboratory and Diagnostics Result Diagrams: 09/20/16 04:04 09/20/16 04:04 Labs: Laboratory WBC 4.8 X10^3/uL (3.6-10.0) 09/20/16 04:04 RBC 3.95 X10^6/uL (4.7-6.0) L 09/20/16 04:04 Hgb 12.7 g/dL (13.5-18.0) L 09/20/16 04:04 Hct 37.0 % (42.0-54.0) L 09/20/16 04:04 MCV 93.7 fL (80.0-100.0) 09/20/16 04:04 MCH 32.1 pg (27.0-34.0) 09/20/16 04:04 MCHC 34.3 g/dL (33.0-35.0) 09/20/16 04:04 RDW 13.0 % (11.6-16.5) 09/20/16 04:04 Plt Count 180 X10^3/uL (150.0-450.0) 09/20/16 04:04 MPV 8.4 fL (7.4-11.0) 09/20/16 04:04 Neut % 59.5 % (42.0-75.0) 09/20/16 04:04 Lymph % 28.4 % (21.0-51.0) 09/20/16 04:04 [place] % 7.7 % (0.0-13.0) 09/20/16 04:04 Eos % 2.5 % (0.9-2.9) 09/20/16 04:04 Baso % 1.9 % (0.2-1.0) H 09/20/16 04:04 Neut # 2.8 x10^3/uL (2.2-4.8) 09/20/16 04:04 Lymph # 1.3 X10^3/uL (1.3-2.9) 09/20/16 04:04 [place] # 0.4 x10^3/uL (0.3-0.8) 09/20/16 04:04 Eos # 0.1 x10^3/uL (0.0-0.2) 09/20/16 04:04 Baso # 0.1 X10^3/uL (0.0-0.1) 09/20/16 04:04 Absolute Nucleated RBC 0.1 /100WBC 09/20/16 04:04 Sodium 143 mmol/L (136-145) 09/20/16 04:04 Corrected Sodium TNP 09/20/16 04:04 Potassium 3.5 mmol/L (3.5-5.1) 09/20/16 04:04 Chloride 109 mmol/L (98-107) H 09/20/16 04:04 Carbon Dioxide 25.3 mmol/L (21-32) 09/20/16 04:04 BUN 18 mg/dL (7-18) 09/20/16 04:04 Creatinine 0.76 mg/dL (0.70-1.30) 09/20/16 04:04 Est GFR (MDRD) Af Amer > 60 (>60) 09/20/16 04:04 Est GFR (MDRD) Non-Af > 60 (>60) 09/20/16 04:04 Glucose 84 mg/dL (65-99) 09/20/16 04:04 Calcium 8.5 mg/dL (8.5-10.1) 09/20/16 04:04 Corrected Calcium 10.0 mg/dL (8.5-10.1) 09/20/16 04:04 Total Bilirubin 0.50 mg/dL (0.2-1.0) 09/20/16 04:04 AST 39 Units/L (15-37) H 09/20/16 04:04 ALT 35 Units/L (12-78) 09/20/16 04:04 Alkaline Phosphatase 67 Units/L (46-116) 09/20/16 04:04 Total Protein 5.7 g/dL (6.4-8.2) L 09/20/16 04:04 Albumin 2.1 g/dL (3.4-5.0) L 09/20/16 04:04 Globulin 3.6 g/dL (2.5-4.5) 09/20/16 04:04 Albumin/Globulin Ratio 0.6 Ratio (1.1-2.1) L 09/20/16 04:04 - Plan (1) Weakness Status: Acute Plan: PT CONSULT, WEIGHT LOSS. NUTRITIONAL CONSULT (2) Homeless Status: Acute (3) Arthritis Status: Chronic (4) Cervical spine degeneration Status: Chronic Qualifiers: Spinal osteoarthritis complication: S Plan: PAIN CONTROL, PT, SKIN CHECKS HIGH RISK FOR SKIN BREAKDOWN (5) Depression Status: Chronic Qualifiers: Depression Type: D Major depression recurrence: M Active/Remission status : A Major depression episode severity: M Psychotic features: P Trimester: T (6) HTN (hypertension) Status: Chronic Qualifiers: Hypertension type: essential hypertension Qualified Code(s): I10 - Essential (primary) hypertension Plan: RESUME HOME MEDS
[2016-09-20] MEDS: COLACE CAP 100 MG PO SCH (21:42)
[2016-09-21] MEDS: NS 1000 ML 1,000 ML IV SCH ×2 (00:43→23:36)
[2016-09-21] MEDS: FLEXERIL TAB 10 MG PO SCH ×4 (02:28→20:43)
[2016-09-21] MEDS ORDERED: LEXAPRO ONE (07:58)
[2016-09-21] MEDS: KEFLEX CAP 500 MG PO SCH ×4 (09:12→20:42)
[2016-09-21] MEDS: LEXAPRO PO SCH (09:13)
[2016-09-21 10:51] VITALS: BMI 22.1
[2016-09-21] MEDS ORDERED: DUONEB 0.5 MG/3 MG NEB PRN (12:14)
--- NOTE | 2016-09-21 18:27 | PCM.PROG ---
Progress Note - Progress Note for Day of Date: 09/21/16 - Subjective Subjective: PT CONTINUED WITH UPPER AND LOWER EXTREMITY WEAKNESS. 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 PT ALSO SIGNIFICANTLY DECREASED LOWER EXTREMITY MUSCLE STRENGTH AND LIMITED MOBILITY. 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 PT CONTINUED, DISCUSSED POSSIBLE TRANSFER TO NEUROSURGEON/ TERTIARY CARE FACILTY. PATIENT'S HAS SIGNIFICANT CHANGE IN COMPLAINTS OR EXAM THIS A.M. - Past Medical Family Social History Past Med/Fam/Surg Hx: No changes since H&P Allergies: Allergies No Known Drug Allergy Allergy (Verified 09/18/16 13:18) - Review of Systems ROS: No change since H&P - Vital Signs and I&O's Vital Signs: Temperature 98.4 F Pulse Rate [Right Brachial] 85 Respiratory Rate 20 Blood Pressure [Left Arm] 190/92 Blood Pressure [Right Arm] 170/96 O2 Sat by Pulse Oximetry 92 Intake and Output: Intake & Output 09/19/16 09/20/16 09/21/16 09/22/16 11:59 11:59 11:59 11:59 Intake Total 1290 2670 2400 1460 Output Total 1025 1500 700 Balance 1290 1645 900 760 - Physical Exam Oriented: Normal Eyes: Normal Ear: Normal Nose: Normal Throat: Normal Respiratory: Diminished Cardiovascular: Normal : Normal Auscultation: Bowel Sounds: Normal Tenderness: Normal Skin: Decreased Turgur, Wound, Bruising Musculoskeletal: Back:Thoracic, Back:Lumbar, Motor Deficit (BILATERAL UPPER EXTREMITY AND LOWER EXTREMITY MUSCLE WEAKNESS) Psychiatric: Anxiety, Depression Mood Description: Withdrawn Affect: Depressed Speech Pattern: Clear, Appropriate - Laboratory and Diagnostics Result Diagrams: 09/20/16 04:04 09/20/16 04:04 Labs: Laboratory WBC 4.8 X10^3/uL (3.6-10.0) 09/20/16 04:04 RBC 3.95 X10^6/uL (4.7-6.0) L 09/20/16 04:04 Hgb 12.7 g/dL (13.5-18.0) L 09/20/16 04:04 Hct 37.0 % (42.0-54.0) L 09/20/16 04:04 MCV 93.7 fL (80.0-100.0) 09/20/16 04:04 MCH 32.1 pg (27.0-34.0) 09/20/16 04:04 MCHC 34.3 g/dL (33.0-35.0) 09/20/16 04:04 RDW 13.0 % (11.6-16.5) 09/20/16 04:04 Plt Count 180 X10^3/uL (150.0-450.0) 09/20/16 04:04 MPV 8.4 fL (7.4-11.0) 09/20/16 04:04 Neut % 59.5 % (42.0-75.0) 09/20/16 04:04 Lymph % 28.4 % (21.0-51.0) 09/20/16 04:04 [place] % 7.7 % (0.0-13.0) 09/20/16 04:04 Eos % 2.5 % (0.9-2.9) 09/20/16 04:04 Baso % 1.9 % (0.2-1.0) H 09/20/16 04:04 Neut # 2.8 x10^3/uL (2.2-4.8) 09/20/16 04:04 Lymph # 1.3 X10^3/uL (1.3-2.9) 09/20/16 04:04 [place] # 0.4 x10^3/uL (0.3-0.8) 09/20/16 04:04 Eos # 0.1 x10^3/uL (0.0-0.2) 09/20/16 04:04 Baso # 0.1 X10^3/uL (0.0-0.1) 09/20/16 04:04 Absolute Nucleated RBC 0.1 /100WBC 09/20/16 04:04 Sodium 143 mmol/L (136-145) 09/20/16 04:04 Corrected Sodium TNP 09/20/16 04:04 Potassium 3.5 mmol/L (3.5-5.1) 09/20/16 04:04 Chloride 109 mmol/L (98-107) H 09/20/16 04:04 Carbon Dioxide 25.3 mmol/L (21-32) 09/20/16 04:04 BUN 18 mg/dL (7-18) 09/20/16 04:04 Creatinine 0.76 mg/dL (0.70-1.30) 09/20/16 04:04 Est GFR (MDRD) Af Amer > 60 (>60) 09/20/16 04:04 Est GFR (MDRD) Non-Af > 60 (>60) 09/20/16 04:04 Glucose 84 mg/dL (65-99) 09/20/16 04:04 Calcium 8.5 mg/dL (8.5-10.1) 09/20/16 04:04 Corrected Calcium 10.0 mg/dL (8.5-10.1) 09/20/16 04:04 Total Bilirubin 0.50 mg/dL (0.2-1.0) 09/20/16 04:04 AST 39 Units/L (15-37) H 09/20/16 04:04 ALT 35 Units/L (12-78) 09/20/16 04:04 Alkaline Phosphatase 67 Units/L (46-116) 09/20/16 04:04 Total Protein 5.7 g/dL (6.4-8.2) L 09/20/16 04:04 Albumin 2.1 g/dL (3.4-5.0) L 09/20/16 04:04 Globulin 3.6 g/dL (2.5-4.5) 09/20/16 04:04 Albumin/Globulin Ratio 0.6 Ratio (1.1-2.1) L 09/20/16 04:04 - Plan (1) Weakness Status: Acute Plan: PT CONSULT, WEIGHT LOSS. NUTRITIONAL CONSULT (2) Homeless Status: Acute (3) Arthritis Status: Chronic (4) Cervical spine degeneration Status: Chronic Qualifiers: Spinal osteoarthritis complication: S Plan: PAIN CONTROL, PT, SKIN CHECKS HIGH RISK FOR SKIN BREAKDOWN (5) Depression Status: Chronic Qualifiers: Depression Type: D Major depression recurrence: M Active/Remission status : A Major depression episode severity: M Psychotic features: P Trimester: T (6) HTN (hypertension) Status: Chronic Qualifiers: Hypertension type: essential hypertension Qualified Code(s): I10 - Essential (primary) hypertension Plan: RESUME HOME MEDS
[2016-09-21] MEDS: COLACE CAP 100 MG PO SCH (20:42)
[2016-09-22] MEDS: FLEXERIL TAB 10 MG PO SCH ×2 (03:09→09:22)
[2016-09-22] MEDS: NS 1000 ML 1,000 ML IV SCH (04:03)
[2016-09-22 05:41] LABS: BASOPHILS # (AUTO) 0.1 X10^3/uL (0.0-0.1); BASOPHILS % (AUTO) 1.3 % (0.2-1.0); EOSINOPHILS # (AUTO) 0.1 x10^3/uL (0.0-0.2); HEMATOCRIT 37.7 % (42.0-54.0); HEMOGLOBIN 13.1 g/dL (13.5-18.0); LYMPHOCYTES # (AUTO) 1.4 X10^3/uL (1.3-2.9); LYMPHOCYTES % (AUTO) 28.1 % (21.0-51.0); MEAN CORPUSCULAR HEMOGLOBIN 32.3 pg (27.0-34.0); MEAN CORPUSCULAR HGB CONC 34.7 g/dL (33.0-35.0); MEAN PLATELET VOLUME 8.4 fL (7.4-11.0); MONOCYTES # (AUTO) 0.4 x10^3/uL (0.3-0.8); MONOCYTES % (AUTO) 8.1 % (0.0-13.0); NEUTROPHILS # (AUTO) 2.9 x10^3/uL (2.2-4.8); NEUTROPHILS % (AUTO) 59.5 % (42.0-75.0); PLATELET COUNT 172 X10^3/uL (150.0-450.0); RED BLOOD COUNT 4.06 X10^6/uL (4.7-6.0); RED CELL DISTRIBUTION WIDTH 13.1 % (11.6-16.5); WHITE BLOOD COUNT 4.9 X10^3/uL (3.6-10.0)
[2016-09-22 05:49] LABS: ALANINE AMINOTRANSFERASE 39 Units/L (12-78); ALBUMIN 2.5 g/dL (3.4-5.0); ALKALINE PHOSPHATASE 71 Units/L (46-116); ASPARTATE AMINO TRANSFERASE 29 Units/L (15-37); BLOOD UREA NITROGEN 13 mg/dL (7-18); CALCIUM 8.6 mg/dL (8.5-10.1); CARBON DIOXIDE 26.3 mmol/L (21-32); CHLORIDE 108 mmol/L (98-107); COR CA(FOR HYPOALB) 9.8 mg/dL (8.5-10.1); CREATININE 0.77 mg/dL (0.70-1.30); GLUCOSE 85 mg/dL (65-99); SODIUM 143 mmol/L (136-145); TOTAL PROTEIN 5.8 g/dL (6.4-8.2); eGFR BLACK RACES > 60 (>60); eGFR NON BLACK RACES > 60 (>60)
[2016-09-22] MEDS ORDERED: LEXAPRO ONE (08:40)
[2016-09-22] MEDS: LEXAPRO PO SCH (09:22)
[2016-09-22] MEDS: KEFLEX CAP 500 MG PO SCH ×2 (11:00→15:26)
[2016-09-22] MEDS ORDERED: DECADRON INJ IV SCH (12:00)
[2016-09-22 12:03] VITALS: BP 163/94
--- NOTE | 2016-09-22 14:10 | PCM.DCPLAN ---
Discharge Summary - Admission Date Date of Admission: 09/18/16 - Discharge Date Discharge Date: 09/22/16 - Admission Diagnoses (1) Weakness Status: Acute (2) Homeless Status: Acute (3) Arthritis Status: Chronic (4) Cervical spine degeneration Status: Chronic (5) Depression Status: Chronic (6) HTN (hypertension) Status: Chronic - Discharge Diagnoses Discharge Diagnosis: SAME ADMISSION - Hospital Course Vital Signs: Temperature 98.2 F Pulse Rate [Right Brachial] 81 Pulse Rate 86 Respiratory Rate 20 Blood Pressure [Left Arm] 102/71 Blood Pressure [Right Arm] 163/94 O2 Sat by Pulse Oximetry 95 Latest Lab Results: Laboratory Last Values WBC 4.9 X10^3/uL (3.6-10.0) 09/22/16 03:40 RBC 4.06 X10^6/uL (4.7-6.0) L 09/22/16 03:40 Hgb 13.1 g/dL (13.5-18.0) L 09/22/16 03:40 Hct 37.7 % (42.0-54.0) L 09/22/16 03:40 MCV 93.0 fL (80.0-100.0) 09/22/16 03:40 MCH 32.3 pg (27.0-34.0) 09/22/16 03:40 MCHC 34.7 g/dL (33.0-35.0) 09/22/16 03:40 RDW 13.1 % (11.6-16.5) 09/22/16 03:40 Plt Count 172 X10^3/uL (150.0-450.0) 09/22/16 03:40 MPV 8.4 fL (7.4-11.0) 09/22/16 03:40 Neut % 59.5 % (42.0-75.0) 09/22/16 03:40 Lymph % 28.1 % (21.0-51.0) 09/22/16 03:40 [place] % 8.1 % (0.0-13.0) 09/22/16 03:40 Eos % 3.0 % (0.9-2.9) H 09/22/16 03:40 Baso % 1.3 % (0.2-1.0) H 09/22/16 03:40 Neut # 2.9 x10^3/uL (2.2-4.8) 09/22/16 03:40 Lymph # 1.4 X10^3/uL (1.3-2.9) 09/22/16 03:40 [place] # 0.4 x10^3/uL (0.3-0.8) 09/22/16 03:40 Eos # 0.1 x10^3/uL (0.0-0.2) 09/22/16 03:40 Baso # 0.1 X10^3/uL (0.0-0.1) 09/22/16 03:40 Absolute Nucleated RBC 0.1 /100WBC 09/22/16 03:40 Sodium 143 mmol/L (136-145) 09/22/16 03:40 Corrected Sodium TNP 09/22/16 03:40 Potassium 3.5 mmol/L (3.5-5.1) 09/22/16 03:40 Chloride 108 mmol/L (98-107) H 09/22/16 03:40 Carbon Dioxide 26.3 mmol/L (21-32) 09/22/16 03:40 BUN 13 mg/dL (7-18) 09/22/16 03:40 Creatinine 0.77 mg/dL (0.70-1.30) 09/22/16 03:40 Est GFR (MDRD) Af Amer > 60 (>60) 09/22/16 03:40 Est GFR (MDRD) Non-Af > 60 (>60) 09/22/16 03:40 Glucose 85 mg/dL (65-99) 09/22/16 03:40 Calcium 8.6 mg/dL (8.5-10.1) 09/22/16 03:40 Corrected Calcium 9.8 mg/dL (8.5-10.1) 09/22/16 03:40 Total Bilirubin 0.30 mg/dL (0.2-1.0) 09/22/16 03:40 AST 29 Units/L (15-37) 09/22/16 03:40 ALT 39 Units/L (12-78) 09/22/16 03:40 Alkaline Phosphatase 71 Units/L (46-116) 09/22/16 03:40 Total Protein 5.8 g/dL (6.4-8.2) L 09/22/16 03:40 Albumin 2.5 g/dL (3.4-5.0) L 09/22/16 03:40 Globulin 3.3 g/dL (2.5-4.5) 09/22/16 03:40 Albumin/Globulin Ratio 0.8 Ratio (1.1-2.1) L 09/22/16 03:40 Hospital Course: PATIENT IS A 61-YEAR-OLD WHITE MALE WHO WAS ADMITTED FROM THE EMERGENCY ROOM AFTER PRESENTING WITH MULTIPLE ABRASIONS FROM [place]. 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 pATIENT HAS EXPERIENCED WEIGHT LOSS AND PROGRESSION OF LOSS OF UPPER EXTREMITY MOTOR STRENGTH AND HAS DIFFUSE MUSCLE ATROPHY. pATIENT ALSO IS REQUIRING MAXIMUM ASSISTANCE WITH AMBULATION WHICH ARE ALL NEW FINDINGS. dUE TO PROGRESSION OF NEUROMUSCULAR DISEASE PATIENT IS BEING TRANSFERRED TO [facility] WHICH IS A TERTIARY CARE FACILITY FOR ADVANCED TREATMENT. PATIENT IS CONDITION IS GUARDED HOWEVER STABLE. pATIENT'S PAIN IS CONTROLLED AT THIS TIME pATIENT WILL BE TRANSFERRED PER ems, CONTINUE CURRENT MEDICATION, AND FOLLOW-UP WITH PRIMARY CARE AFTER DISCHARGE. - Discharge Plan Disposition: XFER OTHER Condition: Stable - Follow ups/Referrals Follow ups/Referrals: NFD,None [Primary Care Provider] - 3 days - Instructions Instructions: Osteoarthritis
--- NOTE | 2016-09-22 15:05 | MRI ---
MRI lumbar spine without contrast Indication: Numbness with the extremities with limited mobility Technique: Multiplanar, multi sequence imaging of the lumbar spine without IV contrast administratio n. Findings: Lumbar spine alignment is maintained. There is diffuse decreased T1 signal throughout the lumbar spine. There is mild disk desiccation throughout the lumbar spine however there is moderate d isk desiccation and disk space loss at L4-5 and L5-S1. There is edema noted within the paraspinal mu sculature of the lower lumbar spine without localizing fluid collection. No prevertebral fluid colle ction or soft tissue swelling. The conus has a normal termination. At L1-2 unremarkable At L2-3 mild facet arthropathy with fluid within the left facet joint causes mild spinal canal steno sis without neural foraminal narrowing. At L3-4 mild facet arthropathy without significant disc bulge causes mild spinal canal stenosis with bilateral mild to moderate neural foraminal narrowing. At L4-5 broad-based disc bulge with advanced facet arthropathy causes severe spinal canal stenosis w ith bilateral severe neural foraminal narrowing. At L5-S1 broad-based disc bulge with moderate facet arthropathy causes mild spinal canal stenosis ca using severe bilateral neural foraminal narrowing. There is fairly severe thickening of the exiting left S1 nerve root seen best on axial image 32. Impression: Multilevel discogenic degenerative change and facet arthropathy causing varying degrees of spinal canal and neural foraminal stenosis as described above, at L4-5 and L5-S1 there is combina tion of severe spinal canal and neural foraminal stenosis. 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 Reported By:
--- NOTE | 2016-09-22 15:21 | MRI ---
MRI cervical spine without contrast Indication: Numbness in extremities, neck pain with decreased mobility Technique: Multiplanar, multi sequence imaging of the cervical spine without IV contrast administrat ion. Comparison: 06/19/2016 Findings: Today's examination is limited given motion artifact . When compared to prior examination there has been progression in spinal canal stenosis there is now complete effacement of the thecal s ac and cord compression spanning C3-C6 consistent with severe spinal canal stenosis secondary to com bination of facet arthropathy discogenic degenerative change and congenital spinal canal stenosis. E valuation is limited however there it appears to be stable lower mild increased T2/STIR signal withi n the cord spanning C3-C6 consistent with myelomalacia. At C2-3 disc osteophyte complex and uncovertebral hypertrophy causes mild spinal canal stenosis with mild to moderate right and mild left-sided neural foraminal narrowing. At C6-7 disc osteophyte comp pina and uncovertebral hypertrophy causes mild spinal canal stenosis with moderate to severe right an d mild to moderate left-sided neural foraminal stenosis. At C7-T1 no significant discogenic degenerative change with bilateral facet arthropathy causes no sp inal canal stenosis or significant neural foraminal narrowing. Heterogeneous marrow signal seen throughout the cervical spine with loss of normal cervical lordosis . There is no prevertebral or paraspinal soft tissue swelling. Posterior fossa demonstrates no mass or mass effect. Craniocervical junction is intact. Impression: Since prior examination there has been progression in spinal canal stenosis now with complete efface ment of the thecal sac and cord compression spanning C3-4, C4-5 and C5-6 consistent with severe spin al canal stenosis. No significant change in internal T2/STIR signal hyperintensity within the cord s panning C3-C6 consistent with myelomalacia. Multilevel discogenic degenerative change and facet arthropathy causing lesser degrees of spinal can al and neural foraminal stenosis within the remaining cervical spine as described above. Reported By:
== END 2016-09-22 15:00 | disposition short-term general hospital (02) ==
LOC: ER 12:56 → MED/SURG 19:46
PROVIDERS: ADMIT Internal Medicine; ATTEND Internal Medicine
DX: T14.8 Other injury of unspecified body region (principal); W17.89XA Other fall from one level to another, initial encounter; R29.6 Repeated falls; M47.23 Other spondylosis with radiculopathy, cervicothoracic region; M13.89 Other specified arthritis, multiple sites; J44.9 Chronic obstructive pulmonary disease, unspecified; M62.81 Muscle weakness (generalized); R20.0 Anesthesia of skin; D72.828 Other elevated white blood cell count; R26.89 Other abnormalities of gait and mobility; Z59.0 Homelessness; R53.1 Weakness; F32.89 Other specified depressive episodes; I10 Essential (primary) hypertension
CPT/HCPCS: 36415; 72141; 72148; 80053; 85025; 94640; 94760; 96365; 97535; 99218; 99284; A4216; G0378; J1100; J7620